=== PATIENT | female | born 1955 | race African-American/Black ===

== ENCOUNTER 2017-12-19 11:04 | Emergency (ER) | payer SELFPAY ==
[2017-12-19] MEDS ORDERED: predniSONE 20 MG TAB ONE (12:38)
[2017-12-19] MEDS ORDERED: ACETAMINOPHEN 500 MG TAB ONE (12:38)
[2017-12-19] MEDS ORDERED: DIAZEPAM 10 MG/2 ML INJ SYRINGE ONE (12:42)
--- NOTE | 2017-12-19 13:29 | EDPHYS ---
Physician Documentation [facility] Name: Jahaira Coe Age: 62 yrs Sex: Female : 1955 Arrival Date: 12/19/2017 Time: 11:06 Bed 20 Private MD: ED Physician Vadim Esposito HPI: 12/19 13:20 This 62 yrs old Black Female presents to ER via Ambulatory with complaints of Back Pain.wa 13:20 The patient presents with pain that is chronic, with no known mechanism of injury. The wa symptoms are located in the low back, coccyx area. Onset: The symptoms/episode began/occurred 3 day(s) ago, h/o back pain. states worsen x 3 days. radiates down both legs. no incontinence. down both legs. Associated signs and symptoms: Pertinent positives: numbness, tingling, Pertinent negatives: abdominal pain, chest pain, constipation, dysuria. The problem was sustained from a chronic condition. Modifying factors: The patient symptoms are alleviated by nothing, the patient symptoms are aggravated by movement. Severity of symptoms: At their worst the symptoms were moderate, in the emergency department the symptoms are unchanged. The patient has experienced similar episodes in the past, multiple times. The patient has not recently seen a physician. Historical: - Allergies: 11:29 No Known Allergies; aa5 - PMHx: 11:29 "borderline diabetic"; Hypertension; herniated discs; aa5 - PSHx: 11:29 ; Hysterectomy; aa5 - Immunization history:: Adult Immunizations up to date. - Social history:: Smoking status: Patient/guardian denies using tobacco. - Family history:: not pertinent. - Hospitalizations: : No recent hospitalization is reported. ROS: 13:26 Constitutional: Negative for fever, chills, and weight loss, Eyes: Negative for injury, wa pain, redness, and discharge, ENT: Negative for injury, pain, and discharge, Neck: Negative for injury, pain, and swelling, Cardiovascular: Negative for chest pain, palpitations, and edema, Respiratory: Negative for shortness of breath, cough, wheezing, and pleuritic chest pain, Abdomen/GI: Negative for abdominal pain, nausea, vomiting, diarrhea, and constipation, : Negative for injury, bleeding, discharge, and swelling, MS/Extremity: Negative for injury and deformity, Skin: Negative for injury, rash, and discoloration. 13:26 Back: Positive for pain with movement. 13:26 Neuro: Positive for numbness, tingling, of the both lower extremities. 13:26 All other systems are negative. Vital Signs: 11:29 BP 117 / 86; Pulse 91; Resp 18 S; Temp 98.2(TE); Pulse Ox 97% on R/A; Weight 83.91 kg aa5 (R); Height 5 ft. 4 in. (162.56 cm) (R); Pain 9/10; 12:29 BP 123 / 77; Pulse 84; Resp 18; Pulse Ox 100% on R/A; Pain 9/10; ed1 13:26 BP 120 / 75; Pulse 88; Resp 17; Temp 98.3(O); Pulse Ox 100% on R/A; Pain 6/10; ed1 11:29 Body Mass Index 31.75 (83.91 kg, 162.56 cm) aa5 MDM: 12:19 Patient medically screened. va 13:27 Differential diagnosis: chronic. acute on chronic. pain relief. close f/u with her doc. va Data reviewed: vital signs, nurses notes. Administered Medications: 12:51 Drug: Valium 5 mg Route: IM; Site: left gluteus; ed1 13:35 Follow up: Response: No adverse reaction; Pain is decreased ed1 12:52 Drug: Tylenol 1000 mg Route: PO; ed1 13:35 Follow up: Response: No adverse reaction; Pain is decreased ed1 12:52 Drug: predniSONE 40 mg Route: PO; ed1 13:35 Follow up: Response: No adverse reaction ed1 Disposition: 12/19/17 13:29 Discharged to Home. Impression: Low banck Pain with radiculopathy. - Condition is Stable. - Discharge Instructions: Back Pain, Adult, [id number]. - Prescriptions for Valium 5 mg Oral Tablet - take 1 tablet by ORAL route Every night As needed; 6 tablet. Prednisone 20 mg Oral Tablet - take 2 tablets by ORAL route once daily for 4 days; 8 tablet. - Medication Reconciliation Form, Thank You Letter, Antibiotic Education, Prescription Opioid Use form. - Follow up: Private Physician; When: 2 - 3 days. - Problem is an acute exacerbation. - Symptoms have improved. - Notes: take medicines as prescribed. follow up with your doctor within 2-3 days Signatures: Mindi Duarte, RN RN aa5 Jacqueline Turner, TRAFFIC LINE PAINTER TRAFFIC LINE PAINTER ed1 Vadim Esposito MD MD wa Corrections: (The following items were deleted from the chart) 13:36 13:29 12/19/2017 13:29 Discharged to Home. Impression: Low banck Pain with ed1 radiculopathy. Condition is Stable. Forms are Medication Reconciliation Form, Thank You Letter, Antibiotic Education, Prescription Opioid Use. Follow up: Private Physician; When: 2 - 3 days. Problem is an acute exacerbation. Symptoms have improved. wa
--- NOTE | 2017-12-19 13:29 | ER ---
Nurse's Notes [facility] Name: Jahaira Coe Age: 62 yrs Sex: Female : 1955 Arrival Date: 12/19/2017 Time: 11:06 Bed 20 Private MD: Diagnosis: Low banck Pain with radiculopathy Presentation: 12/19 11:27 Presenting complaint: Patient states: "I have 3 herniated disc on my back and I think I aa5 aggravated it yesterday". Pt c/o back pain. Transition of care: patient was not received from another setting of care. Onset of symptoms was December 18, 2017. Initial Sepsis Screen: Does the patient meet any 2 criteria? No. Patient's initial sepsis screen is negative. Does the patient have a suspected source of infection? No. Patient's initial sepsis screen is negative. Care prior to arrival: None. 11:27 Method Of Arrival: Ambulatory aa5 11:27 Acuity: LUIGI 4 aa5 Historical: - Allergies: 11:29 No Known Allergies; aa5 - PMHx: 11:29 "borderline diabetic"; Hypertension; herniated discs; aa5 - PSHx: 11:29 ; Hysterectomy; aa5 - Immunization history:: Adult Immunizations up to date. - Social history:: Smoking status: Patient/guardian denies using tobacco. - Family history:: not pertinent. - Hospitalizations: : No recent hospitalization is reported. Screenin:12 Abuse screen: Denies threats or abuse. Denies injuries from another. Nutritional ed1 screening: No deficits noted. Tuberculosis screening: No symptoms or risk factors identified. Fall Risk None identified. Assessment: 12:12 General: Appears uncomfortable, Behavior is calm, cooperative. Pain: Complains of pain ed1 in low back area Pain radiates to right leg and left leg Pain currently is 9 out of 10 on a pain scale. Quality of pain is described as sharp, shooting, Pain began 2-3 days ago. Is continuous. Neuro: Level of Consciousness is awake, alert, obeys commands, Oriented to person, place, time, situation, Admissions Dean are equal bilaterally Moves all extremities. Full function Gait is steady, Speech is normal, Facial symmetry appears normal, Pupils are PERRLA, Tingling in right leg and left leg. Cardiovascular: Denies chest pain, Heart tones S1 S2 present. Respiratory: Airway is patent Trachea midline Respiratory effort is even, unlabored, Respiratory pattern is regular, symmetrical, Breath sounds are clear bilaterally. GI: No signs and/or symptoms were reported involving the gastrointestinal system. : No signs and/or symptoms were reported regarding the genitourinary system. EENT: No signs and/or symptoms were reported regarding the EENT system. Derm: Skin is intact, is healthy with good turgor, Skin is dry, Skin is normal, Skin temperature is warm. Musculoskeletal: Circulation, motion, and sensation intact. Range of motion: intact in all extremities. 12:12 Reassessment: I agree with assessment completed by PAM Phillips. iw 12:29 Reassessment: Patient appears in no apparent distress at this time. No changes from ed1 previously documented assessment. Patient and/or family updated on plan of care and expected duration. Pain level reassessed. Patient is alert, oriented x 3, equal unlabored respirations, skin warm/dry/pink. Patient states symptoms have not improved. 13:26 Reassessment: Patient appears in no apparent distress at this time. Patient and/or ed1 family updated on plan of care and expected duration. Pain level reassessed. Patient is alert, oriented x 3, equal unlabored respirations, skin warm/dry/pink. Patient states feeling better. Patient states symptoms have improved. Vital Signs: 11:29 BP 117 / 86; Pulse 91; Resp 18 S; Temp 98.2(TE); Pulse Ox 97% on R/A; Weight 83.91 kg aa5 (R); Height 5 ft. 4 in. (162.56 cm) (R); Pain 9/10; 12:29 BP 123 / 77; Pulse 84; Resp 18; Pulse Ox 100% on R/A; Pain 9/10; ed1 13:26 BP 120 / 75; Pulse 88; Resp 17; Temp 98.3(O); Pulse Ox 100% on R/A; Pain 6/10; ed1 11:29 Body Mass Index 31.75 (83.91 kg, 162.56 cm) aa5 ED Course: 11:06 Patient arrived in ED. as 11:28 Triage completed. aa5 11:28 Arm band placed on. aa5 12:12 Jacqueline Turner LVN is Primary Nurse. ed1 12:12 Patient has correct armband on for positive identification. Bed in low position. Call ed1 light in reach. Side rails up X 1. 12:18 Vadim Esposito MD is Attending Physician. 13:34 No provider procedures requiring assistance completed. Patient did not have IV access ed1 during this emergency room visit. Administered Medications: 12:51 Drug: Valium 5 mg Route: IM; Site: left gluteus; ed1 13:35 Follow up: Response: No adverse reaction; Pain is decreased ed1 12:52 Drug: Tylenol 1000 mg Route: PO; ed1 13:35 Follow up: Response: No adverse reaction; Pain is decreased ed1 12:52 Drug: predniSONE 40 mg Route: PO; ed1 13:35 Follow up: Response: No adverse reaction ed1 Outcome: 13:29 Discharge ordered by . wa 13:34 Discharged to home ambulatory, with family. ed1 13:34 Condition: good 13:34 Discharge instructions given to patient, Instructed on discharge instructions, follow up and referral plans. medication usage, Demonstrated understanding of instructions, follow-up care, medications, Prescriptions given X 2. 13:36 Patient left the ED. ed1 Signatures: Christina Lyles Irene, RN RN iw Mindi Duarte RN RN aa5 Jacqueline Turner, ADJUSTER ADJUSTER ed1 Vadim Esposito MD MD dc
[2017-12-19 13:42] VITALS: O2SAT 100
[2017-12-19 13:43] VITALS: BP 120/75; TEMP 98.3
== END 2017-12-19 13:36 | disposition home or self-care (01) ==
LOC: ER 11:04
DX: M51.17 Intervertebral disc disorders with radiculopathy, lumbosacral region (principal); I10 Essential (primary) hypertension
CPT/HCPCS: 96372; 99283; J3360; J7512

== ENCOUNTER 2018-06-09 22:11 | Emergency (ER) | payer SELFPAY ==
[2018-06-09] MEDS ORDERED: NA CHLORIDE 0.9% 1,000 ML ONE (22:32)
[2018-06-09] MEDS ORDERED: ONDANSETRON 4 MG/2 ML VIAL ONE (22:34)
[2018-06-09 22:48] LABS: Absolute Lymphocytes (CBC) 5.5 K/uL (0.7-4.9); Absolute Neutrophil 8.5 K/uL (1.8-8.0); Basophils % 0.8 % (0-1.3); Eosinophils % 1.1 % (0-4.4); Hematocrit 39.2 % (36.0-45.0); Lymphocytes % 35.9 % (15.3-44.8); MCH 29.9 pg (27.0-35.0); MCV 88.9 fL (80-100); MPV 9.5 fL (7.6-11.3); Monocytes % 6.6 % (3.3-12.3); RBC Red Blood Cell Count 4.41 M/uL (3.86-4.86)
[2018-06-09 23:00] LABS: ALT/SGPT 14 U/L (12-78); AST/SGOT 13 U/L (15-37); Albumin 3.7 g/dL (3.4-5.0); Alkaline Phosphatase 68 U/L (45-117); BUN Blood Urea Nitrogen 13 mg/dL (7-18); Bicarbonate 34 mmol/L (21-32); Bilirubin Direct < 0.1 mg/dL (0-0.2); Bilirubin Total 0.2 mg/dL (0.2-1.0); Glucose Level 124 mg/dL (74-106); Lipase 133 U/L (73-393); Potassium 3.4 mmol/L (3.5-5.1); Protein, Total 8.3 g/dL (6.4-8.2); Sodium Level 139 mmol/L (136-145)
--- NOTE | 2018-06-10 01:19 | EDPHYS ---
Physician Documentation [facility] Name: Jahaira Coe Age: 62 yrs Sex: Female : 1955 Arrival Date: 06/09/2018 Time: 22:12 Bed 20 Private MD: ED Physician Ryan Segovia HPI: 06/10 00:00 This 62 yrs old Black Female presents to ER via Ambulatory with complaints of Diarrhea, pm1 nausea, abdominal pain. 00:00 The patient presents to the emergency department with nausea, vomiting, 3 times since pm1 the onset of symptoms, diarrhea, On and off for the past 1 week. 3 times diarrhea per day when she had diarrhea, abdominal pain, of the right lower quadrant and left lower quadrant, described as crampy, and does not radiate. Onset: The symptoms/episode began/occurred 1 week(s) ago. Possible causes: bad food exposure, salad. The symptoms are aggravated by nothing. The symptoms are alleviated by nothing. Associated signs and symptoms: Pertinent negatives: dysuria, fever. Severity of symptoms: in the emergency department the symptoms have improved. The patient has not recently seen a physician. Believes that she ate a bad salad prior to onset of symptoms of vomiting, diarrhea, and abdominal cramping. Onset of symptoms one week ago. Diarrhea and vomiting have not been everyday. Historical: - Allergies: 06/09 22:20 No Known Allergies; lp1 - Home Meds: 22:20 losartan 25 mg oral tab once daily [Active]; metformin 500 mg oral tab PRN [Active]; lp1 - PMHx: 22:20 "borderline diabetic"; herniated discs; Hypertension; lp1 - PSHx: 22:20 ; Hysterectomy; lp1 - Immunization history:: Adult Immunizations up to date. - Social history:: Smoking status: Patient/guardian denies using tobacco. - Ebola Screening: : No symptoms or risks identified at this time. ROS: 06/10 00:00 Constitutional: Negative for fever, chills, and weight loss, Eyes: Negative for injury, pm1 pain, redness, and discharge, ENT: Negative for injury, pain, and discharge, Neck: Negative for injury, pain, and swelling, Cardiovascular: Negative for chest pain, palpitations, and edema, Respiratory: Negative for shortness of breath, cough, wheezing, and pleuritic chest pain. Back: Negative for injury and pain, : Negative for injury, bleeding, discharge, and swelling, MS/Extremity: Negative for injury and deformity, Skin: Negative for injury, rash, and discoloration, Neuro: Negative for headache, weakness, numbness, tingling, and seizure. Abdomen/GI: Positive for abdominal pain, nausea, vomiting, and diarrhea, Negative for constipation. Exam: 00:00 Constitutional: This is a well developed, well nourished patient who is awake, alert, pm1 and in no acute distress. Head/Face: Normocephalic, atraumatic. Eyes: Pupils equal round and reactive to light, extra-ocular motions intact. Lids and lashes normal. Conjunctiva and sclera are non-icteric and not injected. Cornea within normal limits. Periorbital areas with no swelling, redness, or edema. ENT: Nares patent. No nasal discharge, no septal abnormalities noted. Tympanic membranes are normal and external auditory canals are clear. Oropharynx with no redness, swelling, or masses, exudates, or evidence of obstruction, uvula midline. Mucous membranes moist. Neck: Trachea midline, no thyromegaly or masses palpated, and no cervical lymphadenopathy. Supple, full range of motion without nuchal rigidity, or vertebral point tenderness. No Meningismus. Chest/axilla: Normal chest wall appearance and motion. Nontender with no deformity. No lesions are appreciated. Cardiovascular: Regular rate and rhythm with a normal S1 and S2. No gallops, murmurs, or rubs. Normal PMI, no JVD. No pulse deficits. Respiratory: Lungs have equal breath sounds bilaterally, clear to auscultation and percussion. No rales, rhonchi or wheezes noted. No increased work of breathing, no retractions or nasal flaring. Abdomen/GI: Soft, non-tender, with normal bowel sounds. No distension or tympany. No guarding or rebound. No evidence of tenderness throughout. Back: No spinal tenderness. No costovertebral tenderness. Full range of motion. Skin: Warm, dry with normal turgor. Normal color with no rashes, no lesions, and no evidence of cellulitis. MS/ Extremity: Pulses equal, no cyanosis. Neurovascular intact. Full, normal range of motion. 00:00 Neuro: Orientation: is normal, Motor: is normal, moves all fours. Vital Signs: 06/09 22:20 BP 135 / 83; Pulse 88; Resp 18; Temp 98.5(O); Pulse Ox 95% on R/A; Weight 83.46 kg; lp1 Height 5 ft. 4 in. (162.56 cm); Pain 6/10; 23:12 BP 129 / 55; Pulse 68; Resp 16 S; Pulse Ox 100% on R/A; jd3 06/10 00:08 BP 124 / 76; Pulse 73; Resp 16 S; Pulse Ox 97% on R/A; jd3 01:27 BP 129 / 83; Pulse 72; Resp 17 S; Pulse Ox 98% on R/A; jd3 06/09 22:20 Body Mass Index 31.58 (83.46 kg, 162.56 cm) lp1 MDM: 06/09 22:14 Patient medically screened. pm1 06/10 01:14 Data reviewed: vital signs. Data interpreted: Pulse oximetry: on room air is 97 %. pm1 Interpretation: normal. Counseling: I had a detailed discussion with the patient and/or guardian regarding: the historical points, exam findings, and any diagnostic results supporting the discharge/admit diagnosis, lab results, radiology results, the need for outpatient follow up, to return to the emergency department if symptoms worsen or persist or if there are any questions or concerns that arise at home. 01:14 Differential diagnosis: Nonspecific abd pain, cholecystitis, pancreatitis, pm1 appendicitis, viral gastroenteritis, gastroenteritis. 06/09 22:22 Order name: Basic Metabolic Panel; Complete Time: 23:00 pm1 06/09 22:22 Order name: CBC with Diff; Complete Time: 23:00 pm1 06/09 22:22 Order name: Hepatic Function; Complete Time: 23:00 pm1 06/09 22:22 Order name: Lipase; Complete Time: 23:00 pm1 06/09 22:22 Order name: CT Abd/Pelvis - W/Contrast pm1 06/09 22:22 Order name: IV Saline Lock; Complete Time: 22:33 pm1 06/09 22:22 Order name: Labs collected and sent; Complete Time: 22:33 pm1 06/09 22:22 Order name: Urine Dipstick-Ancillary (obtain specimen); Complete Time: 00:01 pm1 Administered Medications: 06/09 22:25 Drug: NS 0.9% 1000 ml Route: IV; Rate: 1000 ml; Site: right antecubital; ea 06/10 01:28 Follow up: Response: No adverse reaction; IV Status: Completed infusion; IV Intake: jd3 1000ml 06/09 22:25 Drug: Zofran 4 mg Route: IVP; Site: right antecubital; ea 06/10 01:28 Follow up: Response: No adverse reaction [facility] 06/09 22:32 CANCELLED (Duplicate Order): Zofran 2 mg IVP once; over 2 minutes ea Disposition: 06/10 02:06 Co-signature as Attending Physician, Ryan Segovia MD I agree with the assessment and tw4 plan of care. Attestation: The patient's history, exam findings, diagnostics, and a summary of any interventions or procedures was reviewed in detail with Alvin Easley NP. Disposition: 06/10/18 01:15 Discharged to Home. Impression: Diarrhea, unspecified, Nausea and vomiting, Viral gastroenteritis . - Condition is Stable. - Discharge Instructions: Food Choices to Help Relieve Diarrhea, Adult, Diarrhea, Adult, Nausea and Vomiting, Adult, Viral Gastroenteritis, Adult. - Prescriptions for Bentyl 20 mg Oral Tablet - take 1 tablet by ORAL route every 6 hours As needed; 20 tablet. Zofran 4 mg Oral Tablet - take 1 tablet by ORAL route every 12 hours As needed; 20 tablet. - Medication Reconciliation Form, Thank You Letter, Antibiotic Education, Prescription Opioid Use, Work release form form. - Follow up: Emergency Department; When: As needed; Reason: Worsening of condition. Follow up: Private Physician; When: 2 - 3 days; Reason: Recheck today's complaints, Continuance of care, Re-evaluation by your physician. - Problem is new. - Symptoms have improved. Signatures: Dispatcher [employer] EDMS Daisy Lay RN RN lp1 Alvin Easley NP [employer] pm1 Tamiko Milner RN RN ea Davies, Jonathon, RN RN Ryan Coates MD MD tw4 Corrections: (The following items were deleted from the chart) 06/0932 22:32 Zofran 2 mg IVP once; over 2 minutes ordered. selene morton 06/10 01:28 01:15 06/10/2018 01:15 Discharged to Home. Impression: Diarrhea, unspecified; Nausea jd3 and vomiting; Viral gastroenteritis . Condition is Stable. Forms are Medication Reconciliation Form, Thank You Letter, Antibiotic Education, Prescription Opioid Use. Follow up: Emergency Department; When: As needed; Reason: Worsening of condition. Follow up: Private Physician; When: 2 - 3 days; Reason: Recheck today's complaints, Continuance of care, Re-evaluation by your physician. Problem is new. Symptoms have improved. pm1
--- NOTE | 2018-06-10 01:19 | ER ---
Nurse's Notes [facility] Name: Jahaira Coe Age: 62 yrs Sex: Female : 1955 Arrival Date: 06/09/2018 Time: 22:12 Bed 20 Private MD: Diagnosis: Diarrhea, unspecified;Nausea and vomiting;Viral gastroenteritis Presentation: 06/09 22:18 Presenting complaint: Patient states: Generalized abdominal pain for a week and a half; lp1 some nausea, vomiting, diarrhea; Denies any fever. Transition of care: patient was not received from another setting of care. Onset of symptoms was June 09, 2018. Risk Assessment: Do you want to hurt yourself or someone else? Patient reports no desire to harm self or others. Initial Sepsis Screen: Does the patient meet any 2 criteria? No. Patient's initial sepsis screen is negative. Does the patient have a suspected source of infection? No. Patient's initial sepsis screen is negative. Care prior to arrival: None. 22:18 Method Of Arrival: Ambulatory lp1 22:18 Acuity: LUIGI 3 lp1 Historical: - Allergies: 22:20 No Known Allergies; lp1 - Home Meds: 22:20 losartan 25 mg oral tab once daily [Active]; metformin 500 mg oral tab PRN [Active]; lp1 - PMHx: 22:20 "borderline diabetic"; herniated discs; Hypertension; lp1 - PSHx: 22:20 ; Hysterectomy; lp1 - Immunization history:: Adult Immunizations up to date. - Social history:: Smoking status: Patient/guardian denies using tobacco. - Ebola Screening: : No symptoms or risks identified at this time. Screenin:20 Abuse screen: Denies threats or abuse. Denies injuries from another. Nutritional lp1 screening: No deficits noted. Tuberculosis screening: No symptoms or risk factors identified. Fall Risk None identified. Assessment: 22:31 General: Appears in no apparent distress. uncomfortable, Behavior is calm, cooperative, jd3 appropriate for age. Pain: Complains of pain in abdomen Quality of pain is described as aching, Also complains of nausea. Neuro: Level of Consciousness is awake, alert, obeys commands, Oriented to person, place, time, situation, Appropriate for age. Cardiovascular: Denies chest pain, Capillary refill < 3 seconds Patient's skin is warm and dry. Respiratory: Airway is patent Respiratory effort is even, unlabored, Respiratory pattern is regular, symmetrical, Denies shortness of breath. GI: Abdomen is round non-distended, Bowel sounds present X 4 quads. Abd is soft X 4 quads Abdomen is tender to palpation in right lower quadrant and left lower quadrant Reports diarrhea, nausea, vomiting. : No signs and/or symptoms were reported regarding the genitourinary system. EENT: No signs and/or symptoms were reported regarding the EENT system. Derm: Skin is intact, Skin is dry, Skin is normal, Skin temperature is warm. Musculoskeletal: Circulation, motion, and sensation intact. Range of motion: intact in all extremities. 22:54 Reassessment: CT notified of pt finishing PO contrast. jd3 23:12 Reassessment: Patient appears in no apparent distress at this time. Patient and/or [facility] family updated on plan of care and expected duration. Pain level reassessed. Patient is alert, oriented x 3, equal unlabored respirations, skin warm/dry/pink. 06/10 00:09 Reassessment: Patient appears in no apparent distress at this time. No changes from jd3 previously documented assessment. Patient and/or family updated on plan of care and expected duration. Pain level reassessed. Patient is alert, oriented x 3, equal unlabored respirations, skin warm/dry/pink. 01:27 Reassessment: Patient appears in no apparent distress at this time. Patient and/or jd3 family updated on plan of care and expected duration. Pain level reassessed. Patient is alert, oriented x 3, equal unlabored respirations, skin warm/dry/pink. Patient states feeling better. Vital Signs: 06/09 22:20 BP 135 / 83; Pulse 88; Resp 18; Temp 98.5(O); Pulse Ox 95% on R/A; Weight 83.46 kg; lp1 Height 5 ft. 4 in. (162.56 cm); Pain 6/10; 23:12 BP 129 / 55; Pulse 68; Resp 16 S; Pulse Ox 100% on R/A; jd3 06/10 00:08 BP 124 / 76; Pulse 73; Resp 16 S; Pulse Ox 97% on R/A; jd3 01:27 BP 129 / 83; Pulse 72; Resp 17 S; Pulse Ox 98% on R/A; jd3 06/09 22:20 Body Mass Index 31.58 (83.46 kg, 162.56 cm) lp1 ED Course: 06/09 22:12 Patient arrived in ED. ds1 22:14 Ernesto Carmen, RANDAL is Primary Nurse. jd3 22:14 Alvin Easley NP is PHCP. pm1 22:14 Ryan Segovia MD is Attending Physician. pm1 22:19 Triage completed. lp1 22:20 Arm band placed on left wrist. lp1 22:23 Inserted saline lock: 20 gauge in right antecubital area, using aseptic technique. jd3 Blood collected. 22:31 Patient has correct armband on for positive identification. Bed in low position. Call jd3 light in reach. Side rails up X2. Adult w/ patient. 22:44 Oral contrast given. nj 06/10 00:[address] via wheelchair. kw1 00:23 CT Abd/Pelvis - W/Contrast In Process Unspecified. EDMS 00:24 CT completed. Patient tolerated procedure well. Patient moved back from CT. kw1 01:25 No provider procedures requiring assistance completed. IV discontinued, intact, jd3 bleeding controlled, No redness/swelling at site. Pressure dressing applied. Administered Medications: 06/09 22:25 Drug: NS 0.9% 1000 ml Route: IV; Rate: 1000 ml; Site: right antecubital; ea 06/10 01:28 Follow up: Response: No adverse reaction; IV Status: Completed infusion; IV Intake: jd3 1000ml 06/09 22:25 Drug: Zofran 4 mg Route: IVP; Site: right antecubital; ea 06/10 01:28 Follow up: Response: No adverse reaction jd3 06/09 22:32 CANCELLED (Duplicate Order): Zofran 2 mg IVP once; over 2 minutes ea Intake: 06/10 01:28 IV: 1000ml; Total: 1000ml. jd3 Outcome: 01:15 Discharge ordered by . pm1 01:26 Discharged to home ambulatory, with family. jd3 01:26 Condition: stable 01:26 Discharge instructions given to patient, Instructed on discharge instructions, follow up and referral plans. medication usage, Demonstrated understanding of instructions, follow-up care, medications, Prescriptions given X 2. 01:28 Patient left the ED. jd3 Signatures: Dispatcher [employer] EDMS Jigna Callaway ds1 Daisy Lay RN RN lp1 Alvin Easley, PULP AND PAPER TESTER PULP AND PAPER TESTER pm1 Alonzo Mckeon Elena, RN RN Ernesto Hernandez RN RN jd3 Arina Espinosa kw1
[2018-06-10 02:13] VITALS: TEMP 98.5
[2018-06-10 02:17] VITALS: BP 129/83; O2SAT 98
--- NOTE | 2018-06-10 08:19 | RAD REPORT ---
EXAM DESCRIPTION: CT - Abdomen Pelvis W Contrast - 06/10/2018 1:35 am CLINICAL HISTORY: Abdominal pain. Generalized abdominal pain with vomiting and diarrhea COMPARISON: December 2016 TECHNIQUE: Computed axial tomography of the abdomen and pelvis was obtained. 100 cc Isovue-300 is ad ministered intravenously. Oral contrast was given.Preliminary report [facility] and was reviewed prior to dictation All CT scans are performed using dose optimization technique as appropriate and may include automated exposure control or mA/KV adjustment according to patient size. FINDINGS: Small hepatic cyst is present Spleen, pancreas, adrenals and left kidney appear unremarkable. 4.4 centimeter right renal cyst is no aashish. Small umbilical hernia is seen. Small to moderate right inguinal hernia contains fat. There is no evidence of diverticulitis Fluid is present within nondilated colon. Small hiatal hernia is seen IMPRESSION: Fluid within nondilated colon may indicate a gastroenteritis
== END 2018-06-10 01:28 | disposition home or self-care (01) ==
LOC: ER 22:11
DX: A08.4 Viral intestinal infection, unspecified (principal); R19.7 Diarrhea, unspecified; I10 Essential (primary) hypertension
CPT/HCPCS: 36415; 74177; 80048; 80076; 83690; 85025; J2405; J7030; Q9967

== ENCOUNTER 2018-07-25 19:19 | Emergency (ER) | payer OTHER, SELFPAY ==
[2018-07-25] MEDS ORDERED: KETOROLAC 30 MG/ML INJ ONE (19:59)
[2018-07-25] MEDS ORDERED: NA CHLORIDE 0.9% 1,000 ML ONE (19:59)
[2018-07-25 20:10] LABS: Absolute Lymphocytes (CBC) 4.5 K/uL (0.7-4.9); Absolute Monocytes 0.7 K/uL (0.1-1.3); Absolute Neutrophil 7.2 K/uL (1.8-8.0); Basophils % 0.3 % (0-1.3); Eosinophils % 1.4 % (0-4.4); MCH 29.8 pg (27.0-35.0); MCV 90.5 fL (80-100); MPV 8.9 fL (7.6-11.3); Monocytes % 5.4 % (3.3-12.3)
--- NOTE | 2018-07-25 20:27 | RAD REPORT ---
EXAM DESCRIPTION: CT - Stone Protocol - 07/25/2018 8:06 pm CLINICAL HISTORY: Abdominal pain. Right flank pain COMPARISON: May 2018 TECHNIQUE: Computed axial tomography of the abdomen pelvis was obtained without oral or IV contrast. Lack of IV and oral contrast limits evaluation of solid organs, bowel, and vessels. Coronal reformat aashish images were obtained and reviewed. All CT scans are performed using dose optimization technique as appropriate and may include automated exposure control or mA/KV adjustment according to patient size. FINDINGS: A renal calculus is not seen. An ureteral calculus is not noted. A bladder calculus is not present. 4 centimeter right renal cyst A small hepatic cyst. , spleen, pancreas and adrenals appear grossly normal There is no evidence of diverticulitis. Hysterectomy has been performed. An adnexal mass is not seen. Right inguinal hernia contains fat Tiny umbilical hernia. Stomach is mildly distended IMPRESSION: Negative for a genitourinary calculus Mild gastric distention
[2018-07-25 20:38] LABS: ALT/SGPT 14 U/L (12-78); AST/SGOT 6 U/L (15-37); Albumin 3.5 g/dL (3.4-5.0); Alkaline Phosphatase 65 U/L (45-117); BUN Blood Urea Nitrogen 9 mg/dL (7-18); Bicarbonate 31 mmol/L (21-32); Bilirubin Direct < 0.1 mg/dL (0-0.2); Bilirubin Total 0.2 mg/dL (0.2-1.0); Glucose Level 147 mg/dL (74-106); Lipase 445 U/L (73-393); Potassium 3.9 mmol/L (3.5-5.1); Protein, Total 7.7 g/dL (6.4-8.2); Sodium Level 140 mmol/L (136-145)
[2018-07-25] MEDS ORDERED: DIAZEPAM 5 MG TABLET ONE (20:48)
[2018-07-25 21:02] LABS: Urine Blood NEGATIVE (NEG); Urine Glucose NEGATIVE (NEG); Urine Protein NEGATIVE (NEG); Urine pH 7.5 (5.0-7.0)
[2018-07-25 21:11] LABS: Urine Bacteria <20 /HPF (<20); Urine Culture Reflex Order NOT NEEDED; Urine RBC <5 /HPF (NONE SEEN)
--- NOTE | 2018-07-25 21:20 | ER ---
Nurse's Notes [facility] Name: Jahaira Coe Age: 62 yrs Sex: Female : 1955 Arrival Date: 07/25/2018 Time: 19:21 Bed 18 Private MD: Diagnosis: Low back pain;Strain of muscle, fascia and tendon of lower back Presentation: 07/25 19:28 Presenting complaint: Patient states: Right side pain that radiates to back since tl2 yesterday. Denies urinary symptoms, N/V/D. Transition of care: patient was not received from another setting of care. Onset of symptoms was July 24, 2018. Risk Assessment: Do you want to hurt yourself or someone else? Patient reports no desire to harm self or others. Initial Sepsis Screen: Does the patient meet any 2 criteria? No. Patient's initial sepsis screen is negative. Does the patient have a suspected source of infection? No. Patient's initial sepsis screen is negative. Care prior to arrival: None. 19:28 Method Of Arrival: Ambulatory tl2 19:28 Acuity: LUIGI 3 tl2 Historical: - Allergies: 19:29 No Known Allergies; tl2 - Home Meds: 19:29 losartan 25 mg Oral tab once daily [Active]; metformin 500 mg Oral tab PRN [Active]; tl2 - PMHx: 19:29 "borderline diabetic"; herniated discs; Hypertension; tl2 - PSHx: 19:29 Hysterectomy; tl2 - Immunization history:: Adult Immunizations up to date. - Social history:: Smoking status: Patient/guardian denies using tobacco. - Ebola Screening: : No symptoms or risks identified at this time. Screenin:30 Abuse screen: Denies threats or abuse. Nutritional screening: No deficits noted. tl2 Tuberculosis screening: No symptoms or risk factors identified. Fall Risk None identified. Assessment: 19:43 General: Appears in no apparent distress. uncomfortable, Behavior is calm, cooperative, jd3 appropriate for age. Pain: Complains of pain in posterior aspect of right lateral abdomen and anterior aspect of right lateral abdomen Quality of pain is described as aching. Neuro: Level of Consciousness is awake, alert, obeys commands, Oriented to person, place, time, situation, Appropriate for age. Cardiovascular: Capillary refill < 3 seconds Patient's skin is warm and dry. Respiratory: Airway is patent Respiratory effort is even, unlabored, Respiratory pattern is regular, symmetrical. GI: Abdomen is round non-distended, Bowel sounds present X 4 quads. Abd is soft and non tender X 4 quads. Patient currently denies diarrhea, nausea, vomiting. : Denies burning with urination, inability to void, urinary frequency, urgency. EENT: No signs and/or symptoms were reported regarding the EENT system. Derm: Skin is intact, Skin is dry, Skin is normal, Skin temperature is warm. Musculoskeletal: Circulation, motion, and sensation intact. Range of motion: intact in all extremities. 20:13 Reassessment: Patient appears in no apparent distress at this time. Patient and/or jd3 family updated on plan of care and expected duration. Pain level reassessed. Patient is alert, oriented x 3, equal unlabored respirations, skin warm/dry/pink. 21:07 Reassessment: Patient appears in no apparent distress at this time. Patient and/or jd3 family updated on plan of care and expected duration. Pain level reassessed. Patient is alert, oriented x 3, equal unlabored respirations, skin warm/dry/pink. 21:30 Reassessment: Patient appears in no apparent distress at this time. Patient and/or jd3 family updated on plan of care and expected duration. Pain level reassessed. Patient is alert, oriented x 3, equal unlabored respirations, skin warm/dry/pink. Patient states feeling better. Vital Signs: 19:29 BP 130 / 75; Pulse 84; Resp 18; Temp 99.4(O); Pulse Ox 100% on R/A; Weight 83.01 kg; tl2 Height 5 ft. 4 in. (162.56 cm); Pain 8/10; 20:14 BP 112 / 79; Pulse 76; Resp 17 S; Pulse Ox 99% on R/A; jd3 21:07 BP 127 / 65; Pulse 67; Resp 16 S; Pulse Ox 100% on R/A; jd3 19:29 Body Mass Index 31.41 (83.01 kg, 162.56 cm) tl2 ED Course: 19:21 Patient arrived in ED. mr 19:25 Alvin Easley NP is PHCP. pm1 19:25 Jaren Knight MD is Attending Physician. pm1 19:29 Triage completed. tl2 19:29 Arm band placed on right wrist. tl2 19:39 Ernesto Carmen, RN is Primary Nurse. jd3 19:45 Jose Coe MD is Attending Physician. pm1 19:45 Patient has correct armband on for positive identification. Bed in low position. Call jd3 light in reach. Side rails up X 1. 20:01 Inserted saline lock: 20 gauge in left antecubital area, using aseptic technique. Blood oe collected. 20:06 CT completed. Patient moved to SD via wheelchair. Patient moved back from SD. 20:06 CT Stone Protocol In Process Unspecified. EDMS 21:29 No provider procedures requiring assistance completed. IV discontinued, intact, jd3 bleeding controlled, No redness/swelling at site. Pressure dressing applied. Administered Medications: 20:00 Drug: TORadol 30 mg Route: IVP; Site: right antecubital; jd3 20:45 Follow up: Response: No adverse reaction jd3 20:00 Drug: NS 0.9% 1000 ml Route: IV; Rate: 1000 ml; Site: right antecubital; jd3 21:30 Follow up: Response: No adverse reaction; IV Status: Completed infusion; IV Intake: jd3 1000ml 20:45 Drug: Valium 5 mg Route: PO; jd3 21:30 Follow up: Response: No adverse reaction jd3 Intake: 21:30 IV: 1000ml; Total: 1000ml. jd3 Outcome: 21:20 Discharge ordered by . pm1 21:29 Discharged to home ambulatory, with family. jd3 21:29 Condition: stable 21:29 Discharge instructions given to patient, Instructed on discharge instructions, follow up and referral plans. medication usage, Demonstrated understanding of instructions, follow-up care, medications, Prescriptions given X 1. 21:31 Patient left the ED. jd3 Signatures: Dispatcher [employer] [facility] Aleah Cameron KatelynLes Alvin Easley, MICROPHONE OPERATOR MICROPHONE OPERATOR pm1 Any Rodriguez, RANDAL RN tl2 Abundio Roberts Ernesto Carmen, RN RN jd3
--- NOTE | 2018-07-25 21:20 | EDPHYS ---
Physician Documentation [facility] Name: Jahaira Coe Age: 62 yrs Sex: Female : 1955 Arrival Date: 07/25/2018 Time: 19:21 Bed 18 Private MD: ED Physician Jose Coe HPI: 07/25 20:25 This 62 yrs old Black Female presents to ER via Ambulatory with complaints of Right pm1 Flank Pain. 20:25 The patient complains of pain in the right low back. The pain does not radiate. Onset: pm1 The symptoms/episode began/occurred 1 day(s) ago. Modifying factors: the symptoms are aggravated by movement. Associated signs and symptoms: Pertinent negatives: diarrhea, dysuria, fever, headache, nausea, pain radiating to the lower extremities, vomiting. Severity of pain: in the emergency department the pain is actually worse. The patient has not experienced similar symptoms in the past. The patient has not recently seen a physician. Woke up with some right flank pain. Picked up heavy object around noon time and pain worsened. Historical: - Allergies: 19:29 No Known Allergies; tl2 - Home Meds: 19:29 losartan 25 mg Oral tab once daily [Active]; metformin 500 mg Oral tab PRN [Active]; tl2 - PMHx: 19:29 "borderline diabetic"; herniated discs; Hypertension; tl2 - PSHx: 19:29 Hysterectomy; tl2 - Immunization history:: Adult Immunizations up to date. - Social history:: Smoking status: Patient/guardian denies using tobacco. - Ebola Screening: : No symptoms or risks identified at this time. ROS: 20:30 Constitutional: Negative for fever, chills, and weight loss, Eyes: Negative for injury, pm1 pain, redness, and discharge, ENT: Negative for injury, pain, and discharge, Neck: Negative for injury, pain, and swelling, Cardiovascular: Negative for chest pain, palpitations, and edema, Respiratory: Negative for shortness of breath, cough, wheezing, and pleuritic chest pain, Abdomen/GI: Negative for abdominal pain, nausea, vomiting, diarrhea, and constipation. 20:30 : Negative for injury, bleeding, discharge, and swelling, MS/Extremity: Negative for injury and deformity, Skin: Negative for injury, rash, and discoloration, Neuro: Negative for headache, weakness, numbness, tingling, and seizure. 20:30 Back: Positive for pain with movement, flank pain, on the right. Exam: 20:30 Constitutional: This is a well developed, well nourished patient who is awake, alert, pm1 and in no acute distress. Head/Face: Normocephalic, atraumatic. Eyes: Pupils equal round and reactive to light, extra-ocular motions intact. Lids and lashes normal. Conjunctiva and sclera are non-icteric and not injected. Cornea within normal limits. Periorbital areas with no swelling, redness, or edema. ENT: Nares patent. No nasal discharge, no septal abnormalities noted. Tympanic membranes are normal and external auditory canals are clear. Oropharynx with no redness, swelling, or masses, exudates, or evidence of obstruction, uvula midline. Mucous membranes moist. Neck: Trachea midline, no thyromegaly or masses palpated, and no cervical lymphadenopathy. Supple, full range of motion without nuchal rigidity, or vertebral point tenderness. No Meningismus. Chest/axilla: Normal chest wall appearance and motion. Nontender with no deformity. No lesions are appreciated. Cardiovascular: Regular rate and rhythm with a normal S1 and S2. No gallops, murmurs, or rubs. Normal PMI, no JVD. No pulse deficits. Respiratory: Lungs have equal breath sounds bilaterally, clear to auscultation and percussion. No rales, rhonchi or wheezes noted. No increased work of breathing, no retractions or nasal flaring. Abdomen/GI: Soft, non-tender, with normal bowel sounds. No distension or tympany. No guarding or rebound. No evidence of tenderness throughout. 20:30 Skin: Warm, dry with normal turgor. Normal color with no rashes, no lesions, and no evidence of cellulitis. MS/ Extremity: Pulses equal, no cyanosis. Neurovascular intact. Full, normal range of motion. 20:30 Back: normal spinal alignment noted, vertebral tenderness, is not appreciated, muscle spasm, is appreciated in the right low back. 20:30 Neuro: Orientation: is normal, Motor: is normal, moves all fours, strength is normal, strength is 5/5 in all extremities, Gait: is steady, at a normal pace, without difficulty. Vital Signs: 19:29 BP 130 / 75; Pulse 84; Resp 18; Temp 99.4(O); Pulse Ox 100% on R/A; Weight 83.01 kg; tl2 Height 5 ft. 4 in. (162.56 cm); Pain 8/10; 20:14 BP 112 / 79; Pulse 76; Resp 17 S; Pulse Ox 99% on R/A; jd3 21:07 BP 127 / 65; Pulse 67; Resp 16 S; Pulse Ox 100% on R/A; jd3 19:29 Body Mass Index 31.41 (83.01 kg, 162.56 cm) tl2 MDM: 19:26 Patient medically screened. pm1 20:30 ED course: No calculous present on CT stone. Likely musculoskeletal. Patient used pm1 ibuprofen at home which improved the pain for a few hours but return. Then tried Flexeril but no improvement. Will give patient Valium here and if effective will discharge patient home with a prescription. 20:30 Data reviewed: vital signs. Data interpreted: Pulse oximetry: on room air is 99 %. pm1 Interpretation: normal. Counseling: I had a detailed discussion with the patient and/or guardian regarding: the historical points, exam findings, and any diagnostic results supporting the discharge/admit diagnosis, lab results, radiology results, the need for outpatient follow up, to return to the emergency department if symptoms worsen or persist or if there are any questions or concerns that arise at home. 21:26 ED course: Patient pain improved with Valium and Toradol. Patient reports that she now pm1 able to twist her back with less pain. 07/25 19:45 Order name: Basic Metabolic Panel pm1 07/25 19:45 Order name: CBC with Diff pm1 07/25 19:45 Order name: Creatinine for Radiology; Complete Time: 20:22 pm1 07/25 19:45 Order name: Hepatic Function; Complete Time: 20:41 pm1 07/25 19:45 Order name: Lipase; Complete Time: 20:41 pm1 07/25 19:45 Order name: Basic Metabolic Panel; Complete Time: 20:41 EDMS 07/25 19:45 Order name: IV Saline Lock; Complete Time: 20:00 pm1 07/25 19:45 Order name: CT Stone Protocol; Complete Time: 20:29 pm1 07/25 19:45 Order name: CBC with Automated Diff; Complete Time: 20:12 EDMS 07/25 20:24 Order name: Urine Microscopic Only; Complete Time: 21:13 pm1 07/25 20:49 Order name: Urine Dipstick--Ancillary (enter results); Complete Time: 21:06 ar5 07/25 19:45 Order name: Labs collected and sent; Complete Time: 20:00 pm1 07/25 20:24 Order name: Urine Dipstick-Ancillary (obtain specimen); Complete Time: 20:25 pm1 Administered Medications: 20:00 Drug: TORadol 30 mg Route: IVP; Site: right antecubital; jd3 20:45 Follow up: Response: No adverse reaction jd3 20:00 Drug: NS 0.9% 1000 ml Route: IV; Rate: 1000 ml; Site: right antecubital; jd3 21:30 Follow up: Response: No adverse reaction; IV Status: Completed infusion; IV Intake: jd3 1000ml 20:45 Drug: Valium 5 mg Route: PO; jd3 21:30 Follow up: Response: No adverse reaction jd3 Disposition: 07/25/18 21:20 Discharged to Home. Impression: Low back pain, Strain of muscle, fascia and tendon of lower back. - Condition is Stable. - Discharge Instructions: Back Pain, Adult, Muscle Strain, Musculoskeletal Pain. - Prescriptions for Valium 2 mg Oral Tablet - take 1 tablet by ORAL route every 8 hours As needed; 20 tablet. - Medication Reconciliation Form, Thank You Letter, Prescription Opioid Use form. - Follow up: Emergency Department; When: As needed; Reason: Worsening of condition. Follow up: Private Physician; When: 2 - 3 days; Reason: Recheck today's complaints, Continuance of care, Re-evaluation by your physician. - Problem is new. - Symptoms have improved. Addendum: 07/29/2018 21:46 Co-signature as Attending Physician, Jose Coe MD Available for consultation at p s1 all times. . Signatures: Dispatcher [employer] EDKY Alvin Easley, FRIEDA COMMUTER TRAIN OPERATOR pm1 Any Rodriguez RN RN tl2 Ernesto Carmen RN RN Jose Ibrahim MD MD ps1 Corrections: (The following items were deleted from the chart) 07/25 21:31 21:20 07/25/2018 21:20 Discharged to Home. Impression: Low back pain; Strain of muscle, jd3 fascia and tendon of lower back. Condition is Stable. Forms are Medication Reconciliation Form, Thank You Letter, Antibiotic Education, Prescription Opioid Use. Follow up: Emergency Department; When: As needed; Reason: Worsening of condition. Follow up: Private Physician; When: 2 - 3 days; Reason: Recheck today's complaints, Continuance of care, Re-evaluation by your physician. Problem is new. Symptoms have improved. pm1
[2018-07-25 21:45] VITALS: TEMP 99.4
[2018-07-25 21:48] VITALS: BP 127/65; O2SAT 100
== END 2018-07-25 21:31 | disposition home or self-care (01) ==
LOC: ER 19:19
DX: S39.012A Strain of muscle, fascia and tendon of lower back, initial encounter (principal); X50.0XXA Overexertion from strenuous movement or load, initial encounter; Y93.89 Activity, other specified; Y92.9 Unspecified place or not applicable; I10 Essential (primary) hypertension
CPT/HCPCS: 36415; 74176; 76377; 80048; 80076; 81003; 81015; 83690; 85025; 96361; 96374; 99284; J7030

== ENCOUNTER 2018-11-30 10:21 | Emergency (ER) | payer OTHER ==
--- OUTSIDE RECORDS SUMMARY | 2018-11-30 10:24 | XMS REPORT ---
:1955 Author Organization [facility] Address [address] [place] [address] Care Team Providers Name Role Phone Unavailable Unavailable Unavailable Problems This patient has no known problems. Allergies, Adverse Reactions, Alerts This patient has no known allergies or adverse reactions. Medications This patient has no known medications.
[2018-11-30] MEDS ORDERED: MEPERIDINE HCL 50 MG/ML AMP ONE (12:16)
[2018-11-30] MEDS ORDERED: PROMETHAZINE 25 MG/ML VIAL ONE (12:17)
--- NOTE | 2018-11-30 12:41 | ER ---
Nurse's Notes [facility] Name: Jahaira Coe Age: 63 yrs Sex: Female : 1955 Arrival Date: 11/30/2018 Time: 10:25 Bed 7 Private MD: Unknown, Unknown Diagnosis: Low back pain Presentation: 11/30 10:33 Presenting complaint: Patient states: L flank/ low back pain that began last night. Is ss sharp. Denies nausea and/or injury. Transition of care: patient was not received from another setting of care. Onset of symptoms was November 29, 2018. Risk Assessment: Do you want to hurt yourself or someone else? Patient reports no desire to harm self or others. Initial Sepsis Screen: Does the patient meet any 2 criteria? No. Patient's initial sepsis screen is negative. Does the patient have a suspected source of infection? No. Patient's initial sepsis screen is negative. Care prior to arrival: None. 10:33 Method Of Arrival: Wheelchair ss 10:33 Acuity: LUIIG 3 ss Triage Assessment: 11:38 General: Appears in no apparent distress. Behavior is calm, cooperative, appropriate tw2 for age. Pain: Complains of pain in left low back and left mid back. Historical: - Allergies: 10:35 No Known Allergies; ss - Home Meds: 10:35 losartan 25 mg Oral tab once daily [Active]; metformin 500 mg Oral tab PRN [Active]; ss - PMHx: 10:35 "borderline diabetic"; herniated discs; Hypertension; ss - PSHx: 10:35 Hysterectomy; ss - Immunization history:: Adult Immunizations up to date. - Social history:: Smoking status: Patient/guardian denies using tobacco. - Ebola Screening: : Patient denies exposure to infectious person Patient denies travel to an Ebola-affected area in the 21 days before illness onset. - Family history:: not pertinent. Screenin:36 Abuse screen: Denies threats or abuse. Nutritional screening: No deficits noted. tw2 Tuberculosis screening: No symptoms or risk factors identified. Fall Risk Secondary diagnosis (15 points) impaired mobility. Assessment: 11:30 General: Appears in no apparent distress. well groomed, Behavior is calm, cooperative, tw2 appropriate for age. Pain: Complains of pain in left mid back and left low back Pain does not radiate. Neuro: Level of Consciousness is awake, alert, obeys commands, Oriented to person, place, time, situation. Cardiovascular: Capillary refill Patient's skin is warm and dry. Respiratory: Airway is patent Respiratory effort is even, unlabored, Respiratory pattern is regular, symmetrical, Breath sounds are clear bilaterally. GI: No signs and/or symptoms were reported involving the gastrointestinal system. Abdomen is round non-distended, Bowel sounds present X 4 quads. : No signs and/or symptoms were reported regarding the genitourinary system. EENT: No signs and/or symptoms were reported regarding the EENT system. Derm: No signs and/or symptoms reported regarding the dermatologic system. Musculoskeletal: Circulation, motion, and sensation intact. Range of motion: intact in all extremities. 12:53 Reassessment: Patient appears in no apparent distress at this time. No changes from tw2 previously documented assessment. Patient and/or family updated on plan of care and expected duration. Pain level reassessed. Patient is alert, oriented x 3, equal unlabored respirations, skin warm/dry/pink. Vital Signs: 10:35 BP 118 / 67; Pulse 83; Resp 16; Temp 98.6(TE); Pulse Ox 100% on R/A; Weight 82.55 kg; ss Height 5 ft. 4 in. (162.56 cm); Pain 8/10; 12:45 BP 112 / 71; Pulse 80; Resp 16; Pulse Ox 99% ; sv 10:35 Body Mass Index 31.24 (82.55 kg, 162.56 cm) ED Course: 10:25 Patient arrived in ED. ag5 10:25 Unknown, Unknown is Private Physician. ag5 10:34 Triage completed. ss 10:35 Arm band placed on right wrist. ss 11:29 Bed in low position. Call light in reach. Side rails up X2. residential monitor on. Pulse tw2 ox on. NIBP on. 11:35 Angelica Garcia RN is Primary Nurse. tw2 11:45 Jaren Knight MD is Attending Physician. [facility] 12:53 No provider procedures requiring assistance completed. Patient did not have IV access tw2 during this emergency room visit. Administered Medications: 12:08 Drug: Phenergan 12.5 mg Route: IM; Site: left gluteus; tw2 12:53 Follow up: Response: No adverse reaction sv 12:10 Drug: Demerol 50 mg Route: IM; Site: left gluteus; tw2 12:53 Follow up: Response: No adverse reaction sv Outcome: 12:41 Discharge ordered by . brigitte 12:53 Patient left the ED. 12:53 Discharged to home via wheelchair, with family. sv 12:53 Condition: stable 12:53 Condition: improved 12:53 Discharge instructions given to patient, Instructed on discharge instructions, follow up and referral plans. no drinking with medication, no driving heavy equipment, medication usage, Demonstrated understanding of instructions, follow-up care, medications, Prescriptions given X 3. Signatures: Ludy Caban RN RN Jaren Valdez MD MD cha Smirch, Shelby, RN RN ss Wise, Tara, RN RN tw2 Lex Schmitz ag5 Corrections: (The following items were deleted from the chart) 19:05 11:00 Inserted saline lock: 20 gauge in right antecubital area, using aseptic tw2 technique. Blood collected. tw2
--- NOTE | 2018-11-30 12:42 | EDPHYS ---
Physician Documentation [facility] Name: Jahaira Coe Age: 63 yrs Sex: Female : 1955 Arrival Date: 11/30/2018 Time: 10:25 Bed 7 Private MD: Unknown, Unknown ED Physician Jaren Knight HPI: 11/30 12:18 This 63 yrs old Black Female presents to ER via Wheelchair with complaints of LEFT SIDE brigitte PAIN. 12:18 The patient presents with pain that is acute. The symptoms are located in the low back. brigitte Onset: The symptoms/episode began/occurred 1 day(s) ago. The pain does not radiate. Associated signs and symptoms: The patient has no apparent associated signs or symptoms. Modifying factors: The patient symptoms are alleviated by remaining still, the patient symptoms are aggravated by lifting, movement. Severity of symptoms: At their worst the symptoms were moderate, in the emergency department the symptoms are unchanged. The patient has not experienced similar symptoms in the past. Historical: - Allergies: 10:35 No Known Allergies; ss - Home Meds: 10:35 losartan 25 mg Oral tab once daily [Active]; metformin 500 mg Oral tab PRN [Active]; ss - PMHx: 10:35 "borderline diabetic"; herniated discs; Hypertension; ss - PSHx: 10:35 Hysterectomy; ss - Immunization history:: Adult Immunizations up to date. - Social history:: Smoking status: Patient/guardian denies using tobacco. - Ebola Screening: : Patient denies exposure to infectious person Patient denies travel to an Ebola-affected area in the 21 days before illness onset. - Family history:: not pertinent. ROS: 12:18 Constitutional: Negative for fever, chills, and weight loss, Eyes: Negative for injury, brigitte pain, redness, and discharge, ENT: Negative for injury, pain, and discharge, Neck: Negative for injury, pain, and swelling, Cardiovascular: Negative for chest pain, palpitations, and edema, Respiratory: Negative for shortness of breath, cough, wheezing, and pleuritic chest pain, Abdomen/GI: Negative for abdominal pain, nausea, vomiting, diarrhea, and constipation, : Negative for injury, bleeding, discharge, and swelling, MS/Extremity: Negative for injury and deformity, Skin: Negative for injury, rash, and discoloration, Neuro: Negative for headache, weakness, numbness, tingling, and seizure, Psych: Negative for depression, anxiety, suicide ideation, homicidal ideation, and hallucinations, Allergy/Immunology: Negative for hives, rash, and allergies, Endocrine: Negative for neck swelling, polydipsia, polyuria, polyphagia, and marked weight changes, Hematologic/Lymphatic: Negative for swollen nodes, abnormal bleeding, and unusual bruising. 12:18 Back: Positive for pain at rest, pain with movement, of the lumbar area, left low back and right low back. Exam: 12:18 Constitutional: This is a well developed, well nourished patient who is awake, alert, brigitte and in no acute distress. Head/Face: Normocephalic, atraumatic. Eyes: Pupils equal round and reactive to light, extra-ocular motions intact. Lids and lashes normal. Conjunctiva and sclera are non-icteric and not injected. Cornea within normal limits. Periorbital areas with no swelling, redness, or edema. ENT: Nares patent. No nasal discharge, no septal abnormalities noted. Tympanic membranes are normal and external auditory canals are clear. Oropharynx with no redness, swelling, or masses, exudates, or evidence of obstruction, uvula midline. Mucous membranes moist. Neck: Trachea midline, no thyromegaly or masses palpated, and no cervical lymphadenopathy. Supple, full range of motion without nuchal rigidity, or vertebral point tenderness. No Meningismus. Chest/axilla: Normal chest wall appearance and motion. Nontender with no deformity. No lesions are appreciated. Cardiovascular: Regular rate and rhythm with a normal S1 and S2. No gallops, murmurs, or rubs. Normal PMI, no JVD. No pulse deficits. Respiratory: Lungs have equal breath sounds bilaterally, clear to auscultation and percussion. No rales, rhonchi or wheezes noted. No increased work of breathing, no retractions or nasal flaring. Abdomen/GI: Soft, non-tender, with normal bowel sounds. No distension or tympany. No guarding or rebound. No evidence of tenderness throughout. Female : Normal external genitalia. Skin: Warm, dry with normal turgor. Normal color with no rashes, no lesions, and no evidence of cellulitis. MS/ Extremity: Pulses equal, no cyanosis. Neurovascular intact. Full, normal range of motion. Neuro: Awake and alert, GCS 15, oriented to person, place, time, and situation. Cranial nerves II-XII grossly intact. Motor strength 5/5 in all extremities. Sensory grossly intact. Cerebellar exam normal. Normal gait. Psych: Awake, alert, with orientation to person, place and time. Behavior, mood, and affect are within normal limits. 12:18 Back: pain, that is moderate, ROM is painful, normal spinal alignment noted, CVA tenderness, is absent, vertebral tenderness, is not appreciated. Vital Signs: 10:35 BP 118 / 67; Pulse 83; Resp 16; Temp 98.6(TE); Pulse Ox 100% on R/A; Weight 82.55 kg; ss Height 5 ft. 4 in. (162.56 cm); Pain 8/10; 12:45 BP 112 / 71; Pulse 80; Resp 16; Pulse Ox 99% ; sv 10:35 Body Mass Index 31.24 (82.55 kg, 162.56 cm) MDM: 11:45 Patient medically screened. [facility] 12:21 Data reviewed: vital signs, nurses notes, lab test result(s). [facility] 11/30 12:50 Order name: Urine Dipstick--Ancillary (enter results) [facility] 11/30 12:18 Order name: Urine Dipstick-Ancillary (obtain specimen); Complete Time: 12:24 [facility] Administered Medications: 12:08 Drug: Phenergan 12.5 mg Route: IM; Site: left gluteus; tw2 12:53 Follow up: Response: No adverse reaction 12:10 Drug: Demerol 50 mg Route: IM; Site: left gluteus; tw2 12:53 Follow up: Response: No adverse reaction sv Disposition: 11/30/18 12:41 Discharged to Home. Impression: Low back pain. - Condition is Stable. - Discharge Instructions: Back Pain, Adult, Chronic Back Pain, Musculoskeletal Pain, Back Injury Prevention, [id number], Back Pain, Adult, [id number], Back Exercises, [id number]. - Prescriptions for Skelaxin 800 mg Oral Tablet - take 1 tablet by ORAL route every 6 hours As needed; 40 tablet. Tylenol- Codeine #3 300-30 mg Oral Tablet - take 2 tablet by ORAL route every 6 hours As needed; 30 tablet. Motrin IB 200 mg Oral Tablet - take 2 tablet by ORAL route every 6 hours As needed as needed with food; 30 tablet. - Medication Reconciliation Form, Thank You Letter, Antibiotic Education, Prescription Opioid Use, Work release form form. - Follow up: Private Physician; When: 2 - 3 days; Reason: Recheck today's complaints, Continuance of care, Re-evaluation by your physician. - Problem is new. - Symptoms have improved. Signatures: Dispatcher [employer] EDID Jaren Knight MD MD cha Williams, Irene, RN RANDAL Rhonda Guzman RN RN ss Angelica Garcia RN RN tw2 Ludy Caban RN sv Corrections: (The following items were deleted from the chart) 12:53 12:41 11/30/2018 12:41 Discharged to Home. Impression: Low back pain. Condition is ss Stable. Forms are Medication Reconciliation Form, Thank You Letter, Antibiotic Education, Prescription Opioid Use. Follow up: Private Physician; When: 2 - 3 days; Reason: Recheck today's complaints, Continuance of care, Re-evaluation by your physician. Problem is new. Symptoms have improved. brigitte
[2018-11-30 13:02] VITALS: BP 118/67; TEMP 98.6; O2SAT 100
[2018-11-30 13:07] LABS: Urine Blood NEGATIVE (NEG); Urine Glucose NEGATIVE (NEG); Urine Protein NEGATIVE (NEG); Urine Specific Gravity 1.025 (1.005-1.030)
== END 2018-11-30 12:53 | disposition home or self-care (01) ==
LOC: ER 10:21
DX: M54.5 Low back pain (principal); I10 Essential (primary) hypertension; R73.03 Prediabetes; Z79.84 Long term (current) use of oral hypoglycemic drugs
CPT/HCPCS: 81003; 96372; 99284; J2175; J2550

== ENCOUNTER 2021-03-14 18:12 | Emergency (ER) | payer OTHER ==
--- OUTSIDE RECORDS SUMMARY | 2021-03-14 18:15 | XMS REPORT | Continuity of Care Document ---
:1955 Author Organization [facility] t Address [address] [place] [address] Care Team Providers Name Role Phone Unavailable Unavailable Unavailable Problems This patient has no known problems. Allergies, Adverse Reactions, Alerts This patient has no known allergies or adverse reactions. Medications This patient has no known medications. Procedures This patient has no known procedures. Results This patient has no known results.
[2021-03-14 19:00] LABS: Urine Blood Negative (Negative); Urine Glucose Negative (Negative); Urine Protein Trace (Negative); Urine Specific Gravity 1.015 (1.005-1.030); Urine pH 8.5 (5.0-7.0)
[2021-03-14 19:19] LABS: Absolute Lymphocytes (CBC) 5.6 K/uL (0.7-4.9); Basophils % 0.2 % (0-1.3); Hematocrit 37.9 % (36.0-45.0); Lymphocytes % 35.9 % (15.3-44.8); MPV 8.5 fL (7.6-11.3); RBC Red Blood Cell Count 4.16 M/uL (3.86-4.86)
[2021-03-14 19:28] LABS: Urine Bacteria <20 /HPF (<20); Urine RBC <5 /HPF (NONE SEEN)
[2021-03-14 19:37] LABS: ALT/SGPT 18 U/L (12-78); AST/SGOT 14 U/L (15-37); Albumin 3.6 g/dL (3.4-5.0); Alkaline Phosphatase 61 U/L (45-117); BUN Blood Urea Nitrogen 10 mg/dL (7-18); Bicarbonate 30 mmol/L (21-32); Bilirubin Direct < 0.1 mg/dL (0-0.2); Bilirubin Total 0.2 mg/dL (0.2-1.0); Glucose Level 100 mg/dL (74-106); Lipase 72 U/L (73-393); Potassium 3.3 mmol/L (3.5-5.1); Sodium Level 139 mmol/L (136-145)
[2021-03-14] MEDS ORDERED: PROMETHAZINE INJ 25 MG/ML AMP ONE (19:40)
[2021-03-14] MEDS ORDERED: MEPERIDINE HCL 25 MG/ML SYR ONE (19:40)
[2021-03-14] MEDS ORDERED: NA CHLORIDE 0.9% 1,000 ML ONE (19:41)
--- NOTE | 2021-03-14 20:34 | RAD REPORT ---
EXAM DESCRIPTION: CTAbdomen Pelvis W Contrast - 03/14/2021 8:18 pm CLINICAL HISTORY: Abdominal pain. ABD PAIN COMPARISON: Abdomen Pelvis W Contrast dated 06/09/2018 TECHNIQUE: Biphasic CT imaging of the abdomen and pelvis was performed with 100 ml non-ionic IV cont rast. All CT scans are performed using dose optimization technique as appropriate and may include automated exposure control or mA/KV adjustment according to patient size. FINDINGS: The lung bases are clear. Benign-appearing low-density lesion right hepatic lobe. Bilateral low density renal lesions which are likely cysts. Mild colonic wall thickening primarily involving the ascending and transverse colon. The sigmoid and rectum or to a lesser extent affected. The appendix is normal. No evidence of significant lymphaden opathy. Fat containing right inguinal hernia. Small fat filled umbilical hernia. No suspicious bony findings. Multilevel degenerative disc disease. IMPRESSION: Findings consistent with a colitis with differential to include infectious, inflammatory , and less likely ischemic etiologies.
--- NOTE | 2021-03-14 20:38 | ER ---
Nurse's Notes [facility] Name: Jahaira Coe Age: 65 yrs Sex: Female : 1955 Arrival Date: 03/14/2021 Time: 18:18 Bed 2 Private MD: Diagnosis: Colitis Presentation: 03/14 18:19 Chief complaint: EMS states: Sudden onset severe lower abdominal pain. EKG WNL, BGL hb 140. Coronavirus screen: At this time, the client does not indicate any symptoms associated with coronavirus-19. Ebola Screen: No symptoms or risks identified at this time. Initial Sepsis Screen: Does the patient meet any 2 criteria? No. Patient's initial sepsis screen is negative. Does the patient have a suspected source of infection? No. Patient's initial sepsis screen is negative. Risk Assessment: Do you want to hurt yourself or someone else? Patient reports no desire to harm self or others. Onset of symptoms was March 14, 2021. 18:19 Method Of Arrival: EMS: [facility] 18:19 Acuity: LUIGI 3 hb Triage Assessment: 18:20 General: Appears in no apparent distress. uncomfortable, Behavior is calm, cooperative. hb Pain: Pain currently is 7 out of 10 on a pain scale. EENT: No signs and/or symptoms were reported regarding the EENT system. Neuro: Level of Consciousness is awake, alert, obeys commands, Oriented to person, place, time, situation. Cardiovascular: Patient's skin is warm and dry. Respiratory: Respiratory effort is even, unlabored, Respiratory pattern is regular, symmetrical. GI: Reports lower abdominal pain. : No signs and/or symptoms were reported regarding the genitourinary system. Derm: Skin is pink, warm \\T\\ dry. Musculoskeletal: No signs and/or symptoms reported regarding the musculoskeletal system. Historical: - Allergies: 18:20 No Known Drug Allergies; hb - Home Meds: 18:20 losartan 25 mg Oral tab once daily [Active]; metformin 500 mg Oral tab PRN [Active]; hb - PMHx: 18:20 "borderline diabetic"; herniated discs; Hypertension; hb - Immunization history:: Adult Immunizations up to date. - Social history:: Smoking status: Patient denies any tobacco usage or history of. Screenin:22 Abuse screen: Denies threats or abuse. Denies injuries from another. Nutritional hb screening: No deficits noted. Tuberculosis screening: No symptoms or risk factors identified. Fall Risk None identified. Assessment: 18:22 General: see triage . hb 19:30 Reassessment: Patient appears in no apparent distress at this time. Patient and/or ad5 family updated on plan of care and expected duration. Pain level reassessed. Patient is alert, oriented x 3, equal unlabored respirations, skin warm/dry/pink. Pt resting comfortably in stretcher, resp even/unlabored. Denies needs at this time. Bed low and locked, bedrails x 2, call light within reach. Will continue to monitor. 20:56 Reassessment: Patient and/or family updated on plan of care and expected duration. Pain ea level reassessed. Patient is alert, oriented x 3, equal unlabored respirations, skin warm/dry/pink. Vital Signs: 18:19 BP 121 / 84; Pulse 64; Resp 16; Temp 97.8; Pulse Ox 100% on R/A; Pain 7/10; hb 19:31 BP 114 / 76; Pulse 80; Resp 16 S; Pulse Ox 99% ; ad5 20:56 BP 127 / 61; Pulse 78; Resp 16; Pulse Ox 99% ; ea ED Course: 18:18 Patient arrived in ED. hb 18:20 Triage completed. hb 18:20 Arm band placed on. hb 18:22 Patient has correct armband on for positive identification. Bed in low position. Call hb light in reach. 18:25 Jessy Bruno RN is Primary Nurse. hb 18:37 Marilou Red FNP-C is PHCP. kb 18:37 Adi Philip MD is Attending Physician. kb 19:00 Inserted saline lock: 22 gauge in right antecubital area, using aseptic technique. hb Blood collected. 20:17 CT Abd/Pelvis - IV Contrast Only In Process Unspecified. EDMS 20:56 No provider procedures requiring assistance completed. IV discontinued, intact, ea bleeding controlled, No redness/swelling at site. Pressure dressing applied. Administered Medications: 19:22 Drug: NS 0.9% 1000 ml Route: IV; Rate: 1000 ml; Site: right antecubital; hb 20:57 Follow up: Response: No adverse reaction; IV Status: Completed infusion; IV Intake: ea 1000ml 19:22 Drug: Demerol (meperidine) 12.5 mg Route: IVP; Site: right antecubital; hb 20:54 Follow up: Response: No adverse reaction ea 19:22 Drug: Phenergan (promethazine) 6.25 mg Route: IVP; Site: right antecubital; hb 20:57 Follow up: Response: No adverse reaction ea 20:54 Drug: Potassium Chloride 20 mEq Route: PO; ea 20:57 Follow up: Response: Medication administered at discharge. ea 20:54 Drug: Flagyl (metroNIDAZOLE) 500 mg Route: PO; ea 20:58 Follow up: Response: Medication administered at discharge. ea 20:54 Drug: Cipro (ciprofloxacin) 500 mg Route: PO; ea 20:58 Follow up: Response: Medication administered at discharge. ea Intake: 20:57 IV: 1000ml; Total: 1000ml. ea Outcome: 20:38 Discharge ordered by . kb 20:56 Discharged to home via wheelchair, with family. ea 20:56 Condition: stable 20:56 Discharge instructions given to patient, Instructed on discharge instructions, follow up and referral plans. medication usage, Demonstrated understanding of instructions, follow-up care, medications, Prescriptions given X 3. 20:57 Patient left the ED. ea Signatures: Dispatcher [employer] Marilou Vargas, COLLEEN-C COLLEEN-Jessy Mabry, RN RN Tamiko Craft RN RN Сергей De La O
--- NOTE | 2021-03-14 20:38 | EDPHYS ---
Physician Documentation [facility] Name: Jahaira Coe Age: 65 yrs Sex: Female : 1955 Arrival Date: 03/14/2021 Time: 18:18 Bed 2 Private MD: ED Physician Adi Philip HPI: 03/14 21:35 This 65 yrs old Black Female presents to ER via EMS with complaints of Abdominal Pain. kb 21:35 The patient presents with abdominal pain in the lower abdomen. Onset: The kb symptoms/episode began/occurred just prior to arrival. The symptoms do not radiate. Associated signs and symptoms: Pertinent positives: diarrhea, nausea, Pertinent negatives: fever. The symptoms are described as constant, crampy. Modifying factors: The symptoms are alleviated by nothing, the symptoms are aggravated by nothing. Severity of pain: At its worst the pain was moderate in the emergency department the pain is unchanged. The patient has not experienced similar symptoms in the past. The patient has not recently seen a physician. Patient reports lower abdominal pain that started while pumping gas just prior to arrival. Now reports slight nausea and diarrhea. Historical: - Allergies: 18:20 No Known Drug Allergies; hb - Home Meds: 18:20 losartan 25 mg Oral tab once daily [Active]; metformin 500 mg Oral tab PRN [Active]; hb - PMHx: 18:20 "borderline diabetic"; herniated discs; Hypertension; hb - Immunization history:: Adult Immunizations up to date. - Social history:: Smoking status: Patient denies any tobacco usage or history of. ROS: 21:36 Constitutional: Negative for fever, chills, and weight loss. kb 21:36 Abdomen/GI: Positive for abdominal pain, nausea, diarrhea, Negative for vomiting. 21:36 All other systems are negative. Exam: 21:36 Constitutional: This is a well developed, well nourished patient who is awake, alert, kb and in no acute distress. Head/Face: Normocephalic, atraumatic. ENT: Moist Mucous membranes Cardiovascular: Regular rate and rhythm with a normal S1 and S2. No gallops, murmurs, or rubs. No pulse deficits. Respiratory: Respirations even and unlabored. No increased work of breathing, no retractions or nasal flaring. Abdomen/GI: Soft, non-tender. No distention Skin: Warm, dry with normal turgor. Normal color. MS/ Extremity: Pulses equal, no cyanosis. Neurovascular intact. Full, normal range of motion. Neuro: Awake and alert, GCS 15, oriented to person, place, time, and situation. Moves all extremities. Normal gait. Psych: Awake, alert, with orientation to person, place and time. Behavior, mood, and affect are within normal limits. Vital Signs: 18:19 BP 121 / 84; Pulse 64; Resp 16; Temp 97.8; Pulse Ox 100% on R/A; Pain 7/10; hb 19:31 BP 114 / 76; Pulse 80; Resp 16 S; Pulse Ox 99% ; ad5 20:56 BP 127 / 61; Pulse 78; Resp 16; Pulse Ox 99% ; ea MDM: 18:37 Patient medically screened. kb 21:35 Data reviewed: vital signs, nurses notes. Data interpreted: Pulse oximetry: on room air kb is 99 %. Interpretation: normal. Counseling: I had a detailed discussion with the patient and/or guardian regarding: the historical points, exam findings, and any diagnostic results supporting the discharge/admit diagnosis, lab results, radiology results, the need for outpatient follow up, a family practitioner, to return to the emergency department if symptoms worsen or persist or if there are any questions or concerns that arise at home. 21:36 ED course: No abdominal tenderness upon exam. lei 03/14 18:33 Order name: Basic Metabolic Panel; Complete Time: 19:37 rn 03/14 18:33 Order name: CBC with Diff; Complete Time: 19:29 rn 03/14 18:33 Order name: Hepatic Function; Complete Time: 19:37 rn 03/14 18:33 Order name: Lipase; Complete Time: 19:37 rn 03/14 18:33 Order name: Urine Microscopic Only; Complete Time: 19:29 rn 03/14 19:00 Order name: Urine Dipstick-Ancillary; Complete Time: 19:05 EDDE 03/14 18:33 Order name: IV Saline Lock; Complete Time: 19:00 rn 03/14 18:33 Order name: CT Abd/Pelvis - IV Contrast Only; Complete Time: 20:34 rn 03/14 18:33 Order name: Labs collected and sent; Complete Time: 19:00 rn 03/14 18:33 Order name: Urine Dipstick-Ancillary (obtain specimen); Complete Time: 19:00 rn Administered Medications: 19:22 Drug: NS 0.9% 1000 ml Route: IV; Rate: 1000 ml; Site: right antecubital; hb 20:57 Follow up: Response: No adverse reaction; IV Status: Completed infusion; IV Intake: ea 1000ml 19:22 Drug: Demerol (meperidine) 12.5 mg Route: IVP; Site: right antecubital; hb 20:54 Follow up: Response: No adverse reaction ea 19:22 Drug: Phenergan (promethazine) 6.25 mg Route: IVP; Site: right antecubital; hb 20:57 Follow up: Response: No adverse reaction ea 20:54 Drug: Potassium Chloride 20 mEq Route: PO; ea 20:57 Follow up: Response: Medication administered at discharge. ea 20:54 Drug: Flagyl (metroNIDAZOLE) 500 mg Route: PO; ea 20:58 Follow up: Response: Medication administered at discharge. ea 20:54 Drug: Cipro (ciprofloxacin) 500 mg Route: PO; ea 20:58 Follow up: Response: Medication administered at discharge. ea Disposition Summary: 03/14/21 20:38 Discharge Ordered Location: Home kb Condition: Stable kb Diagnosis - Colitis kb Followup: kb - With: Emergency Department - When: As needed - Reason: Worsening of condition Followup: kb - With: Private Physician - When: 2 - 3 days - Reason: Recheck today's complaints, Continuance of care, Re-evaluation by your physician Discharge Instructions: - Discharge Summary Sheet kb - Colitis kb Forms: - Medication Reconciliation Form kb - Thank You Letter kb - Antibiotic Education kb - Prescription Opioid Use kb Prescriptions: - Cipro 500 mg Oral Tablet - take 1 tablet by ORAL route every 12 hours for 10 days; 20 tablet; Refills: 0, kb Product Selection Permitted - Flagyl 500 mg Oral Tablet - take 1 tablet by ORAL route every 8 hours for 10 days; 30 tablet; Refills: 0, kb Product Selection Permitted - Zofran 4 mg Oral Tablet - take 1 tablet by ORAL route every 6 hours As needed; 20 tablet; Refills: 0, kb Product Selection Permitted - dicyclomine 20 mg Oral Tablet - take 1 tablet by ORAL route 4 times per day As needed; 20 tablet; Refills: 0, kb Product Selection Permitted Addendum: 03/17/2021 07:03 Co-signature as Attending Physician, Adi Philip MD. r n Signatures: Dispatcher [employer] Marilou Vargas, ORDER PROCESSING SPECIALIST-C ORDER PROCESSING SPECIALIST-Juintob Adi Philip MD MD rn Baxter, Heather, RN RN Tamiko Craft RN RN selene
[2021-03-14] MEDS ORDERED: metroNIDAZOLE 500 MG TABLET ONE (21:08)
[2021-03-14] MEDS ORDERED: POTASSIUM CL SA 10 MEQ TAB PO ONE (21:08)
[2021-03-14] MEDS ORDERED: CIPROFLOXACIN HCL 500 MG TAB ONE (21:08)
[2021-03-15 15:44] VITALS: TEMP 97.8
[2021-03-15 15:46] VITALS: O2SAT 99
[2021-03-15 15:47] VITALS: BP 127/61
== END 2021-03-14 20:57 | disposition home or self-care (01) ==
LOC: ER 18:12
DX: K52.9 Noninfective gastroenteritis and colitis, unspecified (principal); I10 Essential (primary) hypertension
CPT/HCPCS: 96361; 85025; 80048; 36415; 80076; 83690; 74177; 96375; 96374; 99284; Q9967; J2550; J2175; J7030; 81003; 81015

== ENCOUNTER 2021-07-08 16:57 | Emergency (ER) | payer OTHER, SELFPAY ==
--- OUTSIDE RECORDS SUMMARY | 2021-07-08 17:01 | XMS REPORT | Continuity of Care Document ---
:1955 Author Organization [facility] Address [address] [place] [address] Care Team Providers Name Role Phone Sienna_Morgan Attending Clinician Unavailable Kevin ALSTON Attending Clinician Unavailable Sienna_Morgan Admitting Clinician Unavailable Payers Payer Name Policy Type Policy Number Effective Date Expiration Date S ource Problems Condition Condition Condition Status Onset Resolution Last Treating Co mments Source Name Details Category Date Date Treatment Clinician Date Exposure Exposure Problem Active [facility] ge to to 8-20 Family SARS-CoV-2 SARS-CoV-2 00:00: Pr actic 00 e Diabetes Diabetes Problem Active [place] ge mellitus Mellitus 5-23 Family 00:00: Practic 00 e Hyperlipid Hyperlipid Problem Active [facility] emia emia 5-23 Family 00:00: Practic 00 e Essential Essential Problem Active Aishwarya maurice hypertensi Hypertensi 5-23 Fa ki on on 00:00: Practic 00 e Allergies, Adverse Reactions, Alerts Allergy Allergy Status Severity Reaction(s) Onset Inactive Treating Comm ents Source Name Type Date Date Clinician NO KNOWN Drug Active [facility] ALLERGIE Class [facility] of [facility] Tramadol Allergy Active [facility] Practic e e Social History Smoking Status Start Date Stop Date Source Never Smoker [facility] Medications Ordered Filled Start Stop Current Ordering Indication Dosage Frequency Signature Comments Components Source Medication Medication Date Date Medication? Clinician (SIG) Name Name atorvastati atorvastati No atorvastat [facility] n 10 mg n 10 mg in 10 mg Famil y tablet Take tablet Take tablet Practic 1 tablet 1 tablet Take 1 e every day every day tablet by oral by oral every day route at route at by oral bedtime bedtime route at bedtime cyclobenzap cyclobenzap No cyclobenza [facility] rine 10 mg rine 10 mg colin 10 Family tablet TAKE tablet TAKE mg tablet Practic 1 TABLET BY 1 TABLET BY TAKE 1 e MOUTH AT MOUTH AT TABLET BY BEDTIME BEDTIME MOUTH AT NEEDED NEEDED BEDTIME NEEDED diclofenac diclofenac No diclofenac [facility] sodium 50 sodium 50 sodium 50 Family mg mg mg Practic tablet,carol tablet,carol tablet,del e yed release yed release ayed Take 1 Take 1 release tablet tablet Take 1 every day every day tablet by oral by oral every day route with route with by oral meals for meals for route with 30 days. 30 days. meals for 30 days. dicyclomine dicyclomine No dicyclomin [facility] 20 mg 20 mg e 20 mg Family tablet TAKE tablet TAKE tablet Practic ONE (1) ONE (1) TAKE ONE e TABLET(S) TABLET(S) (1) BY MOUTH BY MOUTH TABLET(S) FOUR TIMES FOUR TIMES BY MOUTH A DAY A DAY FOUR TIMES NEEDED. NEEDED. A DAY NEEDED. estradiol estradiol No estradiol [facility] 0.5 mg 0.5 mg 0.5 mg Family tablet TAKE tablet TAKE tablet Practic 1 TABLET BY 1 TABLET BY TAKE 1 e MOUTH ONCE MOUTH ONCE TABLET BY DAILY DAILY MOUTH ONCE DAILY hydrochloro hydrochloro No hydrochlor [facility] thiazide 25 thiazide 25 othiazide Family mg tablet mg tablet 25 mg Prac tic Take 1 Take 1 tablet e tablet by tablet by Take 1 mouth once mouth once tablet by daily daily mouth once daily losartan 25 losartan 25 No losartan [facility] mg tablet mg tablet 25 mg Fami ly TAKE 1 TAKE 1 tablet Practic TABLET BY TABLET BY TAKE 1 e MOUTH ONCE MOUTH ONCE TABLET BY DAILY DAILY MOUTH ONCE DAILY metformin metformin No metformin [facility] 500 mg 500 mg 500 mg Family tablet TAKE tablet TAKE tablet Practic 1 TABLET BY 1 TABLET BY TAKE 1 e MOUTH TWICE MOUTH TWICE TABLET BY DAILY WITH DAILY WITH MOUTH MEALS MEALS TWICE DAILY WITH MEALS Neurontin Neurontin No Neurontin [facility] 300 mg 300 mg 300 mg Family capsule capsule capsule Practi c Take 1 Take 1 Take 1 e capsule capsule capsule twice a day twice a day twice a by oral by oral day by route for route for oral route 30 days. 30 days. for 30 days. Immunizations Ordered Immunization Filled Immunization Date Status Commen ts Source Name Name COVID-19 vaccine, COVID-19 vaccine, 2021-02-24 Completed [facility] Family vector-nr, vector-nr, 00:00:00 Practice rS-ChAdOx1, PF, 0.5 rS-ChAdOx1, PF, 0.5 mL mL Vital Signs Vital Name Observation Time Observation Value Comments Source BP Diastolic 2021-04-25 00:00:00 78 mm[Hg] [facility] Height 2021-04-25 00:00:00 64 [in_i] [facility] BMI (Body Mass 2021-04-25 00:00:00 32.2 kg/m2 [facility] Index) Practice BP Systolic 2021-04-25 00:00:00 115 mm[Hg] [facility] Body Weight 2021-04-25 00:00:00 187.4 [lb_av] [facility] Procedures Procedure Date / Time Performed Performing Clinician Sourc e DEXA 2021-04-25 00:00:00 [facility] Plan of Care Planned Activity Planned Date Details Comments Source Diagnostic Test 2021-04-25 HbA1c (hemoglobin [facility] Pending 00:00:00 A1c), blood [code = Practice HbA1c (hemoglobin A1c), blood] Diagnostic Test 2021-04-25 microalbumin/creatini Aishwarya [facility] Pending 00:00:00 ne, mass ratio, urine Practi ce [code = microalbumin/creatini ne, mass ratio, urine] Diagnostic Test 2021-04-25 CMP, serum or plasma [facility] Pending 00:00:00 [code = CMP, serum or Practi ce plasma] Diagnostic Test 2021-04-25 urinalysis complete, [facility] Pending 00:00:00 reflex culture [code Practic e = urinalysis complete, reflex culture] Diagnostic Test 2021-04-25 lipid panel, serum [facility] Pending 00:00:00 [code = lipid panel, Practic e serum] Diagnostic Test 2021-04-25 CBC w/ auto diff [facility] Pending 00:00:00 [code = CBC w/ auto Practice diff] Diagnostic Test 2021-04-25 TSH, serum or plasma [facility] Pending 00:00:00 [code = TSH, serum or Practi ce plasma] Diagnostic Test 2021-04-25 pathology review, [facility] Pending 00:00:00 smear [code = Practice pathology review, smear] Diagnostic Test 2021-04-25 vitamin D, [facility] Pending 00:00:00 25-hydroxy, total, Practice serum [code = vitamin D, 25-hydroxy, total, serum] Diagnostic Test 2021-04-25 noninvasive [facility] Pending 00:00:00 colorectal cancer DNA Practi ce + occult blood screening, stool [code = noninvasive colorectal cancer DNA + occult blood screening, stool] Encounters Start End Encounter Admission Attending Care Care Encounter Source Date/Time Date/Time Type Type Clinicians Facility Department ID 2021-07-08 Outpatient Kethineni_N VFP VFP [id number] 03-06 [facility] 05:42:18 [id number] Family Practic e 2021-07-07 Outpatient Kethineni_N VFP VFP [id number] 03-06 [facility] 17:37:49 [id number] Family Practic e 2021-07-07 Outpatient Kethineni_N VFP VFP [id number] 03-06 [facility] 17:09:10 [id number] Family Practic e 2021-07-07 Outpatient Kethineni_N VFP VFP [id number] 03-06 [facility] 15:37:19 [id number] Family Practic e 2021-07-07 Outpatient Kethineni_N VFP VFP [id number] 03-06 [facility] 12:53:46 [id number] Family Practic e 2021-04-25 2021-04-25 Edilma N VFP [place] - [id number] [facility] 00:00:00 00:00:00 TEJA Lynn: [facility] [id number] Medical - Practi c Shadow VM_CAMACHOU_Florentino e [place] [facility], [address], [place] [address] , Ph. 2018-08-01 2018-08-01 Emergency X [facility] ERT [id number] [facility] 13:07:28 16:10:00 ROMULO carson [facility] Results This patient has no known results.
[2021-07-08 17:52] LABS: Absolute Lymphocytes (CBC) 4.2 K/uL (0.7-4.9); Basophils % 1.1 % (0-1.3); Hematocrit 37.1 % (36.0-45.0); Lymphocytes % 27.7 % (15.3-44.8); MPV 8.9 fL (7.6-11.3)
[2021-07-08 17:57] LABS: Protime INR 0.91
[2021-07-08 18:04] LABS: ALT/SGPT 20 U/L (12-78); AST/SGOT 13 U/L (15-37); Albumin 3.5 g/dL (3.4-5.0); Alkaline Phosphatase 75 U/L (45-117); BUN Blood Urea Nitrogen 13 mg/dL (7-18); Bicarbonate 28 mmol/L (21-32); Bilirubin Direct < 0.1 mg/dL (0-0.2); Bilirubin Total 0.2 mg/dL (0.2-1.0); Glucose Level 131 mg/dL (74-106); Magnesium 1.8 mg/dL (1.8-2.4); NT PRO-BNP 24 pg/mL (<125); Potassium 3.3 mmol/L (3.5-5.1); Sodium Level 141 mmol/L (136-145); Troponin (Emerg Dept Use Only) < 0.02 ng/mL (0.0-0.045)
--- NOTE | 2021-07-08 18:26 | RAD REPORT ---
EXAM DESCRIPTION: RAD - Chest Single View - 07/08/2021 5:47 pm CLINICAL HISTORY: CHEST PAIN COMPARISON: Portable March 2013 TECHNIQUE: AP portable chest image was obtained 07/08/2021 5:47 pm . FINDINGS: Lungs are clear. Heart and vasculature are normal. No measurable pleural effusion and no p neumothorax. No acute bony abnormality seen. No acute aortic findings suspected. IMPRESSION: No acute cardiopulmonary process.
--- NOTE | 2021-07-08 19:03 | EDPHYS ---
Physician Documentation [facility] Name: Jahaira Coe Age: 65 yrs Sex: Female : 1955 Arrival Date: 07/08/2021 Time: 17:00 Bed 5 Private MD: ED Physician Adi Philip HPI: 07/08 17:16 This 65 yrs old Black Female presents to ER via Ambulatory with complaints of Chest jmm Pain - Radiates to Shoulder Blade. 17:16 The patient or guardian reports chest pain that is located primarily in the substernal jmm area. Onset: gradually, 2 day(s) ago. The pain radiates to left back. Associated signs and symptoms: Pertinent negatives: abdominal pain, shortness of breath. The chest pain is described as aching. Duration: The patient or guardian reports multiple episodes, that are intermittent, that wax and wane, the episodes last approximately 5 minute(s). Modifying factors: The symptoms are alleviated by nothing. the symptoms are aggravated by nothing. Is a 65-year-old female with history of diabetes mellitus, hypertension the presents emerged department with complaints of substernal chest pain which is intermittent lasts approximately 5 minutes at a time and radiates to the left scapular region. Patient denies history of CAD. Does have some family history of CAD.. Historical: - Allergies: 17:10 No Known Allergies; vg1 - Home Meds: 17:10 losartan 25 mg Oral tab once daily [Active]; metformin 500 mg Oral tab PRN [Active]; vg1 - PMHx: 17:10 "borderline diabetic"; herniated discs; Hypertension; vg1 - PSHx: 17:10 section; Hysterectomy; vg1 - Immunization history:: Client reports receiving the 2nd dose of the Covid vaccine. - Social history:: Smoking status: Patient denies any tobacco usage or history of. ROS: 17:16 Constitutional: Negative for fever, chills, and weight loss. jmm 17:16 Respiratory: Negative for shortness of breath, cough, wheezing, and pleuritic chest pain, Abdomen/GI: Negative for abdominal pain, nausea, vomiting, diarrhea, and constipation. 17:16 Cardiovascular: Positive for chest pain. 17:16 All other systems are negative. Exam: 17:16 Constitutional: This is a well developed, well nourished patient who is awake, alert, jmm and in no acute distress. Head/Face: atraumatic. Eyes: EOMI, no conjunctival erythema appreciated ENT: Moist Mucus Membranes Neck: Trachea midline, Supple Chest/axilla: Normal chest wall appearance and motion. 17:16 Respiratory: Normal respirations, no respiratory distress appreciated Abdomen/GI: Non distended, soft Back: Normal ROM Skin: General appearance color normal MS/ Extremity: Moves all extremities, no obvious deformities appreciated, no edema noted to the lower extremities Neuro: Awake and alert, normal gait Psych: Behavior is normal, Mood is normal, Patient is cooperative and pleasant 17:16 Cardiovascular: Rate: normal, Rhythm: regular, Pulses: no pulse deficits are appreciated. Vital Signs: 17:09 BP 119 / 72; Pulse 99; Resp 16; Temp 98.1; Pulse Ox 100% ; Weight 82.55 kg; Height 5 vg1 ft. 4 in. (162.56 cm); Pain 5/10; 17:09 Body Mass Index 31.24 (82.55 kg, 162.56 cm) vg1 MDM: 17:46 Patient medically screened. [facility] 19:02 Data reviewed: vital signs, nurses notes. Counseling: I had a detailed discussion with [facility] the patient and/or guardian regarding: the historical points, exam findings, and any diagnostic results supporting the discharge/admit diagnosis, lab results, radiology results, the need for outpatient follow up, to return to the emergency department if symptoms worsen or persist or if there are any questions or concerns that arise at home. Refusal of service: The patient/guardian displays adequate decision making capability and despite a detailed discussion of alternatives, benefits, risks, and consequences refuses: Admission to the hospital for further work-up and treatment. 07/08 17:16 Order name: Basic Metabolic Panel; Complete Time: 18:51 [facility] 07/08 17:16 Order name: CBC with Diff; Complete Time: 18:51 [facility] 07/08 17:16 Order name: LFT's; Complete Time: 18:51 [facility] 07/08 17:16 Order name: Magnesium; Complete Time: 18:51 [facility] 07/08 17:16 Order name: NT PRO-BNP; Complete Time: 18:51 [facility] 07/08 17:16 Order name: PT-INR; Complete Time: 18:51 [facility] 07/08 17:16 Order name: Troponin (emerg Dept Use Only); Complete Time: 18:51 [facility] 07/08 17:16 Order name: XRAY Chest (1 view); Complete Time: 18:51 [facility] 07/08 17:16 Order name: EKG; Complete Time: 17:17 [facility] 07/08 17:16 Order name: Cardiac monitoring; Complete Time: 17:31 [facility] 07/08 17:16 Order name: EKG - Nurse/Tech; Complete Time: 17:30 [facility] 07/08 17:16 Order name: Labs collected and sent; Complete Time: 17:38 [facility] 07/08 17:16 Order name: O2 Per Protocol; Complete Time: 17:31 [facility] 07/08 17:16 Order name: O2 Sat Monitoring; Complete Time: 17:31 [facility] Administered Medications: No medications were administered Disposition Summary: 07/08/21 19:02 Discharge Ordered Location: Home [facility] Condition: Stable [facility] Diagnosis - Chest pain, unspecified [facility] Followup: [facility] - With: Private Physician - When: 2 - 3 days - Reason: Recheck today's complaints, Continuance of care, Re-evaluation by your physician Discharge Instructions: - Discharge Summary Sheet [facility] - Nonspecific Chest Pain, Adult [facility] Forms: - Medication Reconciliation Form [facility] - Thank You Letter [facility] - Antibiotic Education [facility] - Prescription Opioid Use [facility] Addendum: 07/11/2021 07:08 Co-signature as Attending Physician, Adi Philip MD I agree with the assessment and r n plan of care. Attestation: The patient's history, exam findings, diagnostics, and a summary of any interventions or procedures was reviewed in detail with Doyle LEZAMA. Signatures: Dispatcher [employer] EDDoyle Cordova PA PA jmm Nieto, Roman, MD MD rn Garcia, Victoria RN RN vg1 Corrections: (The following items were deleted from the chart) 07/08 17:11 17:10 PSHx: Coronary Angioplasty; vg1 vg1 19:16 17:16 IV Saline Lock ordered. [facility] [id number]
--- NOTE | 2021-07-08 19:03 | ER ---
Nurse's Notes [facility] Name: Jahaira Coe Age: 65 yrs Sex: Female : 1955 Arrival Date: 07/08/2021 Time: 17:00 Bed 5 Private MD: Diagnosis: Chest pain, unspecified Presentation: 07/08 17:09 Chief complaint: Patient states: chest pain that radiates to Left shoulder x2 days. vg1 Denies ABD pain or nausea/vomiting. Coronavirus screen: Vaccine status: Patient reports receiving the 2nd dose of the covid vaccine. Client denies travel out of the [place] in the last 14 days. Ebola Screen: Patient negative for fever greater than or equal to 101.5 degrees Fahrenheit, and additional compatible Ebola Virus Disease symptoms. Initial Sepsis Screen: Does the patient meet any 2 criteria? No. Patient's initial sepsis screen is negative. Does the patient have a suspected source of infection? No. Patient's initial sepsis screen is negative. Risk Assessment: Do you want to hurt yourself or someone else? Patient reports no desire to harm self or others. Onset of symptoms was July 06, 2021. 17:09 Method Of Arrival: Ambulatory vg1 17:09 Acuity: LUIGI 2 vg1 Triage Assessment: 17:10 General: Appears in no apparent distress. uncomfortable, Behavior is calm, cooperative. vg1 Pain: Complains of pain in anterior aspect of left upper chest and left shoulder Pain currently is 5 out of 10 on a pain scale. Historical: - Allergies: 17:10 No Known Allergies; vg1 - Home Meds: 17:10 losartan 25 mg Oral tab once daily [Active]; metformin 500 mg Oral tab PRN [Active]; vg1 - PMHx: 17:10 "borderline diabetic"; herniated discs; Hypertension; vg1 - PSHx: 17:10 section; Hysterectomy; vg1 - Immunization history:: Client reports receiving the 2nd dose of the Covid vaccine. - Social history:: Smoking status: Patient denies any tobacco usage or history of. Screenin:52 Abuse screen: Denies threats or abuse. Denies injuries from another. Nutritional jh5 screening: No deficits noted. Tuberculosis screening: No symptoms or risk factors identified. Fall Risk None identified. Assessment: 17:47 Reassessment: Pt refuses COVID swab at this time and does not want an IV until blood jh5 results come back. 17:50 General: Appears in no apparent distress. comfortable, well groomed, Behavior is calm, jh5 cooperative, appropriate for age. Pain: Complains of pain in chest Pain radiates to back Pain began suddenly. Neuro: No deficits noted. Level of Consciousness is awake, alert, obeys commands, Oriented to person, place, time, situation, Appropriate for age Speech is normal. Cardiovascular: No deficits noted. Capillary refill < 3 seconds Patient's skin is warm and dry. Respiratory: No deficits noted. Airway is patent Trachea midline Respiratory effort is even, unlabored, Respiratory pattern is regular, symmetrical. Vital Signs: 17:09 BP 119 / 72; Pulse 99; Resp 16; Temp 98.1; Pulse Ox 100% ; Weight 82.55 kg; Height 5 vg1 ft. 4 in. (162.56 cm); Pain 5/10; 17:09 Body Mass Index 31.24 (82.55 kg, 162.56 cm) vg1 ED Course: 17:00 Patient arrived in ED. ds1 17:10 Triage completed. vg1 17:10 Arm band placed on. vg1 17:14 Doyle Jones PA is PHCP. [facility] 17:14 Adi Philip MD is Attending Physician. [facility] 17:25 Carmen James, RN is Primary Nurse. [facility] 17:35 Initial lab(s) drawn, by ut, sent to lab. Missed attempt(s): 22 gauge in right dh3 antecubital area. Bleeding controlled, band aid applied, catheter tip intact. 17:48 XRAY Chest (1 view) In Process Unspecified. EDMS 17:55 Patient has correct armband on for positive identification. Bed in low position. Call [facility] light in reach. Side rails up X 1. residential monitor on. Pulse ox on. NIBP on. 17:55 No provider procedures requiring assistance completed. Patient maintains SpO2 [facility] saturation greater than 95% on room air. Administered Medications: No medications were administered Outcome: 19:02 Discharge ordered by . dru 19:16 Patient left the ED. tw5 Signatures: Dispatcher [employer] EDMS Doyle Jones PA PA Jigna Jo ds1 Nahomy Vides 3 Jada Calderon RN RN vg1 Reyna Spear tw5 Carmen James RN RN jh5 Corrections: (The following items were deleted from the chart) 17: 17:10 PSHx: Coronary Angioplasty; vg1 vg1 17: 17:09 Acuity: LUIGI 3 vg1 vg1
[2021-07-08 19:22] VITALS: BP 119/72; TEMP 98.1; O2SAT 100
--- NOTE | 2021-07-11 08:11 | EKG ---
Test Date: 2021-07-08 Test Time: 17:23:59 Rv Mechanic: NITA MEASUREMENT RESULTS: Intervals: Rate: 96 CO: 174 QRSD: 80 QT: 348 QTc: 439 Wittmann: P: 90 CO: 174 QRS: -28 T: 113 INTERPRETIVE STATEMENTS: Normal sinus rhythm Voltage criteria for left ventricular hypertrophy Nonspecific T wave abnormality Abnormal ECG Compared to ECG 12/14/2010 18:33:10 T-wave abnormality now present Electronically Signed On 07-11-21 08:04:10 [employer] by Ish Cary
== END 2021-07-08 19:16 | disposition home or self-care (01) ==
LOC: ER 16:57
DX: R07.9 Chest pain, unspecified (principal); I10 Essential (primary) hypertension; R73.03 Prediabetes
CPT/HCPCS: 36415; 71045; 80048; 80076; 83735; 83880; 84484; 85025; 85610; 93005; 99284

== ENCOUNTER 2021-07-15 13:55 | Emergency (ER) | payer SELFPAY ==
--- OUTSIDE RECORDS SUMMARY | 2021-07-15 13:57 | XMS REPORT | Continuity of Care Document ---
:1955 Author Organization [facility] Address [address] [place] [address] Care Team Providers Name Role Phone Sienna_Morgan [...] Active Univers ALLERGIE Class ity of [facility] Tramadol Allergy Active [place] to [...] NEEDED BEDTIME NEEDED diclofenac diclofenac No diclofenac [facility] sodium 50 sodium 50 sodium 50 Family [...] for 30 days. dicyclomine dicyclomine No dicyclomin [facility] 20 mg 20 mg e 20 mg Family tablet TAKE tablet TAKE tablet Practic ONE (1) ONE (1) TAKE ONE e TABLET(S) TABLET(S) (1) BY MOUTH BY MOUTH TABLET(S) FOUR TIMES FOUR TIMES BY MOUTH A DAY A DAY FOUR TIMES NEEDED. NEEDED. A DAY NEEDED. estradiol estradiol No estradiol [facility] 0.5 mg 0.5 mg 0.5 mg Family tablet TAKE tablet TAKE tablet Practic 1 TABLET BY 1 TABLET BY TAKE 1 e MOUTH ONCE MOUTH ONCE TABLET BY DAILY DAILY MOUTH ONCE DAILY hydrochloro hydrochloro No hydrochlor [facility] thiazide 25 thiazide 25 othiazide Family mg tablet mg tablet 25 mg Prac tic Take 1 Take 1 tablet e tablet by tablet by Take 1 mouth once mouth once tablet by daily daily mouth once daily losartan 25 losartan 25 No losartan [facility] mg tablet mg tablet 25 mg Fami ly TAKE 1 TAKE 1 tablet Practic TABLET BY TABLET BY TAKE 1 e MOUTH ONCE MOUTH ONCE TABLET BY DAILY DAILY MOUTH ONCE DAILY metformin metformin No metformin [facility] 500 mg 500 mg 500 mg Family tablet TAKE tablet TAKE tablet Practic 1 TABLET BY 1 TABLET BY TAKE 1 e MOUTH TWICE MOUTH TWICE TABLET BY DAILY WITH DAILY WITH MOUTH MEALS MEALS TWICE DAILY WITH MEALS Neurontin Neurontin No Neurontin [facility] 300 mg 300 mg 300 mg Family [...] Name COVID-19 vaccine, COVID-19 vaccine, 2021-02-24 Completed [facility] Family vector-nr, vector-nr, 00:00:00 Practice rS-ChAdOx1, PF, 0.5 rS-ChAdOx1, PF, 0.5 mL mL Vital Signs Vital Name Observation Time Observation Value Comments Source BP Diastolic 2021-04-25 00:00:00 78 mm[Hg] [facility] Height 2021-04-25 00:00:00 64 [in_i] [facility] BMI (Body Mass 2021-04-25 00:00:00 32.2 kg/m2 [facility] Index) Practice BP Systolic 2021-04-25 00:00:00 115 mm[Hg] [facility] Body Weight 2021-04-25 00:00:00 187.4 [lb_av] [facility] Procedures Procedure Date / Time Performed Performing Clinician Sourc e DEXA 2021-04-25 00:00:00 [facility] Plan of Care Planned Activity Planned Date Details Comments Source Diagnostic Test 2021-04-25 HbA1c (hemoglobin [facility] Pending 00:00:00 A1c), blood [code = Practice HbA1c (hemoglobin A1c), blood] Diagnostic Test 2021-04-25 microalbumin/creatini Aishwarya [facility] Pending 00:00:00 ne, mass ratio, urine Practi ce [code = microalbumin/creatini ne, mass ratio, urine] Diagnostic Test 2021-04-25 CMP, serum or plasma [facility] Pending 00:00:00 [code = CMP, serum or Practi ce plasma] Diagnostic Test 2021-04-25 urinalysis complete, [facility] Pending 00:00:00 reflex culture [code Practic e = urinalysis complete, reflex culture] Diagnostic Test 2021-04-25 lipid panel, serum [facility] Pending 00:00:00 [code = lipid panel, Practic e serum] Diagnostic Test 2021-04-25 CBC w/ auto diff [facility] Pending 00:00:00 [code = CBC w/ auto Practice diff] Diagnostic Test 2021-04-25 TSH, serum or plasma [facility] Pending 00:00:00 [code = TSH, serum or Practi ce plasma] Diagnostic Test 2021-04-25 pathology review, [facility] Pending 00:00:00 smear [code = Practice pathology review, smear] Diagnostic Test 2021-04-25 vitamin D, [facility] Pending 00:00:00 25-hydroxy, total, Practice serum [...] Department ID 2021-07-08 Outpatient Kethineni_N VFP VFP [id number] 03-06 [facility] 05:42:18 [id number] Family Practic e 2021-07-07 Outpatient Kethineni_N VFP VFP [id number] 03-06 [facility] 17:37:49 [id number] Family Practic e 2021-07-07 Outpatient Kethineni_N VFP VFP [id number] 03-06 [facility] 17:09:10 [id number] Family Practic e 2021-07-07 Outpatient Kethineni_N VFP VFP [id number] 03-06 [facility] 15:37:19 [id number] Family Practic e 2021-07-07 Outpatient Kethineni_N VFP VFP [id number] 03-06 [facility] 12:53:46 [id number] Family Practic e 2021-04-25 2021-04-25 Edilma N VFP [place] - [id number] [facility] 00:00:00 00:00:00 TEJA Lynn: [facility] [id number] Medical - Practi c Shadow VM_CAMACHOU_Florentino e [place] [facility], [address], [place] [address] , Ph. 2018-08-01 2018-08-01 Emergency X [facility] ERT [id number] [facility] 13:07:28 16:10:00 ROMULO carson [facility] Results This patient has no known results.
[2021-07-15] MEDS ORDERED: BENZONATATE 100 MG CAP PO ONE (14:55)
--- NOTE | 2021-07-15 15:50 | RAD REPORT ---
EXAM DESCRIPTION: RAD - Chest Single View - 07/15/2021 3:24 pm CLINICAL HISTORY: CONGESTION Chest pain. COMPARISON: Chest Single View dated 07/08/2021; CHEST SINGLE VIEW dated 04/10/2013; CHEST SINGLE VIEW dated 04/16/2012; CHEST SINGLE VIEW dated 04/15/2012 FINDINGS: Portable technique limits examination quality. The lungs are grossly clear. The heart is normal in size. No displaced fractures. IMPRESSION: No acute intrathoracic process suspected.
[2021-07-15 15:57] LABS: SARS-COV-2 RT PCR NEGATIVE (NEGATIVE)
[2021-07-15] MEDS ORDERED: ACETAMINOPHEN 500 MG TAB ONE (16:32)
--- NOTE | 2021-07-15 16:37 | ER ---
Nurse's Notes [facility] Name: Jahaira Coe Age: 65 yrs Sex: Female : 1955 Arrival Date: 07/15/2021 Time: 13:57 Bed 13 Private MD: Diagnosis: Influenza due to identified novel influenza A virus Presentation: 07/15 14:14 Chief complaint: Patient states: cough and congestion starting last night. Coronavirus ld1 screen: Client presents with at least one sign or symptom that may indicate coronavirus-19. Standard/surgical mask placed on the client. Ebola Screen: No symptoms or risks identified at this time. Resp Distress? No respiratory distress is noted at this time. Initial Sepsis Screen: Does the patient meet any 2 criteria? No. Patient's initial sepsis screen is negative. Does the patient have a suspected source of infection? No. Patient's initial sepsis screen is negative. Risk Assessment: Do you want to hurt yourself or someone else? Patient reports no desire to harm self or others. Onset of symptoms was July 15, 2021. 14:14 Method Of Arrival: Ambulatory ld1 14:14 Acuity: LUIGI 4 ld1 Triage Assessment: 14:15 General: Appears in no apparent distress. comfortable, Behavior is calm, cooperative, ld1 appropriate for age. Pain: Denies pain. EENT: Throat is pink. Neuro: Level of Consciousness is awake, alert, obeys commands, Oriented to person, place, time, situation, Appropriate for age. Cardiovascular: Capillary refill < 3 seconds Patient's skin is warm and dry. Respiratory: Airway is patent Respiratory effort is even, unlabored, Respiratory pattern is regular, symmetrical, Breath sounds are clear bilaterally. GI: Abdomen is round non-distended. : No signs and/or symptoms were reported regarding the genitourinary system. Derm: No signs and/or symptoms reported regarding the dermatologic system. Musculoskeletal: No signs and/or symptoms reported regarding the musculoskeletal system. Historical: - Allergies: 14:15 No Known Allergies; ld1 - Home Meds: 14:15 losartan 25 mg Oral tab once daily [Active]; metformin 500 mg Oral tab PRN [Active]; ld1 estradiol 0.5 mg Oral tab 1 tab once daily [Active]; - PMHx: 14:15 "borderline diabetic"; herniated discs; Hypertension; ld1 - PSHx: 14:15 section; hysterectomy; ld1 - Immunization history:: Adult Immunizations not up to date, Client reports receiving the 2nd dose of the Covid vaccine. - Social history:: Smoking status: Patient denies any tobacco usage or history of. Patient/guardian denies using alcohol. Screenin:17 Abuse screen: Denies threats or abuse. Denies injuries from another. Nutritional ld1 screening: No deficits noted. Tuberculosis screening: No symptoms or risk factors identified. Fall Risk None identified. Assessment: 14:17 Reassessment: See triage assessment. Cardiovascular: Capillary refill < 3 seconds ld1 Patient's skin is warm and dry. Respiratory: Airway is patent Respiratory effort is even, unlabored, Respiratory pattern is regular, symmetrical. 15:51 Reassessment: Patient appears in no apparent distress at this time. No changes from ld1 previously documented assessment. Patient and/or family updated on plan of care and expected duration. Pain level reassessed. Patient is alert, oriented x 3, equal unlabored respirations, skin warm/dry/pink. 16:59 Respiratory:. ld1 Vital Signs: 14:14 BP 107 / 71; Pulse 89; Resp 18; Temp 99.6(O); Pulse Ox 100% on R/A; Weight 83.91 kg; ld1 Height 5 ft. 4 in. (162.56 cm); Pain 0/10; 15:51 BP 111 / 77; Pulse 85; Resp 18; Pulse Ox 99% on R/A; ld1 14:14 Body Mass Index 31.75 (83.91 kg, 162.56 cm) ld1 ED Course: 13:57 Patient arrived in ED. as 14:10 Dimitris Lynn MD is Attending Physician. sp3 14:14 Sherine Ho, RANDAL is Primary Nurse. ld1 14:15 Triage completed. ld1 14:15 Arm band placed on right wrist. ld1 14:17 Patient has correct armband on for positive identification. Bed in low position. Call ld1 light in reach. Side rails up X2. Pulse ox on. NIBP on. Door closed. Noise minimized. Warm blanket given. 14:17 No provider procedures requiring assistance completed. ld1 14:41 COVID-19/FLU A+B/RSV (Document "Date of Onset" if Symptomatic) Sent. ld1 15:24 CXR XRAY In Process Unspecified. EDMS 16:59 Patient did not have IV access during this emergency room visit. ld1 Administered Medications: 14:58 Drug: Tessalon Perle (benzonatate) 200 mg Route: PO; ld1 14:58 Follow up: Response: No adverse reaction ld1 16:34 Drug: Tylenol 1000 mg Route: PO; ld1 16:34 Follow up: Response: No adverse reaction ld1 Outcome: 16:36 Discharge ordered by . sp3 16:59 Discharged to home ambulatory. ld1 16:59 Condition: stable 16:59 Discharge instructions given to patient, Instructed on discharge instructions, follow up and referral plans. Demonstrated understanding of instructions, follow-up care. 16:59 Patient left the ED. ld1 Signatures: Dispatcher [employer] Christina Luciano Lauren, RN RN ld1 Dimitris Lynn MD MD sp3
--- NOTE | 2021-07-15 16:37 | EDPHYS ---
Physician Documentation [facility] Name: Jahaira Coe Age: 65 yrs Sex: Female : 1955 Arrival Date: 07/15/2021 Time: 13:57 Bed 13 Private MD: ED Physician Dimitris Lynn HPI: 07/15 14:41 This 65 yrs old Black Female presents to ER via Ambulatory with complaints of Cough, sp3 Congestion. 14:41 65-year-old female with a history of hypertension and diabetes presents with a 1 week sp3 history of cough and congestion. Patient was seen approximately 1 week ago for chest pain and had a full cardiac work-up which included laboratory values, chest x-ray, and EKG. At that time a COVID-19 test was ordered but based on computer a lot it was not sent. Patient states that the symptoms have been continuing since that visit. Cough is described as mild and mildly productive with "white phlegm". Patient also has rhinorrhea and nasal congestion. Currently patient has no chest pain, shortness of breath, back pain, syncope, near syncope, or any other concerning findings on ROS at this time. Patient has had 2 doses of COVID-19 vaccine and denies any known COVID-19 contacts.. Historical: - Allergies: 14:15 No Known Allergies; ld1 - Home Meds: 14:15 losartan 25 mg Oral tab once daily [Active]; metformin 500 mg Oral tab PRN [Active]; ld1 estradiol 0.5 mg Oral tab 1 tab once daily [Active]; - PMHx: 14:15 "borderline diabetic"; herniated discs; Hypertension; ld1 - PSHx: 14:15 section; hysterectomy; ld1 - Immunization history:: Adult Immunizations not up to date, Client reports receiving the 2nd dose of the Covid vaccine. - Social history:: Smoking status: Patient denies any tobacco usage or history of. Patient/guardian denies using alcohol. ROS: 14:42 Constitutional: Negative for fever, chills, and weight loss, Eyes: Negative for injury, sp3 pain, redness, and discharge, ENT: Negative for injury, pain, and discharge, Neck: Negative for injury, pain, and swelling, Cardiovascular: Negative for chest pain, palpitations, and edema, Respiratory: Negative for shortness of breath, wheezing, and pleuritic chest pain. Patient does have mild cough as in HPI. Abdomen/GI: Negative for abdominal pain, nausea, vomiting, diarrhea, and constipation, Back: Negative for injury and pain, MS/Extremity: Negative for injury and deformity, Skin: Negative for injury, rash, and discoloration, Neuro: Negative for headache, weakness, numbness, tingling, and seizure. Exam: 14:43 Constitutional: This is a well developed, well nourished patient who is awake, alert, sp3 and in no acute distress. Head/Face: Normocephalic, atraumatic. Eyes: Pupils equal round and reactive to light, extra-ocular motions intact. Lids and lashes normal. Conjunctiva and sclera are non-icteric and not injected. Cornea within normal limits. Periorbital areas with no swelling, redness, or edema. ENT: Nares patent. No nasal discharge, no septal abnormalities noted. External auditory canals are clear. Oropharynx with no redness, swelling, or masses, exudates, or evidence of obstruction, uvula midline. Mucous membranes moist. Neck: Trachea midline, no thyromegaly or masses palpated, and no cervical lymphadenopathy. Supple, full range of motion without nuchal rigidity, or vertebral point tenderness. No Meningismus. Chest/axilla: Normal chest wall appearance and motion. Nontender with no deformity. No lesions are appreciated. Cardiovascular: Regular rate and rhythm with a normal S1 and S2. No gallops, murmurs, or rubs. Normal PMI, no JVD. No pulse deficits. Respiratory: Lungs have equal breath sounds bilaterally, clear to auscultation and percussion. No rales, rhonchi or wheezes noted. No increased work of breathing, no retractions or nasal flaring. Abdomen/GI: Soft, non-tender, with normal bowel sounds. No distension or tympany. No guarding or rebound. No evidence of tenderness throughout. Back: No spinal tenderness. No costovertebral tenderness. Full range of motion. Skin: Warm, dry with normal turgor. Normal color with no rashes, no lesions, and no evidence of cellulitis. MS/ Extremity: Pulses equal, no cyanosis. Neurovascular intact. Full, normal range of motion. Neuro: Awake and alert, GCS 15, oriented to person, place, time, and situation. Cranial nerves II-XII grossly intact. Motor strength 5/5 in all extremities. Sensory grossly intact. Cerebellar exam normal. Normal gait. Psych: Awake, alert, with orientation to person, place and time. Behavior, mood, and affect are within normal limits. Vital Signs: 14:14 BP 107 / 71; Pulse 89; Resp 18; Temp 99.6(O); Pulse Ox 100% on R/A; Weight 83.91 kg; ld1 Height 5 ft. 4 in. (162.56 cm); Pain 0/10; 15:51 BP 111 / 77; Pulse 85; Resp 18; Pulse Ox 99% on R/A; ld1 14:14 Body Mass Index 31.75 (83.91 kg, 162.56 cm) ld1 MDM: 14:29 Patient medically screened. sp3 14:43 Data reviewed: vital signs, nurses notes. ED course: 65-year-old female who is sp3 clinically stable and in no acute distress. Patient likely has a URI and we will evaluate with chest x-ray, viral panel which includes COVID-19. There is no need to repeat blood work as 1 week ago laboratory values did not demonstrate any significant abnormality. I meant highly suspicious for cardiac etiology in this. Disposition based on work-up and viral studies. . 16:35 ED course: Patient's chest x-ray is negative and is positive for influenza A. Will sp3 discharge patient home with reassurance and educational instructions.. 07/15 14:34 Order name: COVID-19/FLU A+B/RSV (Document "Date of Onset" if Symptomatic); Complete em1 Time: 16:33 07/15 14:30 Order name: CXR XRAY; Complete Time: 16:33 sp3 Administered Medications: 14:58 Drug: Tessalon Perle (benzonatate) 200 mg Route: PO; ld1 14:58 Follow up: Response: No adverse reaction ld1 16:34 Drug: Tylenol 1000 mg Route: PO; ld1 16:34 Follow up: Response: No adverse reaction ld1 Disposition Summary: 07/15/21 16:36 Discharge Ordered Location: Home sp3 Condition: Stable sp3 Diagnosis - Influenza due to identified novel influenza A virus sp3 Followup: sp3 - With: Private Physician - When: - Reason: Recheck today's complaints Discharge Instructions: - Discharge Summary Sheet sp3 - Influenza, Adult sp3 Forms: - Medication Reconciliation Form sp3 - Thank You Letter sp3 - Antibiotic Education sp3 - Prescription Opioid Use sp3 Prescriptions: - Tessalon Perles 100 mg Oral Capsule - take 1 capsule by ORAL route every 8 hours As needed; 15 capsule; Refills: 0, sp3 Product Selection Permitted Signatures: Dispatcher [employer] Sherine Rojas RN RN ld1 Dimitris Lynn MD MD sp3
[2021-07-15 17:03] VITALS: TEMP 99.6
[2021-07-15 17:04] VITALS: BP 111/77; O2SAT 99
== END 2021-07-15 16:59 | disposition home or self-care (01) ==
LOC: ER 13:55
DX: J10.1 Influenza due to other identified influenza virus with other respiratory manifestations (principal); I10 Essential (primary) hypertension; Z20.822 Contact with and (suspected) exposure to COVID-19
CPT/HCPCS: 0241U; 71045; 99284

== ENCOUNTER 2021-12-16 14:12 | Emergency (ER) | payer OTHER, SELFPAY ==
--- OUTSIDE RECORDS SUMMARY | 2021-12-16 14:15 | XMS REPORT | Continuity of Care Document ---
:[address] [facility] Address [address] [place] [address] Care Team Providers Name Role Phone Kethineni_N Attending Clinician Unavailable GC_CSFC_Kethineni_N Attending Clinician Unavailable Kevin ALSTON Attending Clinician Unavailable Kethineni_N Admitting Clinician Unavailable GC_CSFC_Kethineni_N Admitting Clinician Unavailable Payers Payer Name Policy Type Policy Number Effective Date Expiration Date S faisal MEDICARE B-[place]: [id number] 2021 [place] 00:00:00 MEDICARE A-[place]: [id number] [place] BENEFIT PLAN [id number] [facility] (O) Problems Condition Condition Condition Status Onset Resolution [...] Active [facility] ALLERGIE Class ity of [facility] Tramadol Allergy Active [facility] e Social History Smoking Status Start Date Stop Date Source Never Smoker [facility] Medications Ordered Filled Start Stop Current Ordering Indication Dosage Frequency Signature Comments Components Source Medication Medication Date Date Medication? Clinician (SIG) Name Name atorvastati atorvastati No atorvastat [facility] n 10 mg n 10 mg in 10 mg Famil y tablet TAKE tablet TAKE tablet Practic ONE (1) ONE (1) TAKE ONE e TABLET(S) TABLET(S) (1) BY MOUTH BY MOUTH TABLET(S) DAILY AT DAILY AT BY MOUTH BEDTIME. BEDTIME. DAILY AT BEDTIME. benzonatate benzonatate No benzonatat [facility] 100 mg 100 mg e 100 mg Family capsule capsule capsule Practi c TAKE ONE TAKE ONE TAKE ONE e (1) (1) (1) CAPSULE(S) CAPSULE(S) CAPSULE(S) BY MOUTH BY MOUTH BY MOUTH EVERY EIGHT EVERY EIGHT EVERY HOURS HOURS EIGHT NEEDED FOR NEEDED FOR HOURS COUGH AND COUGH AND NEEDED FOR CONGESTION. CONGESTION. COUGH AND CONGESTION . cyclobenzap cyclobenzap No cyclobenza [facility] rine 10 mg rine 10 mg colin 10 Family tablet TAKE tablet TAKE mg tablet Practic ONE (1) ONE (1) TAKE ONE e TABLET BY TABLET BY (1) TABLET MOUTH AT MOUTH AT BY MOUTH BEDTIME BEDTIME AT BEDTIME NEEDED. NEEDED. NEEDED. diclofenac diclofenac diclofenac [facility] sodium 50 sodium 50 sodium 50 Family mg mg mg Practic tablet,carol tablet,carol tablet,del e yed release yed release ayed TAKE ONE TAKE ONE release (1) (1) TAKE ONE TABLET(S) TABLET(S) (1) BY MOUTH BY MOUTH TABLET(S) ONCE A DAY ONCE A DAY BY MOUTH WITH A WITH A ONCE A DAY MEAL. MEAL. WITH A MEAL. estradiol estradiol estradiol [facility] 0.5 mg 0.5 mg 0.5 mg Family tablet TAKE tablet TAKE tablet Practic ONE (1) ONE (1) TAKE ONE e TABLET(S) TABLET(S) (1) BY MOUTH BY MOUTH TABLET(S) ONCE A DAY. ONCE A DAY. BY MOUTH ONCE A DAY. hydrochloro hydrochloro No hydrochlor [facility] thiazide 25 thiazide 25 othiazide Family mg tablet mg tablet 25 mg Prac tic TAKE ONE TAKE ONE tablet e (1) (1) TAKE ONE TABLET(S) TABLET(S) (1) BY MOUTH BY MOUTH TABLET(S) ONCE A DAY. ONCE A DAY. BY MOUTH ONCE A DAY. losartan 25 losartan 25 No losartan [facility] mg tablet mg tablet 25 mg Fami ly TAKE 1 TAKE 1 tablet Practic TABLET BY TABLET BY TAKE 1 e MOUTH ONCE MOUTH ONCE TABLET BY DAILY DAILY MOUTH ONCE DAILY metformin metformin No metformin [facility] 500 mg 500 mg 500 mg Family tablet TAKE tablet TAKE tablet Practic ONE (1) ONE (1) TAKE ONE e TABLET(S) TABLET(S) (1) BY MOUTH BY MOUTH TABLET(S) TWICE A DAY TWICE A DAY BY MOUTH WITH MEALS. WITH MEALS. TWICE A DAY WITH MEALS. montelukast montelukast No montelukas [facility] 10 mg 10 mg t 10 mg Family tablet TAKE tablet TAKE tablet Practic ONE (1) ONE (1) TAKE ONE e TABLET(S) TABLET(S) (1) BY MOUTH BY MOUTH TABLET(S) ONCE A DAY ONCE A DAY BY MOUTH IN THE IN THE ONCE A DAY EVENING. EVENING. IN THE EVENING. Neurontin Neurontin No Neurontin [facility] 300 mg 300 mg 300 mg Family capsule capsule capsule Practi c Take 1 Take 1 Take 1 e capsule capsule capsule twice a day twice a day twice a by oral by oral day by route for route for oral route 30 days. 30 days. for 30 days. Immunizations Ordered Immunization Filled Immunization Date Status Commen ts Source Name Name COVID-19, mRNA, COVID-19, mRNA, 2021-07-23 Completed [facility] age Family LNP-S, PF, 30 LNP-S, PF, 30 00:00:00 Practice mcg/0.3 mL dose mcg/0.3 mL dose (Pfizer-BioNTech) (OpenNews-BioNTech) COVID-19, mRNA, COVID-19, mRNA, 2021-02-24 Completed [facility] age Family LNP-S, PF, 30 LNP-S, PF, 30 00:00:00 Practice mcg/0.3 mL dose mcg/0.3 mL dose (Pfizer-BioNTech) (OpenNews-BioNTech) Vital Signs Vital Name Observation Time Observation Value Comments Source BP Diastolic 2021 00:00:00 82 mm[Hg] [facility] Practice Height 2021 00:00:00 64 [in_i] [facility] BMI (Body Mass 2021 00:00:00 31.8 kg/m2 [facility] Index) Practice BP Systolic 2021 00:00:00 126 mm[Hg] [facility] Body Weight 2021 00:00:00 185 [lb_av] [facility] BP Diastolic 2021-08-28 00:00:00 80 mm[Hg] [facility] Height 2021-08-28 00:00:00 64 [in_i] [facility] BMI (Body Mass 2021-08-28 00:00:00 33.6 kg/m2 [facility] Family Index) Practice BP Systolic 2021-08-28 00:00:00 130 mm[Hg] [facility] Body Weight 2021-08-28 00:00:00 195.8 [lb_av] [facility] BP Diastolic 2021-04-25 00:00:00 78 mm[Hg] [facility] Height 2021-04-25 00:00:00 64 [in_i] [facility] BMI (Body Mass 2021-04-25 00:00:00 32.2 kg/m2 [facility] Family Index) Practice BP Systolic 2021-04-25 00:00:00 115 mm[Hg] [facility] Body Weight 2021-04-25 00:00:00 187.4 [lb_av] [facility] Procedures Procedure Date / Time Performed Performing Clinician [facility] e MAMMO, screening, 2021 00:00:00 [facility] Johanny emerson digital, bilateral Practice DEXA, axial skeleton 2021 00:00:00 [facility] X-RAY OF CHEST 2 VIEW 2021-08-28 00:00:[address] [facility] DEXA 2021-04-25 00:00:00 [facility] Nigel gale Practice Hysterectomy (Total) 2006-09-18 00:00:00 [facility] Plan of Care Planned Activity Planned Date Details Comments Source Diagnostic Test 2021 HbA1c (hemoglobin [facility] Pending 00:00:00 A1c), blood [code = Practice HbA1c (hemoglobin A1c), blood] Diagnostic Test 2021 microalbumin/creatin [facility] Pending 00:00:00 ine, mass ratio, Practice urine [code = microalbumin/creatin ine, mass ratio, urine] Diagnostic Test 2021 CMP, serum or plasma [facility] Family Pending 00:00:00 [code = CMP, serum Practice or plasma] Diagnostic Test 2021 urinalysis complete, [facility] Family Pending 00:00:00 reflex culture [code Practic e = urinalysis complete, reflex culture] Diagnostic Test 2021 CBC w/ auto diff [facility] Pending 00:00:00 [code = CBC w/ auto Practice diff] Diagnostic Test 2021 TSH, serum or plasma [facility] Family Pending 00:00:00 [code = TSH, serum Practice or plasma] Diagnostic Test 2021 magnesium, serum or [place] [facility] Pending 00:00:00 plasma [code = Practice magnesium, serum or plasma] Diagnostic Test 2021 lipid panel, serum [facility] Pending 00:00:00 [code = lipid panel, Practic e serum] Diagnostic Test 2021 vitamin D, [facility] F[facility] ly Pending 00:00:00 25-hydroxy, total, Practice serum [code = vitamin D, 25-hydroxy, total, serum] Encounters Start End Encounter Admission Attending Care Care Encounter Source Date/Time Date/Time Type Type Clinicians Facility Department ID 2021-12-04 2021-12-04 Outpatient Kethineni_N VFP VFP [id number] 10:22:00 10:22:00 [id number] Family Practic e 2021 2021 Outpatient Kethineni_N VFP VFP [id number] [facility] 03:12:00 03:12:00 [id number] Family Practic e 2021 2021 Edilma N VFP [place] - [id number] V illage 00:00:00 00:00:00 TEJA Lynn: [facility] misael [address] Medical - Pracjaiden SNYDER_HOU_[address], [address] [address] , Ph. 2021-11-18 2021-11-18 Outpatient Kethineni_N VFP VFP [id number] [facility] 01:19:00 01:19:00 [id number] Family Practic e 2021-11-18 2021-11-18 Outpatient Kethineni_N VFP VFP [id number] [facility] 01:19:00 01:19:00 [id number] Family Practic e 2021-11-18 2021-11-18 Outpatient Kethineni_N VFP VFP [id number] [facility] 01:19:00 01:19:00 [id number] Family Practic e 2021-10-14 2021-10-14 Outpatient Kethineni_N VFP VFP [id number] [facility] 02:12:00 02:12:00 [id number] Family Practic e 2021-09-24 2021-09-24 Outpatient GC_CSFC_Ket PRIV PRIV [id number] [facility] 01:09:00 01:09:00 hineni_N [id number] Medic al 2021-09-09 2021-09-09 Outpatient Kethineni_N VFP VFP [id number] [facility] 12:56:00 12:56:00 [id number] Family Practic e 2021-09-04 2021-09-04 Outpatient Kethineni_N VFP VFP [id number] [facility] 01:14:00 01:14:00 [id number] Family Practic e 2021-09-03 2021-09-03 Outpatient Kethineni_N VFP VFP [id number] [facility] 11:39:00 11:39:00 [id number] Family Practic e 2021-08-28 2021-08-28 Outpatient Kethineni_N VFP VFP [id number] [facility] 05:07:00 05:07:00 [id number] Family Practic e 2021-08-28 2021-08-28 Edilma N VFP [place] - [id number] [facility] ill[facility] 00:00:00 00:00:00 TEJA Lynn: [facility] [id number] Medical - Practi c Shadow VM_HOU_Shad e [employer] [facility], [address], [place] [address] , Ph. 2021-08-27 2021-08-27 Outpatient GC_CSFC_Ket PRIV PRIV [id number] [facility] 01:27:00 01:27:00 hineni_N [id number] Medic al 2021-07-30 2021-07-30 Outpatient GC_CSFC_Ket PRIV PRIV [id number] [facility] 12:41:00 12:41:00 hineni_N [id number] Medic al 2021-05-30 2021-05-30 Outpatient Kethineni_N VFP VFP [id number] [facility] 11:09:00 11:09:00 [id number] Family Practic e 2021-05-01 2021-05-01 Outpatient Kethineni_N VFP VFP [id number] [facility] 05:43:00 05:43:00 [id number] Family Practic e 2021-04-30 2021-04-30 Outpatient Kethineni_N VFP VFP [id number] [facility] 05:27:00 05:27:00 [id number] Family Practic e 2021-04-25 2021-04-25 Outpatient Kethineni_N VFP VFP [id number] [facility] 11:35:00 11:35:00 [id number] Family Practic e 2021-04-25 2021-04-25 Edilma N VFP [place] - [id number] V illage 00:00:00 00:00:00 TEJA Lynn: [place] [id number] Medical - Practi c Shadow VM_HOU_Shad e [employer] [facility] [employer] [facility], [address], [place] [address] , Ph. 2021-02-21 2021-02-21 Outpatient Kethineni_N VFP VFP [id number] [facility] 01:27:00 01:27:00 [id number] Family Practic e 2018-08-01 2018-08-01 Emergency X ALECIA CTMARIE ERT [id number] [facility] 13:07:28 16:10:00 ROMULO crason [facility] Results Test Description Test Time Test Comments Results Result Comments Source Glucose [Mass/volume] in Capillary blood 2021-08-28 16:26:00 Test Item Value Reference Range Interpretation Comme nts Blood Glucose: mg/dl (test code = Blood Glucose: mg/dl) 135 [facility] Family Practice
[2021-12-16] MEDS ORDERED: CYCLOBENZAPRINE 10 MG TAB ONE (15:05)
[2021-12-16] MEDS ORDERED: HYDROCODONE/APAP 10/325 TAB ONE (15:05)
[2021-12-16] MEDS ORDERED: LIDOCAINE 4% PATCH ONE (15:06)
[2021-12-16] MEDS ORDERED: KETOROLAC 30 MG/ML INJ ONE (15:06)
--- NOTE | 2021-12-16 16:14 | EDPHYS ---
Physician Documentation [facility] Name: Jahaira Coe Age: 66 yrs Sex: Female : 1955 Arrival Date: 12/16/2021 Time: 14:18 Bed 12 Private MD: [facility] ED Physician Inderjit Sweeney HPI: 12/16 15:03 This 66 yrs old Black Female presents to ER via Ambulatory with complaints of Leg Pain pm1 - right. 15:03 The patient presents with pain, that is chronic. The complaints affect the The pm1 complaints affect the right leg. Context: resulted from Possibly from herniated disks to lumbar spine. History of chronic back pain present for many years, the patient can fully bear weight, the patient is able to ambulate. Onset: The symptoms/episode began/occurred Present for many years worse the past few days. Modifying factors: The symptoms are alleviated by Positioning. Associated signs and symptoms: Pertinent positives: numbness, tingling, of the right leg, Pertinent negatives fever. Treatment prior to arrival includes: no previous treatment. Severity of symptoms: in the emergency department the symptoms are actually worse. The patient has experienced similar episodes in the past, chronically. The patient has not recently seen a physician. Historical: - Allergies: 14:52 Flu Vaccine; aa5 - PMHx: 14:50 "borderline diabetic"; herniated discs; Hypertension; Arthritis to spine; aa5 - PSHx: 14:50 section; hysterectomy; aa5 - Immunization history:: Flu vaccine is not up to date. - Social history:: Smoking status: Patient denies any tobacco usage or history of. ROS: 15:03 Constitutional: Negative for fever, chills, and weight loss, Cardiovascular: Negative pm1 for chest pain, palpitations, and edema, Respiratory: Negative for shortness of breath, cough, wheezing, and pleuritic chest pain, Abdomen/GI: Negative for abdominal pain, nausea, vomiting, diarrhea, and constipation. 15:03 MS/Extremity: Negative for injury and deformity, Skin: Negative for injury, rash, and discoloration, Neuro: Negative for headache, weakness, numbness, tingling, and seizure. 15:03 Back: Positive for of the right low back. 15:03 All other systems are negative. Exam: 15:03 Constitutional: This is a well developed, well nourished patient who is awake, alert, pm1 and in no acute distress. Head/Face: Normocephalic, atraumatic. 15:03 Skin: Warm, dry with normal turgor. Normal color with no rashes, no lesions, and no evidence of cellulitis. MS/ Extremity: Pulses equal, no cyanosis. Neurovascular intact. Full, normal range of motion. 15:03 Cardiovascular: Exam negative for acute changes, Rate: normal, Rhythm: regular, Pulses: no pulse deficits are appreciated, Heart sounds: normal. 15:03 Respiratory: Exam negative for acute changes, respiratory distress, shortness of breath, Breath sounds: are clear throughout. 15:03 Abdomen/GI: Exam negative for acute changes, Inspection: abdomen appears normal, Palpation: abdomen is soft and non-tender, in all quadrants. 15:03 Back: vertebral tenderness, is not appreciated, muscle spasm, is appreciated in the right low back. 15:03 Neuro: Exam negative for acute changes, Orientation: is normal, Mentation: is normal, Motor: is normal, moves all fours. Vital Signs: 14:50 BP 118 / 76; Pulse 92; Resp 18 S; Temp 98.5(O); Pulse Ox 100% on R/A; Weight 87.27 kg aa5 (R); Height 5 ft. 4 in. (162.56 cm) (R); 14:50 Body Mass Index 33.03 (87.27 kg, 162.56 cm) aa5 MDM: 15:08 Patient medically screened. pm1 15:36 Data reviewed: vital signs. Data interpreted: Pulse oximetry: on room air is 100 %. pm1 Interpretation: normal. 16:13 Counseling: I had a detailed discussion with the patient and/or guardian regarding: the pm1 historical points, exam findings, and any diagnostic results supporting the discharge/admit diagnosis, the need for outpatient follow up, to return to the emergency department if symptoms worsen or persist or if there are any questions or concerns that arise at home. 16:13 Medication response: Patient reports 0/10 pain. pm1 Administered Medications: 15:09 Drug: Lidoderm Patch 5 % (700 mg/patch) 1 patches Route: Topical; Site: affected area; aa5 15:10 Drug: [place] (HYDROcodone-acetaminophen) 10 mg-325 mg 1 tabs Route: PO; aa5 16:15 Follow up: Response: No adverse reaction; Marked relief of symptoms aa5 15:10 Drug: Ketorolac 60 mg Route: IM; Site: right gluteus; aa5 16:15 Follow up: Response: No adverse reaction; Marked relief of symptoms aa5 15:10 Drug: Flexeril (cyclobenzaprine) 10 mg Route: PO; aa5 16:15 Follow up: Response: No adverse reaction aa5 Disposition: 18:00 Co-signature as Attending Physician, Inderjit Sweeney MD I agree with the assessment and kdr plan of care. Disposition Summary: 12/16/21 16:14 Discharge Ordered Location: Home pm1 Problem: new pm1 Symptoms: have improved pm1 Condition: Stable pm1 Diagnosis - Lumbago with sciatica, right side pm1 Followup: pm1 - With: Emergency Department - When: As needed - Reason: Worsening of condition Followup: pm1 - With: Private Physician - When: 2 - 3 days - Reason: Recheck today's complaints, Continuance of care, Re-evaluation by your physician Discharge Instructions: - Discharge Summary Sheet pm1 - Sciatica pm1 Forms: - Medication Reconciliation Form pm1 - Thank You Letter pm1 - Antibiotic Education pm1 - Prescription Opioid Use pm1 Prescriptions: - Cyclobenzaprine 10 mg Oral Tablet - take 1 tablet by ORAL route every 8 hours As needed; 30 tablet; Refills: 0, pm1 Product Selection Permitted - Tylenol-Codeine #3 300 mg-30 mg Oral - take 1 tablet by ORAL route every 6 hours As needed; 12 tablet; Refills: 0, pm1 Product Selection Permitted - Lidoderm 5 % Topical adhesive patch,medicated - apply 1 patch by TRANSDERMAL route once daily As needed 12 hours on and 12 pm1 hours off in a 24 hour period; 10 patch; Refills: 0, Product Selection Permitted Signatures: Inderjit Sweeney MD MD [facility] Mindi Duarte RN RN aa5 Alvin Easley NP [employer]AVA PROGRAMMER ANALYST pm1 Corrections: (The following items were deleted from the chart) 14:52 14:50 Allergies: No Known Allergies; aa5 aa5 14:55 14:55 PMHx: herniated discs; aa5 aa5
--- NOTE | 2021-12-16 16:14 | ER ---
Nurse's Notes [facility] Name: Jahaira Coe Age: 66 yrs Sex: Female : 1955 Arrival Date: 12/16/2021 Time: 14:18 Bed 12 Private MD: Tesfaye Lynn Diagnosis: Lumbago with sciatica, right side Presentation: 12/16 14:50 Chief complaint: Patient states: right low back pain and right leg pain with aa5 numbness/tingling to right leg that began Friday. Coronavirus screen: At this time, the client does not indicate any symptoms associated with coronavirus-19. Ebola Screen: No symptoms or risks identified at this time. Initial Sepsis Screen: Does the patient meet any 2 criteria? No. Patient's initial sepsis screen is negative. Does the patient have a suspected source of infection? No. Patient's initial sepsis screen is negative. Risk Assessment: Do you want to hurt yourself or someone else? Patient reports no desire to harm self or others. Onset of symptoms was November 2021. 14:50 Acuity: LUIGI 4 aa5 14:50 Method Of Arrival: Ambulatory aa5 Historical: - Allergies: 14:52 Flu Vaccine; aa5 - PMHx: 14:50 "borderline diabetic"; herniated discs; Hypertension; Arthritis to spine; aa5 - PSHx: 14:50 section; hysterectomy; aa5 - Immunization history:: Flu vaccine is not up to date. - Social history:: Smoking status: Patient denies any tobacco usage or history of. Screenin:50 Abuse screen: Denies threats or abuse. Nutritional screening: No deficits noted. aa5 Tuberculosis screening: No symptoms or risk factors identified. Fall Risk None identified. Assessment: 15:05 General: Appears uncomfortable, Behavior is calm, cooperative. Pain: Complains of pain aa5 in right leg and right low back Pain currently is 9 out of 10 on a pain scale. Neuro: Level of Consciousness is awake, alert, obeys commands, Oriented to person, place, time, situation. Cardiovascular: Patient's skin is warm and dry. Respiratory: Airway is patent Respiratory effort is even, unlabored, Respiratory pattern is regular, symmetrical. GI: No signs and/or symptoms were reported involving the gastrointestinal system. : No signs and/or symptoms were reported regarding the genitourinary system. Denies incontinence. EENT: No signs and/or symptoms were reported regarding the EENT system. Derm: Skin is dry, Skin is normal, Skin temperature is warm. Musculoskeletal: Range of motion: intact in all extremities. 16:15 Reassessment: Patient states feeling better. Patient states symptoms have improved. aa5 Neuro: Level of Consciousness is awake, alert, obeys commands, Oriented to person, place, time, situation. Respiratory: Airway is patent Respiratory effort is even, unlabored, Respiratory pattern is regular, symmetrical. Derm: Skin is dry, Skin is normal, Skin temperature is warm. Vital Signs: 14:50 BP 118 / 76; Pulse 92; Resp 18 S; Temp 98.5(O); Pulse Ox 100% on R/A; Weight 87.27 kg aa5 (R); Height 5 ft. 4 in. (162.56 cm) (R); 14:50 Body Mass Index 33.03 (87.27 kg, 162.56 cm) aa5 ED Course: 14:18 Patient arrived in ED. am2 14:18 Tesfaye Lynn DO is Private Physician. am2 14:20 Alvin Easley NP is PHCP. pm1 14:20 Inderjit Sweeney MD is Attending Physician. pm1 14:49 Arm band placed on. aa5 14:49 Patient has correct armband on for positive identification. aa5 14:51 Triage completed. aa5 15:09 Mindi Duarte, RN is Primary Nurse. aa5 16:32 No provider procedures requiring assistance completed. Patient did not have IV access aa5 during this emergency room visit. Administered Medications: 15:09 Drug: Lidoderm Patch 5 % (700 mg/patch) 1 patches Route: Topical; Site: affected area; aa5 15:10 Drug: [place] (HYDROcodone-acetaminophen) 10 mg-325 mg 1 tabs Route: PO; aa5 16:15 Follow up: Response: No adverse reaction; Marked relief of symptoms aa5 15:10 Drug: Ketorolac 60 mg Route: IM; Site: right gluteus; aa5 16:15 Follow up: Response: No adverse reaction; Marked relief of symptoms aa5 15:10 Drug: Flexeril (cyclobenzaprine) 10 mg Route: PO; aa5 16:15 Follow up: Response: No adverse reaction aa5 Outcome: 16:14 Discharge ordered by . pm1 16:32 Discharged to home ambulatory. aa5 16:32 Condition: improved 16:32 Discharge instructions given to patient, Instructed on discharge instructions, follow up and referral plans. medication usage, Demonstrated understanding of instructions, follow-up care, medications, Prescriptions given X 3. 16:35 Patient left the ED. aa5 Signatures: Mindi Duarte RN RN aa5 Alvin Easley NP PHYS ASST pm1 Larisa Garrett am2 Corrections: (The following items were deleted from the chart) 14:52 14:50 Allergies: No Known Allergies; aa5 aa5 14:55 14:55 PMHx: herniated discs; aa5 aa5
[2021-12-16 17:32] VITALS: BP 118/76; TEMP 98.5; O2SAT 100
== END 2021-12-16 16:35 | disposition home or self-care (01) ==
LOC: ER 14:12
DX: M54.41 Lumbago with sciatica, right side (principal); I10 Essential (primary) hypertension; Z88.7 Allergy status to serum and vaccine
CPT/HCPCS: 96372; 99283

== ENCOUNTER 2024-05-30 11:46 | Emergency (ER) | payer OTHER, SELFPAY ==
--- OUTSIDE RECORDS SUMMARY | 2024-05-30 11:50 | XMS REPORT | Continuity of Care Document ---
Author Name Unknown Address [address] [facility] [address] [place] [address] [facility] thconnect Address [address] [facility] [place] [address] Care Team Providers Care Monkey Trainer Name Role Phone MARJAN PORTER Primary Care Physician Nikki vailaMarjan Sneed Attending Clinician ANTONIO Muñoz Attending Clinician Unavailab Antonio Rivera NP Attending Clinician [phone] Bhakti Attending Clinician Unavail KALEB Sharp Attending Clinician UnavailKaleb Pandey MD Attending Clinician [phone] Doctor Unassigned, Lynden Attending Clinician U DUSTIN Heaton Attending Clinician Unavailable Dustin Herring MD Attending Clinician [phone] Cornelio Attending Clinician Unavailable [facility]organ Attending Clinician UnavailROMULO Villanueva Attending Clinician Unavailable ANTONIO JACKSON Admitting Clinician Unavailab Brady Admitting Clinician Unavail KALEB Sharp Admitting Clinician Kaleb Garcia MD Admitting Clinician S[facility]Morgan Admitting Clinician Unavailable [facility]_N Admitting Clinician Unavailtiesha ble Payers Payer Name Policy Type Policy Number Effective Date Expirati on Date Source [employer] MEDICARE ADVANTAGE [id number] 2022 00:00:00 [employer] - [employer] (MEDICARE REPLACEMENT/ADVANTAGE - HMO) [id number] [facility] - MEDICARE COMPLETE (MEDICARE REPLACEMENT HMO) [id number] [place] [employer] [id number] 2021 00:00:00 [place] [employer] [id number] 2021 00:00:00 [employer] - [facility] (PPO) [id number] Problems Condition Name Condition Details Condition Category Status Onset Date Resolution Date Last Treatment Date Treating Clinician Comments Source Right hip pain Right hip pain Disease Active 04-02 00:00: 00 [facility] acute hospital Strain of right hip, initial encounter Strain of right hip, initial encounter Disease Active 04-02 00:00: 00 [facility] acute hospital Advance care planning Advance Care Planning Problem Active - 00:00: 00 [facility] Exposure to SARS-CoV-2 Exposure to SARS-CoV-2 Problem Active 04-06 00:00: 00 [facility] Diabetes mellitus Diabetes Mellitus Problem Active 01-07 00:00: 00 [facility] Hyperlipid emia Hyperlipid emia Problem Active 01-07 00:00: 00 [facility] Essential hypertensi on Essential Hypertensi on Problem Active 01-07 00:00: 00 [facility] [id number] Lumbar spondylosi s Problem [facility] Chronic pain syndrome Chronic pain syndrome Problem [facility] [id number] Disc degenerati on, lumbar Problem [facility] Allergies, Adverse Reactions, Alerts Allergy Name Allergy Type Status Severity Reaction(s) Onset Date Inactive Date Treating Clinician Comments Source EGG DRUG INGREDI Active Anaphylaxis 1-10 00:00: 00 General acute hospital Egg Propensi ty to adverse reaction s Active Anaphylaxis 08-27 00:00: 00 General acute hospital FLU VAC 2014 (65 UP)-MF59 C(PF) DRUG Active High Other-Cmnt 1- 00:00: 00 [facility] acute hospital TRAMADOL DRUG INGREDI Active Med Rash 1- 00:00: 00 General acute hospital CODEINE DRUG INGREDI Active High Hives 1- 00:00: 00 General acute hospital Codeine Drug Allergy Active Hives 1 00:00: 00 General acute hospital Flu Vac 2014 (65 Up)-Mf59 c(Pf) Propensi ty to adverse reaction s to drug Active Other - See comments 08-20 00:00: 00 Could not walk or talk General acute hospital Tramadol Drug Allergy Active Rash 08-20 00:00: 00 General acute hospital Tylenol- codeine #3 Allergy to substanc e Active Mild Hives 2021-08 0 00:00: 00 [facility] Egg Allergy to substanc e Active [facility] Tramadol Allergy to substanc e Active [facility] NO KNOWN ALLERGIE S Drug Class Active General acute hospital Social History Social Habit Start Date Stop Date Quantity Comments Source Sex Assigned At [facility] History of [facility] Use [facility] of Social function 2023-08-27 00:00:00 2023-08-27 00:00:00 [facility] Tobacco use and exposure 2023-06-03 00:00:00 2023-06-03 00:00:00 Smokeless tobacco non-user [facility] Smoking Status Start Date Stop Date Source Tobacco smoking consumption unknown [facility] Never smoked tobacco General acute hospital Medications Ordered Medication Name Filled Medication Name Start Date Stop Date Current Medication? Ordering Clinician Indication Dosage Frequency Signature (SIG) Comments Components Source HYDROcodone -Acetaminop hen 7.5-325 MG HYDROcodone -Acetaminop hen 7.5-325 MG 9-06 00:00: 00 No 1{table t_as_ne eded} QD HYDROcodon e-Acetamin ophen 7.5-325 MG HYDROcodone -acetaminop hen (NORCO 5) tablet 1 tablet 04-02 15:15: 00 04-02 15:35 :00 No 1{tbl} 1 tablet, Oral, ONCE, 1 dose, On Fri04/02/24 at 1015, [facility] methocarbam oL (ROBAXIN) tablet 1,000 mg 04-02 15:15: 00 04-02 15:35 :00 No 1000mg 1,000 mg, Oral, ONCE, 1 dose, On Fri04/02/24 at 1015, [facility] FENTanyl PF (SUBLIMAZE (PF)) injection 25 mcg 08-27 16:25: 22 Yes 25ug 25 mcg, Slow IV Push, Q5MIN PRN, 4 doses, Starting on Fri08/27/23 at 1025, Until Discontinu ed, Routine, Pain (scale 4-6), PACU [facility] acute hospital ondansetron (ZOFRAN (PF)) injection 4 mg 08-27 16:25: 22 Yes 4mg 4 mg, Slow IV Push, PRN, 1 dose, Starting on Fri08/27/23 at 1025, Until Discontinu ed, Routine, Nausea and Vomiting (N/V), PACU [facility] acute hospital acetaminoph en ADULT (OFIRMEV) injection 1,000 mg 08-27 16:25: 22 08-28 16:24 :22 No 1000mg 1,000 mg, IV Infusion, at 400 mL/hr Administer over 15 Minutes, PRN, 1 dose, Starting on Fri08/27/23 at 1025, Until Ratna 08/28/23 at 1024, Routine, Pain (scale 1-3), PACU
In dication: Strict NPO and unable to tolerate oral medication s General acute hospital neomycin-po lymyxin-dex amethasone (MAXITROL) 3.5 mg/g-10,000 unit/g-0.1 % ophthalmic ointment 08-27 16:21: 00 08-27 16:29 :45 No PRN, Starting on Fri08/27/23 at 1021, Until Fri08/27/23 at 1029, Routine, [facility] sodium chloride (NS) [facility] 08-27 16:20: 00 08-27 16:29 :45 No PRN, Starting on Fri08/27/23 at 1020, Until Fri08/27/23 at 1029, Routine, Intra-op [facility] dexamethaso ne (DECADRON PHOSPHATE) injection 08-27 16:20: 00 08-27 16:29 :45 No PRN, Starting on Fri08/27/23 at 1020, Until Fri08/27/23 at 1029, Routine, [facility] ceFAZolin (ANCEF) injection 08-27 16:20: 00 08-27 16:29 :45 No PRN, Starting on Fri08/27/23 at 1020, Until Fri08/27/23 at 1029, KAMRAN, Intra-op [facility] carbachoL (MIOSTAT) 0.01 % intraocular injection 08-27 16:20: 00 08-27 16:29 :45 No PRN, Starting on Fri08/27/23 at 1020, Until Fri08/27/23 at 1029, Routine, Intra-op [facility] EPINEPHrine 1:1,000 (1 mg/mL) (ADRENALIN) injection 08-27 16:10: 00 08-27 16:29 :45 No PRN, Starting on Fri08/27/23 at 1010, Until Fri08/27/23 at 1029, Routine, Intra-op [facility] balanced salt irrig soln comb1 (BSS PLUS) ophthalmic solution 500 mL bag 08-27 16:10: 00 08-27 16:29 :45 No PRN, Starting on Fri08/27/23 at 1010, Until Fri08/27/23 at 1029, Routine, Intra-op [facility] chondroitin sulf-sod hyaluronate (DUOVISC VISCO ELASTIC) intraocular injection 08-27 16:10: 00 08-27 16:29 :45 No PRN, Starting on Fri08/27/23 at 1010, Until Fri08/27/23 at 1029, Routine, Intra-op [facility] water for irrigation irrigation solution 08-27 16:03: 00 08-27 16:29 :45 No PRN, Starting on Fri08/27/23 at 1003, Until Fri08/27/23 at 1029, Routine, Intra-op [facility] Hyaluronida se, Human Recomb. (HYLENEX) injection 08-27 15:59: 00 08-27 16:29 :45 No PRN, Starting on Fri08/27/23 at 0959, Until Fri08/27/23 at 1029, Routine, Intra-op [facility] eye block syringe 11 mL 08-27 15:59: 00 08-27 16:29 :45 No PRN, Starting on Fri08/27/23 at 0959, Until Fri08/27/23 at 1029, Intra-op [facility] cyclopent 1%-tropic 1%-phenyl 2.5%-ketor 0.5% (MYDRIATIC #5) ophthalmic solution syringe 0.5 mL 08-27 14:45: 00 08-27 14:42 :00 No .5mL 0.5 mL, Right Eye, ONCE, 1 dose, On Fri08/27/23 at 0845, Routine, DSU Pre-op [facility] lactated ringers IV infusion 1,000 mL 08-27 14:45: 00 08-27 14:56 :00 No 1000mL at 42 mL/hr, 1,000 mL, IV Infusion, ONCE, 1 dose, On Fri08/27/23 at 0845, Routine, DSU Pre-op [facility] losartan potassium (LOSARTAN ORAL) 08-27 10:56: 16 Yes 25mg Take 25 mg by mouth in the morning. [facility] metformin HCl (METFORMIN ORAL) 08-27 10:56: 16 Yes 500mg Take 500 mg by mouth in the morning and 500 mg in the evening. [facility] acute hospital famotidine 20 mg tablet 08-27 10:56: 16 Yes at bedtime. [facility] acute hospital benzonatate 100 mg capsule 08-27 10:56: 16 Yes 100mg Take 1 capsule by mouth every 8 (eight) hours as needed. [facility] acute hospital DULoxetine 20 mg capsule 08-27 10:56: 16 Yes 20mg Take 1 capsule by mouth as needed. [facility] acute hospital HYDROcodone -acetaminop hen 7.5-325 mg per tablet 08-27 10:56: 16 Yes 1{tbl} Take 1 tablet by mouth every 8 (eight) hours as needed. [facility] acute hospital montelukast 10 mg tablet 08-27 10:56: 16 Yes 10mg Take 1 tablet by mouth as needed. [facility] acute hospital pregabalin 75 mg capsule 08-27 10:56: 16 Yes 75mg Take 1 capsule by mouth 2 (two) times daily as needed. [facility] acute hospital neomycin-po lymyxin-dex amethasone (MAXITROL) 3.5 mg/g-10,000 unit/g-0.1 % ophthalmic ointment 2022-08 16:34: 00 06-11 16:53 :33 No PRN, Starting on Fri06/11/23 at 1134, Until Fri06/11/23 at 1153, Routine, Intra-op [facility] acute hospital sodium chloride (NS) injection 2022-08 16:32: 00 06-11 16:53 :33 No PRN, Starting on Fri06/11/23 at 1132, Until Fri06/11/23 at 1153, Routine, Intra-op [facility] acute hospital dexamethaso ne (DECADRON PHOSPHATE) injection 2022-08 16:32: 00 06-11 16:53 :32 No PRN, Starting on Fri06/11/23 at 1132, Until Fri06/11/23 at 1153, Routine, Intra-op [facility] ceFAZolin (ANCEF) injection 2022-08 16:32: 00 06-11 16:53 :32 No PRN, Starting on Fri06/11/23 at 1132, Until Fri06/11/23 at 1153, KAMRAN, Intra-op [facility] carbachoL (MIOSTAT) 0.01 % intraocular injection 2022-08 16:31: 00 06-11 16:53 :32 No PRN, Starting on Fri06/11/23 at 1131, Until Fri06/11/23 at 1153, Routine, Intra-op [facility] EPINEPHrine 1:1,000 (1 mg/mL) (ADRENALIN) injection 2022-08 16:20: 00 06-11 16:53 :32 No PRN, Starting on Fri06/11/23 at 1120, Until Fri06/11/23 at 115, Routine, Intra-op [facility] chondroitin sulf-sod hyaluronate (DUOVISC VISCO ELASTIC) intraocular injection 2022-08 16:20: 00 06-11 16:53 :32 No PRN, Starting on Fri06/11/23 at 1120, Until Fri06/11/23 at 1153, Routine, Intra-op [facility] balanced salt irrig soln comb1 (BSS PLUS) ophthalmic solution 500 mL bag 2022-08 16:20: 00 06-11 16:53 :32 No PRN, Starting on Fri06/11/23 at 1120, Until Fri06/11/23 at 1153, Routine, Intra-op [facility] water for irrigation irrigation solution 2022-08 16:16: 00 06-11 16:53 :32 No PRN, Starting on Fri06/11/23 at 1116, Until Fri06/11/23 at 1153, Routine, Intra-op [facility] Hyaluronida se, Human Recomb. (HYLENEX) injection 2022-08 16:12: 00 06-11 16:53 :32 No PRN, Starting on Fri06/11/23 at 1112, Until Fri06/11/23 at 1153, Routine, Intra-op [facility] acute hospital eye block syringe 11 mL 2022-08 16:12: 00 06-11 16:53 :32 No PRN, Starting on Fri06/11/23 at 1112, Until Fri06/11/23 at 1153, Intra-op [facility] acute hospital cyclopent 1%-tropic 1%-phenyl 2.5%-ketor 0.5% (MYDRIATIC #5) ophthalmic solution syringe 0.5 mL 2022-08 15:00: 00 06-11 15:02 :00 No .5mL 0.5 mL, Left Eye, ONCE, 1 dose, On Fri06/11/23 at 1000, Routine, DSU Pre-op [facility] acute hospital lactated ringers IV infusion 1,000 mL 2022-08 15:00: 00 06-11 15:02 :00 No 1000mL at 42 mL/hr, 1,000 mL, IV Infusion, ONCE, 1 dose, On Fri06/11/23 at 1000, Routine, DSU Pre-op [facility] acute hospital losartan potassium (LOSARTAN ORAL) 2022-08 12:14: 37 Yes Take by mouth daily. [facility] acute hospital famotidine 20 mg tablet 2022-08 12:14: 37 Yes at bedtime. [facility] acute hospital famotidine 20 mg tablet 2022-08 11:36: 09 Yes at bedtime. [facility] acute hospital losartan potassium (LOSARTAN ORAL) 2022-08 11:32: 25 Yes Take by mouth daily. [facility] acute hospital FENTanyl PF (SUBLIMAZE (PF)) injection 75 mcg 01-13 22:15: 00 01-13 21:20 :00 No 75ug 75 mcg, Intramuscu lar, ONCE, 1 dose, On Fri01/13/23 at 1715, STAT [facility] acute hospital ketorolac (TORADOL) injection 15 mg 01-13 22:15: 00 01-13 21:19 :00 No 15mg 15 mg, Intramuscu lar, ONCE, 1 dose, On Fri01/13/23 at 1715, KAMRAN [facility] acute hospital HYDROcodone -acetaminop hen (NORCO) 7.5-325 mg per tablet 01-13 00:00: 00 01-21 04:59 :00 No 4647 1{tbl} Take 1 tablet by mouth every 8 (eight) hours as needed for Pain for up to 7 days. Indication s: acute pain General acute hospital losartan potassium (LOSARTAN ORAL) 2017-08 15:38: 18 Yes Take by mouth. [facility] acute hospital ondansetron (ZOFRAN) 8 mg tablet 2017-08 00:00: 00 Yes 8mg Take 1 tablet by mouth every 8 (eight) hours as needed for Nausea and Vomiting (N/V). [facility] acute hospital Ozempic (1 MG/DOSE) 4 MG/3ML Ozempic (1 MG/DOSE) 4 MG/3ML No Ozempic (1 MG/DOSE) 4 MG/3ML Losartan Potassium 25 MG Losartan Potassium 25 MG No Losartan Potassium 25 MG Estradiol 0.5 MG Estradiol 0.5 MG No Estradiol 0.5 MG hydroCHLORO thiazide 25 MG hydroCHLORO thiazide 25 MG No hydroCHLOR Othiazide 25 MG Atorvastati n Calcium 10 MG Atorvastati n Calcium 10 MG No Atorvastat in Calcium 10 MG metFORMIN HCl 500 MG metFORMIN HCl 500 MG No metFORMIN HCl 500 MG Cyclobenzap rine HCl 10 MG Cyclobenzap rine HCl 10 MG No Cyclobenza colin HCl 10 MG atorvastati n 10 mg tablet TAKE ONE (1) TABLET BY MOUTH ONCE DAILY AT BEDTIME. atorvastati n 10 mg tablet TAKE ONE (1) TABLET BY MOUTH ONCE DAILY AT BEDTIME. No atorvastat in 10 mg tablet TAKE ONE (1) TABLET BY MOUTH ONCE DAILY AT BEDTIME. [facility] cyclobenzap rine 10 mg tablet TAKE ONE (1) TABLET(S) BY MOUTH AT BEDTIME NEEDED. cyclobenzap rine 10 mg tablet TAKE ONE (1) TABLET(S) BY MOUTH AT BEDTIME NEEDED. No cyclobenza colin 10 mg tablet TAKE ONE (1) TABLET(S) BY MOUTH AT BEDTIME NEEDED. [facility] estradiol 0.5 mg tablet TAKE ONE (1) TABLET(S) BY MOUTH ONCE A DAY. estradiol 0.5 mg tablet TAKE ONE (1) TABLET(S) BY MOUTH ONCE A DAY. No estradiol 0.5 mg tablet TAKE ONE (1) TABLET(S) BY MOUTH ONCE A DAY. [facility] hydrochloro thiazide 25 mg tablet TAKE ONE (1) TABLET(S) BY MOUTH ONCE A DAY. hydrochloro thiazide 25 mg tablet TAKE ONE (1) TABLET(S) BY MOUTH ONCE A DAY. No hydrochlor othiazide 25 mg tablet TAKE ONE (1) TABLET(S) BY MOUTH ONCE A DAY. [facility] losartan 25 mg tablet TAKE ONE (1) TABLET(S) BY MOUTH ONCE A DAY. losartan 25 mg tablet TAKE ONE (1) TABLET(S) BY MOUTH ONCE A DAY. No losartan 25 mg tablet TAKE ONE (1) TABLET(S) BY MOUTH ONCE A DAY. [facility] metformin 500 mg tablet TAKE ONE (1) TABLET(S) BY MOUTH TWICE A DAY WITH MEALS. metformin 500 mg tablet TAKE ONE (1) TABLET(S) BY MOUTH TWICE A DAY WITH MEALS. No metformin 500 mg tablet TAKE ONE (1) TABLET(S) BY MOUTH TWICE A DAY WITH MEALS. [facility] ibuprofen 800 mg tablet TAKE ONE (1) TABLET(S) BY MOUTH THREE TIMES A DAY. ibuprofen 800 mg tablet TAKE ONE (1) TABLET(S) BY MOUTH THREE TIMES A DAY. No 1 TID ibuprofen 800 mg tablet TAKE ONE (1) TABLET(S) BY MOUTH THREE TIMES A DAY. [facility] duloxetine 20 mg capsule,del ayed release TAKE ONE (1) CAPSULE(S) BY MOUTH DAILY. duloxetine 20 mg capsule,del ayed release TAKE ONE (1) CAPSULE(S) BY MOUTH DAILY. No 1capsul e(s) Q1D duloxetine 20 mg capsule,de layed release TAKE ONE (1) CAPSULE(S) BY MOUTH DAILY. [facility] omeprazole 20 mg capsule,del ayed release TAKE ONE (1) CAPSULE(S) BY MOUTH ONCE A DAY. omeprazole 20 mg capsule,del ayed release TAKE ONE (1) CAPSULE(S) BY MOUTH ONCE A DAY. No 1capsul e(s) Q1D omeprazole 20 mg capsule,de layed release TAKE ONE (1) CAPSULE(S) BY MOUTH ONCE A DAY. [facility] Ozempic 0.25 mg or 0.5 mg (2 mg/1.5 mL) subcutaneou s pen injector INJECT 0.25 MG UNDER THE SKIN ONCE EVERY WEEK. Ozempic 0.25 mg or 0.5 mg (2 mg/1.5 mL) subcutaneou s pen injector INJECT 0.25 MG UNDER THE SKIN ONCE EVERY WEEK. No .25mg Q1W Ozempic 0.25 mg or 0.5 mg (2 mg/1.5 mL) subcutaneo us pen injector INJECT 0.25 MG UNDER THE SKIN ONCE EVERY WEEK. [facility] promethazin e-DM 6.25 mg-15 mg/5 mL oral syrup TAKE TEN MLS BY MOUTH THREE TIMES DAILY NEEDED FOR TEN DAYS. promethazin e-DM 6.25 mg-15 mg/5 mL oral syrup TAKE TEN MLS BY MOUTH THREE TIMES DAILY NEEDED FOR TEN DAYS. No 10mL TID promethazi ne-DM 6.25 mg-15 mg/5 mL oral syrup TAKE TEN MLS BY MOUTH THREE TIMES DAILY NEEDED FOR TEN DAYS. [facility] Ozempic 0.25 mg or 0.5 mg (2 mg/3 mL) subcutaneou s pen injector INJECT 0.5 MG SUBCUTANEOU SLY WEEKLY. Ozempic 0.25 mg or 0.5 mg (2 mg/3 mL) subcutaneou s pen injector INJECT 0.5 MG SUBCUTANEOU SLY WEEKLY. No .5mg Q1W Ozempic 0.25 mg or 0.5 mg (2 mg/3 mL) subcutaneo us pen injector INJECT 0.5 MG SUBCUTANEO USLY WEEKLY. [facility] pregabalin 75 mg capsule TAKE ONE (1) CAPSULE(S) BY MOUTH AT BEDTIME. pregabalin 75 mg capsule TAKE ONE (1) CAPSULE(S) BY MOUTH AT BEDTIME. No 1capsul e(s) Q1D pregabalin 75 mg capsule TAKE ONE (1) CAPSULE(S) BY MOUTH AT BEDTIME. [facility] ketorolac 0.5 % eye drops INSTILL ONE (1) DROP(S) IN LEFT EYE TWICE A DAY FOR 2 WEEKS. ketorolac 0.5 % eye drops INSTILL ONE (1) DROP(S) IN LEFT EYE TWICE A DAY FOR 2 WEEKS. No ketorolac 0.5 % eye drops INSTILL ONE (1) DROP(S) IN LEFT EYE TWICE A DAY FOR 2 WEEKS. [facility] L-Methylfol ate once weekly L-Methylfol ate once weekly No L-Methylfo late once weekly [facility] ofloxacin 0.3 % eye drops INSTILL ONE (1) DROP(S) IN LEFT EYE THE NIGHT BEFORE AND MORNING OF SUGERY, THEN THREE TIMES A DAY FOR 1 WEEK. ofloxacin 0.3 % eye drops INSTILL ONE (1) DROP(S) IN LEFT EYE THE NIGHT BEFORE AND MORNING OF SUGERY, THEN THREE TIMES A DAY FOR 1 WEEK. No ofloxacin 0.3 % eye drops INSTILL ONE (1) DROP(S) IN LEFT EYE THE NIGHT BEFORE AND MORNING OF SUGERY, THEN THREE TIMES A DAY FOR 1 WEEK. [facility] Ozempic 1 mg/dose (4 mg/3 mL) subcutaneou s pen injector INJECT ONE (1) MG UNDER THE SKIN EVERY WEEK. Ozempic 1 mg/dose (4 mg/3 mL) subcutaneou s pen injector INJECT ONE (1) MG UNDER THE SKIN EVERY WEEK. No 1mg Q1W Ozempic 1 mg/dose (4 mg/3 mL) subcutaneo us pen injector INJECT ONE (1) MG UNDER THE SKIN EVERY WEEK. [facility] prednisolon e acetate 1 % eye drops,suspe nsion INSTILL ONE (1) DROP(S) IN LEFT EYE THREE TIMES A DAY FOR 1 WEEK, THEN TWICE A DAY FOR 1 WEEK, THEN ONCE A DAY FOR 2 WEEKS. prednisolon e acetate 1 % eye drops,suspe nsion INSTILL ONE (1) DROP(S) IN LEFT EYE THREE TIMES A DAY FOR 1 WEEK, THEN TWICE A DAY FOR 1 WEEK, THEN ONCE A DAY FOR 2 WEEKS. No prednisolo ne acetate 1 % eye drops,susp ension INSTILL ONE (1) DROP(S) IN LEFT EYE THREE TIMES A DAY FOR 1 WEEK, THEN TWICE A DAY FOR 1 WEEK, THEN ONCE A DAY FOR 2 WEEKS. [facility] Immunizations Ordered Immunization Name Filled Immunization Name Date Status Comments Source COVID-19, mRNA, LNP-S, bivalent booster, PF, 30 mcg/0.3 mL dose (Pfizer-BioNTech) - ML COVID-19, mRNA, LNP-S, bivalent booster, PF, 30 mcg/0.3 mL dose (Pfizer-BioNTech) - ML Unknown Completed [facility] COVID-19, mRNA, LNP-S, PF, 30 mcg/0.3 mL dose (Pfizer-BioNTech) COVID-19, mRNA, LNP-S, PF, 30 mcg/0.3 mL dose ([employer]) Unknown Completed [facility] COVID-19 vaccine, vector-nr, rS-Ad26, PF, 0.5 mL (Juanita) - ML COVID-19 vaccine, vector-nr, rS-Ad26, PF, 0.5 mL (Applits) - ML Unknown Completed [facility] Vital Signs Vital Name Observation Time Observation Value Comments S ource BP Systolic 2024-04-09 00:00:00 111 mm[Hg] [facility] Height 2024-04-09 00:00:00 64 [in_i] [place] Body Weight 2024-04-09 00:00:00 175 [lb_av] [facility] BP Diastolic 2024-04-09 00:00:00 71 mm[Hg] [facility] BMI (Body Mass Index) 2024-04-09 00:00:00 30 kg/m2 [facility] Systolic blood pressure 2024-04-02 15:00:00 120 mm[Hg] [facility] Diastolic blood pressure 2024-04-02 15:00:00 70 mm[Hg] [facility] Heart rate 2024-04-02 15:00:00 87 /min [facility] Body temperature 2024-04-02 15:00:00 37.11 [facility] Respiratory rate 2024-04-02 15:00:00 18 /min [facility] Body height 2024-04-02 15:00:00 160 cm [facility] Body weight 2024-04-02 15:00:00 78.019 kg [facility] BMI 2024-04-02 15:00:00 30.47 kg/m2 [facility] Oxygen saturation in Arterial blood by Pulse oximetry 2024-04-02 15:00:00 100 /min [facility] height 2024-03-17 14:15:00 64 [in_i] [facility] weight-kg 2024-03-17 14:15:00 74.84 kg [facility] bmi 2024-03-17 14:15:00 28.32 kg/m2 Maggie r [facility] heart rate 2024-03-17 14:15:00 80 /min [facility] blood pressure systolic 2024-03-17 14:15:00 119 mm[Hg] [facility] blood pressure diastolic 2024-03-17 14:15:00 85 mm[Hg] [facility] Heart rate 2023-08-27 16:44:00 71 /min [facility] Body temperature 2023-08-27 16:44:00 36.56 [facility] Respiratory rate 2023-08-27 16:44:00 12 /min [facility] Oxygen saturation in Arterial blood by Pulse oximetry 2023-08-27 16:44:00 100 /min [facility] Systolic blood pressure 2023-08-27 16:40:00 103 mm[Hg] [facility] Diastolic blood pressure 2023-08-27 16:40:00 65 mm[Hg] [facility] Body height 2023-08-27 14:43:00 162.6 cm [facility] Body weight 2023-08-27 14:43:00 83.462 kg [facility] BMI 2023-08-27 14:43:00 31.58 kg/m2 [facility] Systolic blood pressure 2023-08-27 14:43:00 122 mm[Hg] [facility] Diastolic blood pressure 2023-08-27 14:43:00 81 mm[Hg] [facility] Heart rate 2023-08-27 14:43:00 78 /min [facility] Body temperature 2023-08-27 14:43:00 36.17 [facility] Respiratory rate 2023-08-27 14:43:00 18 /min [facility] Body height 2023-08-27 14:43:00 162.6 cm [facility] Body weight 2023-08-27 14:43:00 83.462 kg [facility] BMI 2023-08-27 14:43:00 31.58 kg/m2 [facility] Oxygen saturation in Arterial blood by Pulse oximetry 2023-08-27 14:43:00 99 /min [facility] BP Systolic 2023-08-19 00:00:00 132 mm[Hg] [facility] Height 2023-08-19 00:00:00 64 [in_i] [facility] BMI (Body Mass Index) 2023-08-19 00:00:00 31.7 kg/m2 [facility] BP Diastolic 2023-08-19 00:00:00 83 mm[Hg] [facility] Body Weight 2023-08-19 00:00:00 184.4 [lb_av] [facility] Systolic blood pressure 2023-06-11 14:57:00 117 mm[Hg] [facility] Diastolic blood pressure 2023-06-11 14:57:00 79 mm[Hg] [facility] Heart rate 2023-06-11 14:57:00 87 /min [facility] Body temperature 2023-06-11 14:57:00 36.89 [facility] Respiratory rate 2023-06-11 14:57:00 14 /min [facility] Oxygen saturation in Arterial blood by Pulse oximetry 2023-06-11 14:57:00 100 /min [facility] Body height 2023-06-03 16:45:00 162.6 cm [facility] Body weight 2023-06-03 16:45:00 77.565 kg [facility] BMI 2023-06-03 16:45:00 29.35 kg/m2 [facility] BP Diastolic 2023-01-22 00:00:00 80 mm[Hg] [facility] Height 2023-01-22 00:00:00 64 [in_i] [facility] BMI (Body Mass Index) 2023-01-22 00:00:00 31.3 kg/m2 [facility] BP Systolic 2023-01-22 00:00:00 119 mm[Hg] [facility] Body Weight 2023-01-22 00:00:00 182.2 [lb_av] [facility] Systolic blood pressure 2023-01-13 20:45:00 126 mm[Hg] [facility] Diastolic blood pressure 2023-01-13 20:45:00 81 mm[Hg] [facility] Heart rate 2023-01-13 20:45:00 95 /min [facility] Body temperature 2023-01-13 20:45:00 37.11 [facility] Respiratory rate 2023-01-13 20:45:00 18 /min [facility] Body height 2023-01-13 20:45:00 160 cm [facility] Body weight 2023-01-13 20:45:00 79.833 kg [facility] BMI 2023-01-13 20:45:00 31.18 kg/m2 [facility] Oxygen saturation in Arterial blood by Pulse oximetry 2023-01-13 20:45:00 99 /min [facility] BP Diastolic 2022-10-08 00:00:00 82 mm[Hg] [facility] Height 2022-10-08 00:00:00 64 [in_i] [facility] BMI (Body Mass Index) 2022-10-08 00:00:00 31.4 kg/m2 [facility] BP Systolic 2022-10-08 00:00:00 119 mm[Hg] [facility] Body Weight 2022-10-08 00:00:00 183 [lb_av] [facility] BP Diastolic 2022-07-09 00:00:00 80 mm[Hg] [facility] Height 2022-07-09 00:00:00 64 [in_i] [facility] BMI (Body Mass Index) 2022-07-09 00:00:00 33.1 kg/m2 [facility] BP Systolic 2022-07-09 00:00:00 128 mm[Hg] [facility] Body Weight 2022-07-09 00:00:00 193 [lb_av] [facility] BP Diastolic 2022-05-22 00:00:00 77 mm[Hg] [facility] Height 2022-05-22 00:00:00 64 [in_i] [facility] BMI (Body Mass Index) 2022-05-22 00:00:00 33.5 kg/m2 [facility] BP Systolic 2022-05-22 00:00:00 119 mm[Hg] [facility] Body Weight 2022-05-22 00:00:00 195 [lb_av] [facility] BP Diastolic 2022-05-08 00:00:00 80 mm[Hg] [facility] Height 2022-05-08 00:00:00 64 [in_i] [facility] BMI (Body Mass Index) 2022-05-08 00:00:00 32.6 kg/m2 [facility] BP Systolic 2022-05-08 00:00:00 121 mm[Hg] [facility] Body Weight 2022-05-08 00:00:00 190 [lb_av] [facility] BP Diastolic 2022-04-10 00:00:00 86 mm[Hg] [facility] Height 2022-04-10 00:00:00 64 [in_i] [facility] BMI (Body Mass Index) 2022-04-10 00:00:00 33.1 kg/m2 [facility] BP Systolic 2022-04-10 00:00:00 124 mm[Hg] [facility] Body Weight 2022-04-10 00:00:00 193 [lb_av] [facility] BP Diastolic 2021 00:00:00 82 mm[Hg] [facility] Height 2021 00:00:00 64 [in_i] [facility] BMI (Body Mass Index) 2021 00:00:00 31.8 kg/m2 [facility] BP Systolic 2021 00:00:00 126 mm[Hg] [facility] Body Weight 2021 00:00:00 185 [lb_av] [facility] BP Diastolic 2021-08-28 00:00:00 80 mm[Hg] [facility] Height 2021-08-28 00:00:00 64 [in_i] [facility] BMI (Body Mass Index) 2021-08-28 00:00:00 33.6 kg/m2 [facility] BP Systolic 2021-08-28 00:00:00 130 mm[Hg] [facility] Body Weight 2021-08-28 00:00:00 195.8 [lb_av] [facility] BP Diastolic 2021-04-25 00:00:00 78 mm[Hg] [facility] Height 2021-04-25 00:00:00 64 [in_i] [facility] BMI (Body Mass Index) 2021-04-25 00:00:00 32.2 kg/m2 [facility] BP Systolic 2021-04-25 00:00:00 115 mm[Hg] [facility] Body Weight 2021-04-25 00:00:00 187.4 [lb_av] [facility] Procedures Procedure Date / Time Performed Performing Clinician Source PHACOEMULSIFICATION OF CATARACT WITH INTRAOCULAR LENS IMPLANT 2023-08-27 15:47:00 Kaleb Mandujano [facility] POCT GLUCOSE (AUTOMATED) 2023-08-27 14:54:00 Kaleb Mandujano [facility] POCT GLUCOSE (AUTOMATED) 2023-08-27 14:54:00 Kaleb Mandujano [facility] DAY SURGERY - ADC 2023-08-27 06:01:00 Doctor Unassigned, Lynden [facility] EXTERNAL PROVIDER RECORDS 2023-08-25 06:01:00 Doctor Unassigned, Lynden [facility] EXTERNAL PROVIDER RECORDS 2023-08-19 06:01:00 Doctor Unassigned, Lynden [facility] PHACOEMULSIFICATION OF CATARACT WITH INTRAOCULAR LENS IMPLANT 2023-06-11 16:01:00 Kaleb Mandujano [facility] POCT GLUCOSE (AUTOMATED) 2023-06-11 15:00:00 Kaleb Mandujano [facility] CONSENT/REFUSAL FOR DIAGNOSI S AND TREATMENT 2023-06-04 21:32:55 Doctor Unassigned, Lynden [facility] NO SHOW OR MISSED APPOINTMEN T POLICY ACKNOWLEDGEMENT 2023-05-29 16:33:38 Doctor Unassigned, Lynden [facility] PATIENT FINANCIAL POLICY 2023-05-29 16:33:04 Doctor Unassigned, Lynden [facility] CONSENT/REFUSAL FOR DIAGNOSI S AND TREATMENT 2023-05-29 16:32:43 Doctor Unassigned, Lynden [facility] ASSIGNMENT OF BENEFITS 2023-05-29 16:32:25 Doctor Unassigned, Lynden [facility] CONSENT/REFUSAL FOR DIAGNOSI S AND TREATMENT 2023-01-13 20:39:01 Doctor Unassigned, Lynden [facility] MAMMO, screening, digital, bilateral 2022-04-10 00:00:00 [facility] DEXA, axial skeleton 2022-04-10 00:00:00 [facility] MAMMO, screening, digital, bilateral 2021 00:00:00 [facility] DEXA, axial skeleton 2021 00:00:00 [facility] X-RAY OF CHEST 2 VIEW 2021-08-28 00:00:00 [facility] DEXA 2021-04-25 00:00:00 [facility] Hysterectomy (Total) 2006-09-18 00:00:00 [facility] Encounters Start Date/Time End Date/Time Encounter Type Admission Type Attending [facility] Care Facility Care Department Encounter ID Source 2024-03-23 15:56:00 Outpatient Divya-Will is, Marjan [facility] [id number] [facility] 2024-03-17 14:01:01 Outpatient Divya-Will isMarjan [facility] [id number] [facility] 2024-04-09 00:00:00 2024-04-09 00:00:00 Marjan dover MD: [id number] [facility], [address], [place] [address] , Ph. [facility] [place] - [facility] - [place] - VM_HOU_Shad [place] [id number] [facility] e 2024-04-02 10:02:00 2024-04-02 11:55:00 Emergency X ANTONIO JACKSON [facility] ERT [id number] General acute hospital 2024-04-02 10:02:00 2024-04-02 11:55:00 Emergency Antonio Jackson [facility] 1.2840.114 350.1.13.10 4.2.7.2.686 [id number] General acute hospital 2024-03-18 00:00:00 2024-03-18 00:00:00 (TEL) CLS CLS [id number] [facility] 2024-03-17 00:00:00 2024-03-17 00:00:00 Office Visit- Est Pt.- Level 4 CLS CLS [id number] [facility] 2023-10-12 00:00:00 2023-10-12 00:00:00 Outpatient Claudia FENG VFP VFP [id number] [facility] 2023-08-27 08:31:00 2023-08-27 10:50:00 Outpatient R KALEB MANDUJANO [facility] OPH [id number] General acute hospital 2023-08-27 08:31:00 2023-08-27 10:50:00 Hospital Encounter Kaleb Mandujano [facility] [place] 1..114 350.1.13.10 4.2.7.2.686 [id number] General acute hospital 2023-08-27 09:32:00 2023-08-27 10:07:00 Surgery Kaleb Mandujano [facility] [place] 1.0.114 350.1.13.10 4.2.7.2.686 [id number] General acute hospital 2023-08-27 00:00:00 2023-08-27 00:00:00 Orders Only Doctor Unassigned, Lynden [facility] 1.2840.114 350.1.13.10 4.2.7.2.686 [id number] General acute hospital 2023-08-25 00:00:00 2023-08-25 00:00:00 Orders Only Doctor Unassigned, Lynden [facility] 1.840.114 350.1.13.10 4.2.7.2.686 [id number] General acute hospital 2023-08-19 00:00:00 2023-08-19 00:00:00 Outpatient Claudia FENG VFP VFP [id number] [facility] 2023-08-19 00:00:00 2023-08-19 00:00:00 Orders Only Doctor Unassigned, Lynden [facility] 1.840.114 350.1.13.10 4.2.7.2.686 [id number] General acute hospital 2023-08-19 00:00:00 2023-08-19 00:00:00 Marjan dover MD: [id number] [facility], [address], [place] [address] , Ph. [place] - [facility] - [place] - LILLIAN_BEATRICE_Florentino [facility] [id number] [facility] 2023-07-17 00:00:00 2023-07-17 00:00:00 Outpatient VFP VFP [id number] [facility] 2023-07-17 00:00:00 2023-07-17 00:00:00 Outpatient VFP VFP [id number] [facility] 2023-06-11 09:45:00 2023-06-11 12:12:00 Outpatient KALEB RUIZ [facility] OPH [id number] General acute hospital 2023-06-11 10:47:00 2023-06-11 11:22:[address] [facility] 1..840.114 350.1.13.10 4.2.7.2.686 [id number] General acute hospital 2023-06-04 00:00:00 2023-06-04 00:00:00 Orders Only Doctor Unassigned, Lynden [facility] 1.2.840.114 350.1.13.10 4.2.7.2.686 [id number] General acute hospital 2023-04-25 00:00:00 2023-04-25 00:00:00 Outpatient VFP VFP [id number] [facility] 2023-01-28 00:00:00 2023-01-28 00:00:00 Outpatient Divya-Will is_T VFP VFP [id number] [facility] 2023-01-22 00:00:00 2023-01-22 00:00:00 Marjan Stokes-Caleb dover MD: [id number] [facility], [address], [place] [address] , Ph. [place] [facility] - [place] VM_HOU_Raghavkyle [facility] [id number] [facility] 2023-01-21 00:00:00 2023-01-21 00:00:00 Outpatient Divya-Will is_T VFP VFP [id number] [facility] 2023-01-21 00:00:00 2023-01-21 00:00:00 Outpatient Divya-Will is_T VFP VFP [id number] [facility] 2023-01-13 15:46:00 2023-01-13 17:22:00 Emergency X DUSTIN HERRING [facility] ERT [id number] General acute hospital 2023-01-13 15:46:00 2023-01-13 17:22:00 Emergency Dustin Herring [facility] 1.2.840.114 350.1.13.10 4.2.7.2.686 [id number] General acute hospital 2022-12-29 00:00:00 2022-12-29 00:00:00 Outpatient Divya-Will is_T VFP VFP [id number] [facility] 2022-11-24 00:00:00 2022-11-24 00:00:00 Outpatient Divya-Will is_T VFP VFP [id number] [facility] 2022-10-08 00:00:00 2022-10-08 00:00:00 Outpatient Divya-Will is_T VFP VFP [id number] [facility] 2022-10-08 00:00:00 2022-10-08 00:00:00 Outpatient Divya-Will is_T VFP VFP [id number] [facility] 2022-10-08 00:00:00 2022-10-08 00:00:00 Marjan dover MD: [id number], [address] [address] , Ph. [place] [facility] [place] VM_HOU_[place] [id number] [facility] 2022-09-21 00:00:00 2022-09-21 00:00:00 Outpatient Divya-Will is_T VFP VFP [id number] [facility] 2022-08-17 00:00:00 2022-08-17 00:00:00 Outpatient Divya-Will is_T VFP VFP [id number] [facility] 2022-07-13 00:00:00 2022-07-13 00:00:00 Outpatient Divya-Will is_T VFP VFP [id number] [facility] 2022-07-09 00:00:00 2022-07-09 00:00:00 Marjan dover MD: [id number], [address], [place] [address] , Ph. [place] [facility] [place] VM_HOU_[place] [id number] [facility] 2022-07-05 00:00:00 2022-07-05 00:00:00 Outpatient Divya-Will is_T VFP VFP [id number] [facility] 2022-06-08 00:00:00 2022-06-08 00:00:00 Outpatient Divya-Will is_T VFP VFP [id number] [facility] 2022-06-01 00:00:00 2022-06-01 00:00:00 Outpatient Divya-Will is_T VFP VFP [id number] [facility] 2022-05-22 00:00:00 2022-05-22 00:00:00 Marjan dover MD: [id number] [facility] [address], [address] [address] , [place]. [place] [facility] [place] VM_[place] [id number] [facility] 2022-05-17 00:00:00 2022-05-17 00:00:00 Outpatient Divya-Will is_T VFP VFP [id number] [facility] 2022-05-08 00:00:00 2022-05-08 00:00:00 Outpatient Divya-Will is_T VFP VFP [id number] [facility] 2022-05-08 00:00:00 2022-05-08 00:00:00 Marjan dover MD: [id number] [facility] [address], [address] [address] , [place]. [place] [facility] [place] VM_HOU_[place] [id number] [facility] 2022-04-28 00:00:00 2022-04-28 00:00:00 Outpatient Divya-Will is_T VFP VFP [id number] [facility] 2022-04-11 00:00:00 2022-04-11 00:00:00 Outpatient Divya-Will is_T VFP VFP [id number] [facility] 2022-04-10 00:00:00 2022-04-10 00:00:00 Marjan dover MD: [address], [address], [place] [address] , Ph. DivyaLul is_T [place]FP [place] - [facility] - VM_HOU_Raghavd [place] [id number] [facility] 2022-04-10 00:00:00 2022-04-10 00:00:00 Marjan dover MD: [address] [facility], [address], [place] [address] , Ph. [place] [facility] - VM_HOU_[place] [id number] [facility] 2022-03-26 00:00:00 2022-03-26 00:00:00 Outpatient Kethineni_N VFP VFP [id number] [facility] 2022-03-12 02:41:00 2022-03-12 02:41:00 Outpatient Kethineni_N VFP VFP [id number] [facility] 2022-02-06 04:24:00 2022-02-06 04:24:00 Outpatient Kethineni_N VFP VFP [id number] [facility] 2022-01-01 02:07:00 2022-01-01 02:07:00 Outpatient Kethineni_N VFP VFP [id number] [facility] 2021-12-04 10:22:00 2021-12-04 10:22:00 Outpatient Kethineni_N VFP VFP [id number] [facility] 2021 00:00:00 2021 00:00:00 TEJA Scott: [address], [address], [place] [address] , Ph. Kethineni_N VFP [place] - [facility] - [place] [id number] [facility] 2021-11-18 01:19:00 2021-11-18 01:19:00 Outpatient Kethineni_N VFP VFP [id number] [facility] 2021-10-14 02:12:00 2021-10-14 02:12:00 Outpatient Kethineni_N VFP VFP [id number] [facility] 2021-09-24 01:09:00 2021-09-24 01:09:00 Outpatient GC_CSFC_Ket hineni_N PRIV PRIV [id number] [facility] 2021-09-09 12:56:00 2021-09-09 12:56:00 Outpatient Kethineni_N VFP VFP [id number] [facility] 2021-09-04 01:14:00 2021-09-04 01:14:00 Outpatient Kethineni_N VFP VFP [id number] [facility] 2021-09-03 11:39:00 2021-09-03 11:39:00 Outpatient Kethineni_N VFP VFP [id number] [facility] 2021-08-28 00:00:00 2021-08-28 00:00:00 TEJA Scott: [address] [facility], [address], [place] [address] , Ph. Kethineni_N VFP [place] - [facility] - VM_HOU_[place]ad [place] [id number] [facility] 2021-08-27 01:27:00 2021-08-27 01:27:00 Outpatient GC_CSFC_Ket hineni_N PRIV PRIV [id number] [facility] 2021-07-30 12:41:00 2021-07-30 12:41:00 Outpatient GC_CSFC_Ket hineni_N PRIV PRIV [id number] [facility] 2021-05-30 11:09:00 2021-05-30 11:09:00 Outpatient Kethineni_N VFP VFP [id number] [facility] 2021-05-01 05:43:00 2021-05-01 05:43:00 Outpatient Kethineni_N VFP VFP [id number] [facility] 2021-04-30 05:27:00 2021-04-30 05:27:00 Outpatient Kethineni_N VFP VFP [id number] [facility] 2021-04-25 00:00:00 2021-04-25 00:00:00 Edilma Lynn PA: [address] [facility], [address], [place] [address] , Ph. Kethineni_N VFP [place] - [facility] - VM_HOU_[place] [id number] [facility] 2021-02-21 01:27:00 2021-02-21 01:27:00 Outpatient Kethineni_N VFP VFP [id number] [facility] 2018-08-01 13:07:28 2018-08-01 16:10:00 Emergency X ROMULO ALSTON [facility] ERT [id number] General acute hospital Results Test Description Test Time Test Comments Results Result Co mments Source [facility] 14:55:23* Test Item Value Reference Range Interpretation Comme nts POCT GLU (test code = 9706097458) 100 mg/dL 70-110 Lab Interpretation (test cod e = 32555-0) Normal [facility]Mass Ratio] in Urine 2023-08-20 00:00:00* Test Item Value Reference Range Interpretation Comme nts creatinine random urine (ghanshyam t code = creatinine random urine) 43.2 mg/dL 20.0-320.0 microalbumin random urine (test code = microalbumin random urine) 6 ug/mL microalbumin/creatinine (random urine) ratio calculated (test code = microalbumin/creatinine (random urine) ratio calculated) 14 mcg/mg creat [facility] PracticeComprehensive metabolic 2000 panel - Serum or Plasma 2023-08-20 00:00:00* Test Item Value Reference Range Interpretation Comme nts glucose (test code = glucose) 90 mg/dL 70-99 creatinine (test code = creatinine) 0.75 mg/dL 0.57-1.11 BUN (test code = BUN) 9.8 mg/dL 9.8-25.0 eGFR (test code = eGFR) >60 sodium (test code = sodium) 141 mEq/L 135-145 potassium (test code = potassium) 4.3 mEq/L 3.5-5.3 CO2 (test code = CO2) 26.4 mmol/L 20.0-32.0 chloride (test code = chloride) 104 mmol/L 98-110 anion gap (test code = anion gap) 11 calc calcium (test code = calcium) 9.8 mg/dL 8.4-10.4 total protein (test code = t otal protein) 7.7 g/dL 6.1-8.2 albumin (test code = albumin) 3.9 g/dL 3.4-5.1 total bilirubin (test code = total bilirubin) 0.2 mg/dL 0.2-1.2 L alk phos (test code = alk phos) 78 unit/L 40-150 ALT (test code = ALT) 9 U/L 0-55 AST (test code = AST) 10 U/L 5-34 [facility] 1996 panel - Serum or [id number] 00:00:00* Test Item Value Reference Range Interpretation Comme nts triglyceride (test code = triglyceride) 199 mg/dL <150 H cholesterol (test code = cholesterol) 172 mg/dL <200 HDL (test code = HDL) 57 mg/dL VLDL (calculated) (test code = VLDL (calculated)) 40 mg/dL cholesterol/HDL ratio (test code = cholesterol/HDL ratio) 3.0 mg/dL Cholesterol in LDL [Mass/vol ume] in Serum or Plasma (test code = 2089-1) 75 mg/dL <130 non-HDL cholesterol (calcula aashish) (test code = non-HDL cholesterol (calculated)) 115 mg/dL <160 [facility] A1c/Hemoglobin.total in [id number] 00:00:00* Test Item Value Reference Range Interpretation Comme nts Hemoglobin A1c/Hemoglobin.to candy in Blood (test code = 4548-4) 6.0 % 1.0-5.7 H average blood glucose (calcu lation) (test code = average blood glucose (calculation)) 126 mg/dL [facility]2023-06-11 15:15:26* Test Item Value Reference Range Interpretation Comme [facility] POCT GLU (test code = 2650079312) 107 mg/dL 70-110 Lab Interpretation (test cod e = 12366-5) Normal [facility]Hemoglobin.total in Blood 2022-05-09 00:00:00* Test Item Value Reference Range Interpretation Comme nts Hemoglobin A1c/Hemoglobin.to candy in Blood (test code = 4548-4) 7.0 % 4.8-5.6 H Glucose mean value [Mass/vol ume] in Blood Estimated from glycated hemoglobin (test code = 73167-2) 154 mg/dL [facility] 1996 panel - Serum or [id number] 00:00:00* Test Item Value Reference Range Interpretation Comme nts HDL (test code = HDL) 60 mg/dL triglyceride (test code = triglyceride) 188 mg/dL <150 H VLDL (calculated) (test code = VLDL (calculated)) 38 mg/dL cholesterol/HDL ratio (test code = cholesterol/HDL ratio) 3.8 mg/dL non-HDL cholesterol (calcula aashish) (test code = non-HDL cholesterol (calculated)) 165 mg/dL <160 H cholesterol (test code = cholesterol) 225 mg/dL <200 H Cholesterol in LDL [Mass/vol ume] in Serum or Plasma (test code = 2089-1) 127 mg/dL <130 [facility] [Mass/volume] in Capillary [id number] 16:26:00* Test Item Value Reference Range Interpretation Comme nts Blood Glucose: mg/dl (test c ode = Blood Glucose: mg/dl) 135 [facility] History and Physical Notes Date/Time Note Provider Source 2023-08-27 08:34:23 H&P Update H&P was reviewed and the patient was examined and there was no change in the patient's condition. [facility] - Health Notes Date/Time Note Provider Source 2024-04-02 11:54:52 PT D/C home. GCS15, VS stable, no ataxia noted. Given one prescription and D/C paperwork. Pt pushed in wheelchair by ED staff at time of discharge. Pt educated on hip strain, med usage, follow up care, s/s worsening condition. Pt verbalized understanding. [facility] 2024-04-02 10:00:24 Pt walking dog yesterday when she stepped in a hole. She didn't fall but states the hole "jolted" her. Didn't have pain until last night. Describes it as sharp that radiates down right leg. T Ginna Ocampo RN [facility] 2023-08-20 09:56:02 Images from the original note were not included. Your procedure is at [facility] on 08/27/23. The address is [address] [place] [address], [id number]. [facility] nursing staff will call you the workday before your procedure to let you know what time to arrive.On the day of your procedure, please go inside that door and check in at the desk. Please note: You may not travel home alone and that includes in a taxi or by bus. We must speak to your Responsible Adult (who will be picking you up) the morning of your procedure, before the start of your procedure. This person must be an adult over the age of 18 years of age. Do not eat any solid food after midnight the night before surgery. You may have sips of clear liquids such as water, gatorade, and sprite up until two hours before your scheduled procedure. You may take your medications with a sip of water as directed by physician. Anticoagulants will be per physician guidance. Medication Note(s)/Instructions:Instructions given to hold metformin evening before and morning of surgery and hold HCTZ morning of surgery. Pending screening, we may test for COVID. If a patient tests positive, their cases are cancelled and/or rescheduled. COVID SCREENING NOTE: Denies COVID symptoms, no testing required. Additional requests, questions, concerns:n/a. CB number provided. Patient verbalized understanding of pre-op instructions and voiced no further questions at this time. [facility]
[2024-05-30] MEDS ORDERED: DIAZEPAM 10 MG/2 ML INJ SYRINGE ONE (12:17)
[2024-05-30] MEDS ORDERED: ACETAMINOPHEN 500 MG TAB ONE (12:18)
[2024-05-30] MEDS ORDERED: LIDOCAINE 4% PATCH ONE (12:18)
[2024-05-30] MEDS ORDERED: KETOROLAC 30 MG/ML INJ ONE (12:18)
--- NOTE | 2024-05-30 14:42 | ER ---
Nurse's Notes [facility] Name: Jahaira Coe Age: 68 yrs Sex: Female : 1955 Arrival Date: 05/30/2024 Time: 11:46 Bed 7 Private MD: Diagnosis: Sciatica, right side Presentation: 05/30 11:55 Chief complaint: Patient states: R sided back pain that radiates down R leg for 3 days. ll1 No trauma or falls. Coronavirus screen: Client denies travel out of the [place] in the last 14 days. At this time, the client does not indicate any symptoms associated with coronavirus-19. Ebola Screen: Patient denies travel to an Ebola-affected area in the 21 days before illness onset. Initial Sepsis Screen: Does the patient meet any 2 criteria? No. Patient's initial sepsis screen is negative. Does the patient have a suspected source of infection? No. Patient's initial sepsis screen is negative. Risk Assessment: Do you want to hurt yourself or someone else? Patient reports no desire to harm self or others. Onset of symptoms was May 28, 2024. 11:55 Method Of Arrival: Ambulatory ll1 11:55 Acuity: LUIGI 4 ll1 Triage Assessment: 11:55 General: Appears uncomfortable, Behavior is calm, cooperative, appropriate for age. ll1 Pain: Complains of pain in back Pain radiates to right leg. Musculoskeletal: Reports pain in right leg. Historical: - Allergies: 11:54 FLU VACCINE; ll1 - PMHx: 11:54 Arthritis to spine; herniated discs; Hypertension; ll1 - PSHx: 11:54 section; hysterectomy; ll1 - Immunization history:: Adult Immunizations up to date. - Infectious Disease History:: Denies. - Social history:: Smoking status: Patient denies any tobacco usage or history of. Screenin:54 [facility] ED Fall Risk Assessment (Adult) History of falling in the last 3 months, mb9 including since admission No falls in past 3 months (0 pts) Confusion or Disorientation No (0 pts) Intoxicated or Sedated No (0 pts) Impaired Gait No (0 pts) Mobility Assist Device Used No (0 pt) Altered Elimination No (0 pt) Score/Fall Risk Level 0 - 2 = Low Risk Oriented to surroundings, Maintained a safe environment, Educated pt \T\ family on fall prevention, incl call for assistance when getting out of bed. Abuse screen: Denies threats or abuse. Nutritional screening: No deficits noted. Tuberculosis screening: No symptoms or risk factors identified. Assessment: 13:35 Reassessment: Patient and/or family updated on plan of care and expected duration. Pain ap3 level reassessed. Patient is alert, oriented x 3, equal unlabored respirations, skin warm/dry/pink. General: Appears in no apparent distress. Pain: Complains of pain in low back area. Neuro: Level of Consciousness is awake, alert, obeys commands, Oriented to person, place, time, situation, Appropriate for age Speech is normal. Cardiovascular: Patient's skin is warm and dry. Respiratory: Airway is patent Respiratory effort is even, unlabored, Respiratory pattern is regular, symmetrical. 14:55 Reassessment: Patient and/or family updated on plan of care and expected duration. Pain mb9 level reassessed. Patient is alert, oriented x 3, equal unlabored respirations, skin warm/dry/pink. Patient states feeling better. Patient states symptoms have improved. Vital Signs: 11:55 BP 123 / 78; Pulse 105; Resp 17; Temp 98.2; Pulse Ox 100% ; Weight 74.84 kg; Height 5 ll1 ft. 4 in. ; Pain 10/10; 13:34 BP 111 / 72; Pulse 86; Resp 17; Pulse Ox 100% on R/A; ap3 14:55 BP 115 / 69; Pulse 80; Resp 16; Pulse Ox 100% ; mb9 11:55 Body Mass Index 28.32 (74.84 kg, 162.56 cm) ll1 11:55 Pain Scale: Adult ll1 ED Course: 11:53 Patient arrived in ED. mg5 11:54 Arm band placed on. ll1 11:58 Triage completed. ll1 11:58 Nuno Landers MD is Attending Physician. ec2 12:04 Larisa Tubbs, RANDAL is Primary Nurse. ap3 12:06 Patient placed in an exam room, on a stretcher. ll1 12:16 Missed attempt(s): 22 gauge in right antecubital area. Bleeding controlled, band aid mb9 applied, catheter tip intact. 13:35 Placed in gown. Bed in low position. Call light in reach. Side rails up X 1. Provided mb9 Education on: press call light if needing anything. Client placed on continuous cardiac and pulse oximetry monitoring. NIBP monitoring applied. 14:54 No provider procedures requiring assistance completed. Patient did not have IV access mb9 during this emergency room visit. Administered Medications: 12:24 Drug: Acetaminophen PO 1000 mg PO once Route: PO; ap3 13:34 Follow up: Response: No adverse reaction; Pain is decreased ap3 12:24 Drug: Lidoderm Topical Patch 5 % (700 mg/patch) 1 patches Topical once; leave on for 12 ap3 hours; cover most painful area; may cut into smaller pieces Route: Topical; Site: affected area; 13:34 Follow up: Response: No adverse reaction ap3 12:48 Not Given (order changedd): diazepam5 mg IVP once ap3 12:48 Not Given (order changedd): [id number] mg IVP once ap3 13:34 Drug: Diazepam IM 10 mg IM once Route: IM; Site: right vastus lateralis; ap3 14:55 Follow up: Response: No adverse reaction mb9 13:34 Drug: Ketorolac IM 30 mg IM once Route: IM; Site: right vastus lateralis; ap3 14:55 Follow up: Response: No adverse reaction mb9 Medication: 14:54 VIS not applicable for this client. mb9 Outcome: 14:41 Discharge ordered by . ec2 14:55 Discharged to home ambulatory, mb9 14:55 Condition: stable 14:55 Discharge instructions given to patient, Instructed on discharge instructions, follow up and referral plans. Demonstrated understanding of instructions, follow-up care, medications, Prescriptions given X 1, 14:56 Patient left the ED. mb9 Signatures: Larisa Tubbs RN RN ap3 Shanna Garsia RN RN ll1 Aleah Goss RN RN mb9 Radhika Alves mg5 Nuno Landers MD MD ec2
--- NOTE | 2024-05-30 14:42 | EDPHYS ---
Physician Documentation [facility] Name: Jahaira Coe Age: 68 yrs Sex: Female : 1955 Arrival Date: 05/30/2024 Time: 11:46 Bed 7 Private MD: ED Physician Nuno Landers HPI: 05/30 12:12 This 68 yrs old Black Female presents to ER via Ambulatory with complaints of Back Pain.ec2 12:12 Patient arrives today for evaluation of right low back pain rating to the right leg. ec2 History of sciatica. No recent falls injuries or trauma. States that she is taking her Flexeril as well as hydrocodone and Tylenol. Historical: - Allergies: 11:54 FLU VACCINE; ll1 - PMHx: 11:54 Arthritis to spine; herniated discs; Hypertension; ll1 - PSHx: 11:54 section; hysterectomy; ll1 - Immunization history:: Adult Immunizations up to date. - Infectious Disease History:: Denies. - Social history:: Smoking status: Patient denies any tobacco usage or history of. ROS: 12:13 Constitutional: as per hpi ec2 Exam: 12:13 Constitutional: GEN: NAD Head: atraumatic Eyes: EOMI Ears: External ears are ec2 normal. CV: regular rate LUNGS: no respiratory distress ABD: non-distended SKIN: no evidence of rashes MSK: no evidence of trauma, right low back TTP, right buttock TTP, positive straight leg raise test. Vital Signs: 11:55 BP 123 / 78; Pulse 105; Resp 17; Temp 98.2; Pulse Ox 100% ; Weight 74.84 kg; Height 5 ll1 ft. 4 in. ; Pain 10/10; 13:34 BP 111 / 72; Pulse 86; Resp 17; Pulse Ox 100% on R/A; ap3 14:55 BP 115 / 69; Pulse 80; Resp 16; Pulse Ox 100% ; mb9 11:55 Body Mass Index 28.32 (74.84 kg, 162.56 cm) ll1 11:55 Pain Scale: Adult ll1 MDM: 12:13 Data reviewed: vital signs. ED course: Patient arrives today for right low back pain. ec2 Examination remarkable for MSK findings as above. Suspect sciatica. Will treat the patient's pain. Doubt fracture given lack of injury. Doubt spinal cord pathology given lack of red flag symptoms. Accordingly we will forego CT scan of the L-spine and MRI of the L-spine. . 14:41 Patient medically screened. ec2 Administered Medications: 12:24 Drug: Acetaminophen PO 1000 mg PO once Route: PO; ap3 13:34 Follow up: Response: No adverse reaction; Pain is decreased ap3 12:24 Drug: Lidoderm Topical Patch 5 % (700 mg/patch) 1 patches Topical once; leave on for 12 ap3 hours; cover most painful area; may cut into smaller pieces Route: Topical; Site: affected area; 13:34 Follow up: Response: No adverse reaction ap3 12:48 Not Given (order changedd): diazepam5 mg IVP once ap3 12:48 Not Given (order changedd): mg IVP once ap3 13:34 Drug: Diazepam IM 10 mg IM once Route: IM; Site: right vastus lateralis; ap3 14:55 Follow up: Response: No adverse reaction mb9 13:34 Drug: Ketorolac IM 30 mg IM once Route: IM; Site: right vastus lateralis; ap3 14:55 Follow up: Response: No adverse reaction mb9 Disposition Summary: 05/30/24 14:41 Discharge Ordered Notes: Location: Home ec2 Condition: Stable ec2 Diagnosis - Sciatica, right side ec2 Followup: ec2 - With: Private Physician - When: - Reason: Re-evaluation by your physician Discharge Instructions: - Discharge Summary Sheet ec2 - Sciatica ec2 Forms: - Medication Reconciliation Form ec2 - Antibiotic Education ec2 - Prescription Opioid Use ec2 - Patient Portal Instructions ec2 - Leadership Thank You Letter ec2 Prescriptions: - methocarbamol 500 mg Oral tablet - take 2 tablets ORAL route 4 times per day; 30 tablet; Refills: 0, Product ec2 Selection Permitted Signatures: Larisa Tubbs RN RN ap3 Shanna Garsia RN RN ll1 Aleah Goss RN RN mb9 Nuno Landers MD MD ec2 Corrections: (The following items were deleted from the chart) 13:01 12:09 IV Saline Lock ordered. ec2 ap3
[2024-05-30 15:59] VITALS: TEMP 98.2; O2SAT 100
[2024-05-30 16:02] VITALS: BP 115/69
== END 2024-05-30 14:56 | disposition home or self-care (01) ==
LOC: ER 11:46
DX: M54.31 Sciatica, right side (principal)
CPT/HCPCS: J2001; J3360